=== PATIENT | male | born 1955 | race Caucasian/White ===

== ENCOUNTER 2020-08-11 05:54 | Observation (INO) ==
--- NOTE | 2020-07-29 10:15 | PAT Medication Instructions ---
Medication Instructions Date of Service July 29, 2020 Home Medications metoprolol succinate 50 mg PO QPM diclofenac sodium 75 mg PO BID PRN tramadol 50 mg PO TID PRN atorvastatin 20 mg PO QPM lisinopril-hydrochlorothiazide 1 tab PO QAM lisinopril 10 mg PO QPM ASK your surgeon for instructions diclofenac sodium 75 mg PO BID PRN DO NOT take the morning of surgery lisinopril-hydrochlorothiazide 1 tab PO QAM Take morning of surgery With a small sip of water, OTHERWISE NOTHING TO EAT OR DRINK AFTER MIDNIGHT: tramadol 50 mg PO TID PRN (if needed, may be taken up to four hours before surgery) Take evening before surgery metoprolol succinate 50 mg PO QPM tramadol 50 mg PO TID PRN (if needed) atorvastatin 20 mg PO QPM lisinopril 10 mg PO QPM Other Notes If you have any questions please call us at [phone] or [phone] or [phone] or [phone]
--- NOTE | 2020-07-30 09:38 | Anesthesiology Consultation ---
Date of Service July 30, 2020 Assessment & Plan (1) Encounter for pre-operative examination: - Per assessment on 07/30: Travel screen negative. No known COVID-19 positive contacts or current COVID-19 related symptoms. Patient was personally COVID positive 04/27/20 ([facility]). Symptoms at time of low grade fever, body aches, elevated BP > which has since resolved. DOS > 90 days since initial COVID positive test. Surgeon arranging preop COVID testing (scheduled 08/04; [place]). Awaiting results. - S/P Right ESWL: [place]31/19[place] [facility] [place]: 07/17/20: "recently diagnosed prostate cancer.. He has had evaluation via MRI, PSA, 4K, and recently prostate biopsy.. He had a very low volume but Allison 4+3 cancer.. He has no family history of prostate cancer.. He does have chronic voiding dysfunction.. He is not currently on any medications but experiences nocturia between 2 and 6 per night regularly.. He often has small volume, weak voids" Chart Review Chart Review: Acceptable Risk for Surgery and Patient seen in Pre Admission Testing Teaching & Discussion Pre-Anesthesia Teaching/Discussion Notes: Instructed NPO after midnight before surgery,except medications with 15 cc of water. Medication instructions provided according to the PAT guidelines. History Surgery Operation Date: 08/11/20 07:30 Proposed Procedures p Robotic Laparoscopic Assisted Radical Retropubic Prostatectomy, Possible Open, Possible Pelvic Lymph Node Dissection, Possible Suprapubic Tube Placement - Jose Cedillo MD Height/Weight Height: 5 ft 11 in Weight: 90.2 kg Allergies Allergy/AdvReac Type Severity Reaction Status Date / Time No Known Allergies Allergy Verified 07/28/20 10:41 Medications Home Medications Medication Instructions Recorded Confirmed Last Taken metoprolol succinate 50 mg PO QPM 04/19/18 07/28/20 11/27/19 diclofenac sodium 75 mg PO BID PRN 11/14/18 07/28/20 12/23/18 10:00 tramadol 50 mg PO TID PRN 05/29/19 07/28/20 11/27/19 atorvastatin 20 mg PO QPM 10/10/19 07/28/20 11/27/19 lisinopril-hydrochlorothiazide 1 tab PO QAM 10/10/19 07/28/20 02/17/20 lisinopril 10 mg PO QPM 07/28/20 07/28/20 Unknown Past Medical History Medical History Cancer BCC (chest, neck, back) s/p excision Chronic back pain Chronic neck pain Chronic prostatitis Depression stable off meds History of COVID-19 Dx 04/27/20 (report documented in [facility]) > symptoms at time of low grade fever, body aches, elevated BP > symptoms resolved/currently asymptomatic Hyperlipidemia Hypertension Kidney stones Osteoarthritis Exercise / Class Metabolic Activity II 4-5 Yardwork/Stairs/Walk up hill Past Family History Family History Father Diabetes Mother Hypertension Sister Cancer Past Surgical History Surgical History History of arthroscopy Right knee History of carpal tunnel release R/L History of lithotripsy Right ESWL: [place]31[place]19[place] [facility] [place] of tonsillectomy History of total knee arthroplasty Left Past Anesthesia History No Hx of Anesthesia Complications and No Family Hx of Anesthesia Complications History of PONV No Hx of PONV and Hx of Motion Sickness (rare) Social History Smoking Status: Never smoker Do You Dip or Chew Tobacco: No Hx Alcohol Use: No Hx Substance Use: No substance use type: does not use Review of Systems Rare snoring. Patient denies chest pain, shortness of breath, dyspnea on exertion, fever, chills, cough, wheezing, palpitations. Physical Exam Vital Signs VITALS BP 155/92 P 64 TEMP 98.3 SP02 99%RA RESP 16 PHYSICAL Full neck and c-spine range of motion. Full TMJ range of motion. TMD 4 finger breaths Mallampati Score 1 Dentition: several teeth missing/broken including right front side tooth, poor dentition Lungs: clear throughout to auscultation Cardiac: regular rate and rhythm, no murmurs noted Spine: normal Carotid arteries: negative bruit Extremities: no edema Testing Laboratory Results 07/30/20 09:54 07/30/20 09:54 Urine Color Dark Yellow 07/30/20 09:54 Urine Appearance Clear (Clear) 07/30/20 09:54 Urine pH 5.0 (4.5-7.5) 07/30/20 09:54 Ur Specific [place] 1.028 (1.000-1.030) 07/30/20 09:54 Urine Protein Negative (Negative) 07/30/20 09:54 Urine Glucose (UA) Negative (Negative) 07/30/20 09:54 Urine Ketones Trace (Negative) H 07/30/20 09:54 Urine Nitrite Negative (Negative) 07/30/20 09:54 Ur Leukocyte Esterase Negative (Negative) 07/30/20 09:54 Blood Type O Positive 07/30/20 09:54 Antibody Screen NEGATIVE 07/30/20 09:54 Electrocardiogram Date: 10/10/19 Findings: + NSR @ (80) Chest X-Ray Date: 07/03/20 Findings: + NAD
[2020-07-30 10:22] LABS: Basophils # (auto) 0.03 K/uL (0-0.2); Basophils % (auto) 0.4 %; Eosinophils % (auto) 2.8 %; Hematocrit (blood only) 44.7 % (42-52); Hemoglobin 14.9 g/dL (14.0-18.0); Immature Granulocytes # (auto) 0.02 K/uL (0.00-0.02); Immature Granulocytes % (auto) 0.3 %; Lymphocytes # (auto) 1.91 K/uL (1.2-3.4); Lymphocytes % (auto) 26.6 %; Mean Corpuscular Hemoglobin 31.4 pg (25-34); Mean Corpuscular Hgb Conc 33.3 g/dL (32-36); Mean Corpuscular Volume 94.1 fL (80-100); Mean Platelet Volume 9.3 fL (7.4-10.4); Monocytes # (auto) 0.85 K/uL (0.11-0.59); Monocytes % (auto) 11.8 %; Neutrophils # (auto) 4.18 K/uL (1.4-6.5); Neutrophils % (auto) 58.1 %; Platelet Count 271 K/uL (130-400); RDW Coefficient of Variation 14.9 % (11.5-14.5); Red Blood Count 4.75 M/uL (4.7-6.1); White Blood Count 7.19 K/uL (4.8-10.8)
[2020-07-30 10:30] LABS: Appearance Urine Clear (Clear); BUN Creatinine Ratio 22.7 (10-20); Bilirubin Urine Negative (Negative); Blood Urine Negative (Negative); Calcium 9.1 mg/dl (8.5-10.1); Color Urine Dark Yellow; Creatinine Clr Calc Pharmacy 76.6 ml/min; Est GFR (African American) 89.4; Est GFR (Non-African American) 77.1; Glucose Urine UA Negative (Negative); Ketones Urine Trace (Negative); Leukocyte Esterase Urine Negative (Negative); Nitrite Urine Negative (Negative); Potassium 4.3 mmol/L (3.5-5.1); Protein Urine Negative (Negative); Specific Gravity Urine 1.028 (1.000-1.030); Urobilinogen Urine Negative (Negative)
[2020-08-11] MEDS ORDERED: HEPARIN SOD 5,000 UNIT/0.5 ML VIAL SQ SCH (06:00)
[2020-08-11] MEDS ORDERED: LR 15ML/HR IV SCH (06:00)
[2020-08-11] MEDS ORDERED: HYDROmorphone INJ 2 MG/ML SYR/VIAL IV PRN (07:13)
[2020-08-11] MEDS ORDERED: PROMETHAZINE HCL 12.5 MG in SODIUM CHLORIDE 0.9% 50 ML IV PRN (07:13)
[2020-08-11] MEDS ORDERED: ONDANSETRON INJ 2 MG/ML 2 ML VIAL IV PRN ×2 (07:13→12:10)
[2020-08-11] MEDS ORDERED: ePHEDrine sulfate 50 MG/ML AMP IV PRN (07:13)
[2020-08-11] MEDS ORDERED: ATROPINE SULFATE 0.1 MG/ML 10ML SYR IV PRN (07:13)
[2020-08-11] MEDS ORDERED: METOCLOPRAMIDE HCL INJ 5 MG/ML 2 ML VIAL IV PRN (07:13)
[2020-08-11] MEDS ORDERED: fentaNYL citrate 100 MCG/2 ML VIAL ONE (07:21)
[2020-08-11] MEDS ORDERED: MIDAZOLAM HCL 1 MG/ML 2ML VIAL ONE (07:21)
--- NOTE | 2020-08-11 07:33 | History & Physical Bridge Note ---
Date of Service August 11, 2020 History & Physical Bridge Note I have examined the patient, reviewed the History & Physical and in the interval since the performance of the History & Physical I have noted the following changes of clinical significance: no changes noted
[2020-08-11] MEDS ORDERED: BELLADONNA/OPIUM SUPP 60 MG SUPP PR ONE (08:04)
[2020-08-11] MEDS ORDERED: ONDANSETRON INJ 2 MG/ML 2 ML VIAL ONE (08:22)
[2020-08-11] MEDS ORDERED: LARYING-O-JET KIT (LTA) ONE (08:22)
[2020-08-11] MEDS ORDERED: PHENYLEPHRINE 100MCG/ML 5ML SYR ONE (08:22)
[2020-08-11] MEDS ORDERED: LIDOCAINE HCL 2% 2 ML VIAL/AMP(20MG/ML) INFIL ONE (08:22)
[2020-08-11] MEDS ORDERED: DEXAMETHASONE SOD INJ 4 MG/ML VIAL ONE (08:22)
[2020-08-11] MEDS ORDERED: GLYCOPYRROLATE 0.2 MG/ML VIAL ONE (08:22)
[2020-08-11] MEDS ORDERED: PROPOFOL IV EMULSION 10 MG/ML 20 ML VIAL IV ONE (08:22)
[2020-08-11] MEDS ORDERED: ROCURONIUM BROMIDE 10 MG/ML 5 ML VIAL IV ONE ×4 (08:22→09:25)
[2020-08-11] MEDS ORDERED: ePHEDrine sulfate 50 MG/ML SYR ONE (08:22)
[2020-08-11] MEDS ORDERED: NEOSTIGMINE METHYLSULFATE 5 MG/5 ML SYR ONE (08:22)
[2020-08-11] MEDS ORDERED: HYDROmorphone INJ 2 MG/ML SYR/VIAL ONE (08:23)
[2020-08-11] MEDS ORDERED: ceFAZolin 2000MG 2,000 MG/15 ML SYR IV ONE (09:06)
[2020-08-11] MEDS: BUPIVACAINE 0.5 % 5 MG/1 ML MPF 30ML VIAL ONE ×2 (10:30→12:24)
[2020-08-11] MEDS: fentaNYL citrate 100 MCG/2 ML VIAL IV PRN ×3 (10:55→11:20)
--- NOTE | 2020-08-11 11:04 | Operative Report ---
[facility] Post Operative Report Pre & Post Diagnosis Operation Date: 08/11/20 07:30 Pre-Op Diagnosis: Prostate Cancer Post-Op Diagnosis: Prostate Cancer I identified the patient and participated in the time-out.: Yes Procedure Operation Date: 08/11/20 07:30 Actual Procedures p Robotic Laparoscopic-Assisted Radical Retropubic Prostatectomy with Bilateral Pelvic Lymph Node Dissection(Not Applicable) - Jose Cedillo MD Surgeon Bladimir Cedillo MD Community Outreach Specialist Olinda Toscano Estimated Blood Loss 50 Findings Consistent with Post-Op Diagnosis Specimens 1. Periprostatic fat 2. Prostate and seminal vesicles 3. Left pelvic lymph nodes 4. Right pelvic lymph nodes Description of Procedure The patient was identified in the preoperative holding area, appropriate informed consents were reviewed and completed, and he was transported to the operating suite. Subcutaneous heparin was administered in the pre-operative h olding area. Upon arrival in the operating suite, he received appropriate antibiotics and general anesthesia. He was positioned in dorsal lithotomy, a B&O suppository was inserted after digital rectal exam, and he was prepped and draped in standard fashion. A Gallardo catheter was inserted in the sterile field. A Veress needle was passed per umbilicus with uniform insufflation of the abdomen to 15mmHg. He was placed in steep Trendelenburg position. A periumbilical incision was then made to accommodate a 12mm Visiport with 10mm 0degree laparoscope. Inspection of the abdomen was carried out, and there was no evidence of traumatic entry or injury secondary to the Veress needle. After confirming a clear anterior abdominal wall, ports were subsequently placed in standard robotic prostatectomy fashion without incident. To begin the robotic portion of the case, the left lateral aspect of the sigmoid was mobilized off of the left pelvic side wall to allow the pouch of Octavio to be appropriately visualized. I then made an incision in the pouch of Octavio, overlying the seminal vesicles. Both SVs as well as the ampullae of the vasa were entirely dissected, with the vasa transected 3cm from the prostate. The medial umbilical ligaments were then controlled with bipolar electrocautery just inferior to the umbilicus. Following cauterization, they were divided utilizing monopolar cautery. A peritoneal incision was carried from this location to the medial aspect of the internal inguinal rings bilaterally with care to avoid opening through the ring. This incision was concluded when the vas deferens was reached. Dissection of the bladder and prostate off of the posterior aspect of the pubic arch was completed allowing full visualization of the prostate. The fat overlying the prostate was removed en bloc and passed off the table as a specimen labeled "periprostatic fat". The endopelvic fascia was cleared during this portion of the procedure, and subsequently opened - first on the right and then the left. The incision through the endopelvic fascia began near the prostate-bladder junction and was carried to the apex with extreme care to preserve all lateral levator musculature as well as the periurethral musculature and sphincter complex. I additionally preserved the puboprostatic ligaments. I then controlled the DVC with a 3-0 V-lock suture in overlapping/figure of 8 fashion. The lymph node dissection was then conducted. External iliac vessels were identified on the pelvic side wall. The packet of fat and lymphatic tissue that resides just under the iliac vein was elevated and off of the vein with a split and roll technique. The packet was dissected laterally to the circumflex vein and distally to the obturator nerve which was preserved. The proximal aspect of the packet was carried towards the bifurcation of the iliac vessels. A combination of monopolar and bipolar cautery were used to assist with control. After completing the dissection on both sides, the packets were collected and passed off of the table as specimens labeled "pelvic lymph nodes". My attention then returned to the prostate, with identification of the bladder neck aided by gentle traction on the Gallardo catheter and lateral to medial pressure at the presumed level of the bladder neck with the robotic instruments. An anterior cystotomy was made, the Gallardo balloon deflated and the catheter guided through the incision to allow anterior retraction. I attempted to preserve maximal bladder neck musculature as I circumferentially dissected around the bladder neck. After incision through the posterior aspect of the mucosa, the dissection was carried through detrusor muscle until the bilateral ampullae of the vasa were identified. The previously dissected vasa and SVs were brought through the incision and used to elevated the prostate anteriorly. A posterior plane behind the prostate was then developed - splitting Denonvilliers's fascia. This dissection was carried as far as possible towards the apex as well as far as possible laterally. An incision in the lateral prostatic fascia was then made bilaterally to facilitate control of the vascular pedicles and preservation of the nerve bundles. Vasculature running along the posterior/lateral aspect of the prostate was preserved as well as the tissue containing the nerves. The pedicles were then controlled with a series of Weck clips. As I dissected along the right lateral aspect of the prostate the prostate itself did start to split, I was able to correct include all prostatic tissue with the specimen, however there was a small tear in the capsule of the prostate. Further inspection revealed that all prostate tissue was appropriately removed. The apical attachments of the prostate were remaining at that stage. The DVC was divided after control with bipolar cautery over the prostate. Continuous inspection from anterior and lateral views allowed me to closely follow the a pical contour of the prostate and maximally preserve urethral length and tissue. The prostate was entirely freed at that point, and collected in an EndoCatch bag before being moved out of the field of vision. Hemostasis was confirmed and anastomosis of the bladder and urethra was completed utilizing a double armed V- Lock stitch. A new Gallardo catheter was inserted and the anastomosis tested with irrigation. There was no evidence of leak. A navi style stitch was placed bilaterally to functionally marsupialize the area of the lymph node dissection. The robot was undocked, the specimen extracted through expansion of the carine- umbilical camera port. The fascia was closed with a series of 0-PDS figure of 8 stitches. The right certified pharmacist assistant port was closed in two layers - with a figure of 8 0-Vicryl to reapproximate the fascia followed by 4-0 Monocryl to close the skin. Monocryl was used to close all other skin incisions. All wounds were dressed with Dermabond. Olinda Toscano assisted from incision to closure. The case was concluded and the patient taken to the PACU in stable condition. I attest to the content of the Intraoperative Record and any orders documented therein. Any exceptions are noted below.
[2020-08-11 11:16] LABS: Basophils # (auto) 0.02 K/uL (0-0.2); Basophils % (auto) 0.2 %; Eosinophils # (auto) 0.02 K/uL (0-0.5); Eosinophils % (auto) 0.2 %; Hematocrit (blood only) 42.8 % (42-52); Hemoglobin 14.6 g/dL (14.0-18.0); Immature Granulocytes # (auto) 0.02 K/uL (0.00-0.02); Immature Granulocytes % (auto) 0.2 %; Lymphocytes # (auto) 0.82 K/uL (1.2-3.4); Lymphocytes % (auto) 7.8 %; Mean Corpuscular Hemoglobin 31.7 pg (25-34); Mean Corpuscular Volume 92.8 fL (80-100); Mean Platelet Volume 9.1 fL (7.4-10.4); Monocytes # (auto) 0.13 K/uL (0.11-0.59); Monocytes % (auto) 1.2 %; Neutrophils # (auto) 9.48 K/uL (1.4-6.5); Neutrophils % (auto) 90.4 %; Platelet Count 209 K/uL (130-400); RDW Coefficient of Variation 14.5 % (11.5-14.5); RDW Standard Deviation 49.3 fL (36.4-46.3); Red Blood Count 4.61 M/uL (4.7-6.1); White Blood Count 10.49 K/uL (4.8-10.8)
[2020-08-11 11:18] LABS: Mean Corpuscular Hgb Conc 34.1 g/dL (32-36)
[2020-08-11 11:32] LABS: BUN Creatinine Ratio 18.5 (10-20); Calcium 8.9 mg/dl (8.5-10.1); Creatinine Clr Calc Pharmacy 60.5 ml/min; Est GFR (African American) 67.1; Est GFR (Non-African American) 57.9; Potassium 4.1 mmol/L (3.5-5.1)
[2020-08-11] MEDS ORDERED: MoRPHine SULFATE 2 MG/ML CARP IV PRN ×2 (12:10)
[2020-08-11] MEDS ORDERED: oxyCODONE HCL IR 5 MG TAB (IMMEDIATE RELEASE) PO PRN (12:10)
[2020-08-11] MEDS ORDERED: ACETAMINOPHEN 325 MG TAB PO PRN (12:10)
[2020-08-11] MEDS: LACTATED RINGER'S 1,000 ML IV SCH ×2 (12:37→21:38)
--- NOTE | 2020-08-11 13:51 | Anesthesiology Progress Note ---
Date of Service August 11, 2020 Anesthesia Post Procedure Vital Signs Vital Signs: Temp Pulse Pulse Resp BP BP Pulse Ox 08/11/20 12:58 95 H 16 153/84 H 96 08/11/20 12:29 36.9 C 93 H 16 144/94 H 92 08/11/20 12:01 36.3 C L 86 16 139/88 94 08/11/20 11:50 97 H 16 136/98 95 08/11/20 11:45 86 12 135/89 94 08/11/20 11:35 36.6 C 85 13 140/90 98 08/11/20 11:25 86 14 135/82 95 08/11/20 11:15 89 13 134/93 96 08/11/20 11:05 83 20 159/94 H 97 08/11/20 10:55 88 14 155/93 H 98 08/11/20 10:47 36.4 C L 97 H 12 166/100 H 97 08/11/20 06:10 36.7 C 107 H 18 148/107 H 97 Pain Intensity Abdomen: Pain Intensity: 4 Transfer of Care Handoff Completed per policy Notes Mental Status: alert / awake / arousable and participated in evaluation Patient Amnestic to Procedure: Yes Nausea / Vomiting: adequately controlled Pain: adequately controlled Airway Patency, RR, SpO2: stable & adequate BP & HR: stable & adequate Hydration State: stable & adequate Anesthetic Complications: no major complications apparent
[2020-08-11] MEDS: oxyCODONE HCL IR 5 MG TAB (IMMEDIATE RELEASE) PO PRN ×2 (14:21→21:31)
[2020-08-11] MEDS: ceFAZolin 2000MG 2,000 MG/15 ML SYR IV SCH (16:01)
[2020-08-11] MEDS ORDERED: METOPROLOL SUCC 50MG EXT REL TAB PO SCH (21:00)
[2020-08-11] MEDS ORDERED: ATORVASTATIN 20 MG TAB PO SCH (21:00)
[2020-08-11] MEDS ORDERED: lisinopril 10 MG TAB PO SCH (21:00)
[2020-08-11] MEDS: HEPARIN SOD 5,000 UNIT/0.5 ML VIAL SQ SCH (21:31)
[2020-08-11] MEDS: OXYBUTYNIN CHLORIDE 5 MG TAB PO SCH (21:34)
[2020-08-12] MEDS: ceFAZolin 2000MG 2,000 MG/15 ML SYR IV SCH (00:05)
[2020-08-12] MEDS: oxyCODONE HCL IR 5 MG TAB (IMMEDIATE RELEASE) PO PRN ×2 (01:41→09:24)
[2020-08-12 06:27] LABS: Basophils # (auto) 0.01 K/uL (0-0.2); Basophils % (auto) 0.1 %; Eosinophils # (auto) 0.02 K/uL (0-0.5); Eosinophils % (auto) 0.2 %; Hematocrit (blood only) 39.5 % (42-52); Hemoglobin 13.3 g/dL (14.0-18.0); Immature Granulocytes # (auto) 0.04 K/uL (0.00-0.02); Immature Granulocytes % (auto) 0.3 %; Lymphocytes # (auto) 2.21 K/uL (1.2-3.4); Mean Corpuscular Hemoglobin 31.3 pg (25-34); Mean Corpuscular Hgb Conc 33.7 g/dL (32-36); Mean Corpuscular Volume 92.9 fL (80-100); Mean Platelet Volume 9.3 fL (7.4-10.4); Monocytes # (auto) 1.53 K/uL (0.11-0.59); Monocytes % (auto) 11.8 %; Neutrophils # (auto) 9.18 K/uL (1.4-6.5); Neutrophils % (auto) 70.6 %; Platelet Count 209 K/uL (130-400); RDW Coefficient of Variation 14.7 % (11.5-14.5); RDW Standard Deviation 50.2 fL (36.4-46.3); Red Blood Count 4.25 M/uL (4.7-6.1); White Blood Count 12.99 K/uL (4.8-10.8)
[2020-08-12 06:58] LABS: BUN Creatinine Ratio 18.8 (10-20); Calcium 8.2 mg/dl (8.5-10.1); Creatinine Clr Calc Pharmacy 67.3 ml/min; Est GFR (African American) 76.4; Est GFR (Non-African American) 65.9; Potassium 3.7 mmol/L (3.5-5.1)
[2020-08-12] MEDS: LACTATED RINGER'S 1,000 ML IV SCH (07:07)
--- NOTE | 2020-08-12 08:20 | Urology Progress Note ---
Date of Service August 12, 2020 Assessment & Plan (1) Prostate cancer: pod #1 s/p RALP w/ LND - ambulate - HL IVF - advance diet - likely d/c home this afternoon Admission and Anticipated Discharge Date Admission Date: August 11, 2020 Subjective doing very well slept well ambulated pain controlled urine clear Physical Exam Physical Exam: abd soft incisions appropriate urine clear Results & Data ([facility]) Vital Signs (Past 12 Hours) Vital Signs Temp Pulse Resp BP BP Pulse Ox 08/12/20 07:11 36.8 C 60 17 116/71 99 08/12/20 03:50 36.7 C 70 18 103/45 L 94 08/11/20 22:53 37.3 C 84 18 112/46 L 93 PG Care Time/CCT Total # of Minutes Spent Total Time Spent with Patient: Total time spent is greater than 50% in coordination of care (as documented) at patient's floor/unit and/or counseling patient: Coding Level of Care Code 43099 Subseq Hosp Care Lvl 2 Diagnoses Prostate cancer C61
[2020-08-12] MEDS ORDERED: LISINOPRIL/HCTZ 20/12.5MG 1 TAB TAB PO SCH (09:00)
[2020-08-12] MEDS: OXYBUTYNIN CHLORIDE 5 MG TAB PO SCH (09:15)
[2020-08-12] MEDS: HEPARIN SOD 5,000 UNIT/0.5 ML VIAL SQ SCH (09:16)
--- NOTE | 2020-08-12 13:29 | Discharge Summary ---
Date of Service August 12, 2020 Admission HPI Per Admitting Provider 64-year-old gentleman with recently diagnosed prostate cancer He has had evaluation via MRI, PSA, 4K, and recently prostate biopsy He had a very low volume but Allison 4+3 cancer He has no family history of prostate cancer He does have chronic voiding dysfunction He is not currently on any medications but experiences nocturia between 2 and 6 per night regularly He often has small volume, weak voids He has not currently sexually active nor does he feel that this is a priority He has not had prior abdominal surgery He does have chronic arthritic related issues including prior left knee replacement Chronic back pain related to scoliosis He has had an extensive history of basal cell carcinomas of the skin Admission Exam Per Admitting Provider See H&P Principal Diagnosis Prostate Cancer Discharge Exam Constitutional well developed, well nourished and comfortable; no acute distress Respiratory normal respiratory effort and able to speak in complete sentences; no respirat ory distress and no audible wheezes Cardiovascular Extremities: no calf tenderness and no edema Gastrointestinal (Abdomen) Inspection/Auscultation: abdomen not distended abd soft incisions appropriate Psychiatric Orientation: alert, oriented x 3 and cooperative Motor Behavior: steady gait and station Affect: euthymic affect Genitourinary Pantoja catheter intact draining clear yellow urine. Discharge Data Allergies Allergy/AdvReac Type Severity Reaction Status Date / Time No Known Allergies Allergy Verified 08/11/20 06:08 Procedures Performed Operation Date: 08/11/20 07:30 Actual Procedures p Robotic Laparoscopic-Assisted Radical Retropubic Prostatectomy with Bilateral Pelvic Lymph Node Dissection(Not Applicable) - Jose Cedillo MD Hospital Course (1) Prostate cancer: Patient admitted status post robotic laparoscopic-assisted radical retropubic prostatectomy with bilateral pelvic lymph node dissection on 08/11/20. No complications post procedure, tolerated well. He was seen POD#1, feeling well, clinically progressing. Vital signs and post-operative labs appropriate and as expected. Pain controlled, tolerating advanced diet, ambulating without dizziness. Discharged home in stable condition 08/12/20, home with pantoja catheter. Total Time Total Time Spent Total Time Spent (In Minutes): 10 Discharge Plan Discharge Items Patient Disposition: Home - Self-Care Reason For Visit: Prostate Cancer Discharge Diagnosis: Prostate Cancer Activity: Per Instructions section Lifting: No more than 10 pounds Bathing Comment: No tub baths or soaking. Okay to shower tomorrow. Sexual Activity: Wait until after follow-up appointment Exercise/Sports: Wait until after follow-up appointment Driving/Machine Use: Do not drive while taking narcotic pain medication. Non-emergency contact: Surgeon and Urologist Call non-emergency contact if: your pain is not controlled, your temperature is above 101, your wound has increased redness, your wound has increased drainage and your wound pain has increased Follow-up/Referrals: Jose Cedillo MD [Physician] - 08/26/20 11:45 am Braden Zamora MD [Primary Care Provider] - 08/17/20 11:20 am [facility]rology,Nurse [FAKE FOR SCHEDULES] - 08/17/20 10:00 am Diet: Regular Addtl Attending Provider Instructions: Please take all medications as prescribed and keep all follow-ups as scheduled. Please call our office at [phone] with any questions, concerns or need to reschedule appointments for any reason. We are happy to assist you We have sent an antibiotic to your pharmacy of choice. Please begin antibiotic as prescribed the day BEFORE your scheduled voiding trial at [facility]. Please continue antibiotic every 12 hours through the day AFTER your voiding trial. If you take the as needed pain medication, Percocet, do not take your prescribed Tramadol. Do not take medication together on the same day. Activity: We recommend having someone with you for the first few days after surgery to help care for you. For the first 2 weeks after surgery, we would like you to get up and walk around your house. However, we recommend limit physical activity that would increase your heart rate. This will allow your body to rest and heal. Take naps if you feel tired. Don't lift anything heavier than 10 pounds, mow the law or ride a bicycle until your follow-up appointment. Please avoid long car rides. Home Care: Unless directed otherwise, drink 6 to 8 glasses of water a day (enough to keep your urine light colored). This will also help keep a healthy flow of urine. We recommend using a stool softener for the first two weeks to avoid constipation. Pantoja Catheter or Suprapubic Catheter care: Keep the catheter well secured with either a leg back or leg strap with large bag. Empty your bag when it's about half full. You may notice some blood in the bag. This is normal after surgery and while the catheter is in place. Use mild soap (such as Dove or Dial) and water to wash the catheter and the head of your penis daily, or more frequently if needed. Return to your normal diet, we encourage good protein intake to promote healing. You may shower as normal. Please avoid tub baths or soaking until catheter removed and incisions well healed. Wearing sweat pants while you have the catheter is recommended, they will be more comfortable. Follow-up Your follow up appointments for having your catheter removed, and follow up with your physician should already be scheduled. If you have any questions regarding this, please contact our office. Your final pathology report will be discussed at your physician follow-up appointment. Call [facility] at [phone] right away if you have any of the following: Chest pain or trouble breathing (call 271 or go to the hospital) Fever of 101F or higher, uncontrolled vomiting Heavy bleeding, clots, or bright red blood from the catheter Catheter that falls out or stops draining Foul-smelling discharge from your catheter Redness, swelling, warmth, or increased pain at your incision site Drainage, pus, or bleeding from your incision Pending Studies at Discharge: Yes Studies:: pathology Stand-Alone Forms: My [facility], Opioid Pain Management, Work/School Release (Inpt), Smoking Cessation Medications and DC Order Prescriptions: New ciprofloxacin HCl 500 mg tablet 500 mg PO BID 3 Days Qty: 6 RF: 0 docusate sodium [Colace] 100 mg capsule 100 mg PO BID Qty: 60 RF: 0 oxycodone-acetaminophen [Percocet] 5-325 mg tablet 1 tab PO TID PRN (Reason: pain) Qty: 7 RF: 0 Continued metoprolol succinate 25 mg tablet extended release 24 hr 50 mg PO QPM RF: 0 diclofenac sodium 75 mg tablet,delayed release (DR/EC) 75 mg PO BID PRN (Reason: Moderate Pain (Scale Score 5-6)) RF: 0 tramadol 50 mg Tablet 50 mg PO TID PRN (Reason: Pain) RF: 0 atorvastatin 20 mg tablet 20 mg PO QPM RF: 0 lisinopril-hydrochlorothiazide 20-12.5 mg tablet 1 tab PO QAM RF: 0 lisinopril 10 mg Tablet 10 mg PO QPM RF: 0 Discharge Orders: Discharge Order (Routine); Ordered 08/12/20 Ordered By: Olinda Vicente/Other Patient Handouts: Emptying and Cleaning Your ..., Indwelling Urinary Catheter Dc, Discharge Instructions Caring for ... Admission Data Admit Date/Time: 08/11/20 10:37 Attending Provider: Jose Cedillo Admit Provider: Jose Cedillo Primary Care Provider: Braden Zamora Other Interventions: Discharge Summary Assessment (RN) Last Done: 08/12/20 12:28 Coding Level of Care Code D/C Day Management <30 mins Diagnoses Prostate cancer C61
== END 2020-08-12 13:48 | disposition home or self-care (01) ==
LOC: ASU 05:54 → INTOOBSV 10:37 → 3N 10:37

== ENCOUNTER 2022-10-30 14:12 | Inpatient (IN) ==
[2022-10-30] MEDS ORDERED: ONDANSETRON INJ 2 MG/ML 2 ML VIAL IV STA (14:31)
[2022-10-30] MEDS ORDERED: ACETAMINOPHEN 500 MG TAB PO STA (14:31)
[2022-10-30] MEDS ORDERED: MoRPHine SULFATE 4 MG/ML 1 ML CARP\\VIAL IV STA (14:31)
[2022-10-30] MEDS ORDERED: LABETALOL HCL IV 5 MG/ML 20ML IV STA (14:31)
[2022-10-30] MEDS ORDERED: KETOROLAC TROMETHAMINE 15 MG/ML VIAL IV STA (14:31)
--- NOTE | 2022-10-30 14:43 | Emergency Department Note ---
Impression & Plan Lower back pain, Sciatica, Hypertensive urgency, Urinary incontinence, Failure of outpatient treatment ED Provider Note NAME: IZZY RICE AGE: 67 SEX: M : 1955 ARRIVES VIA: Walk-In INFORMANT: [Patient] ED PROVIDER(S): [Genaro Trevino MD] CHIEF COMPLAINT: Back pain HISTORY OF PRESENT ILLNESS: The patient is a 67-year-old male with back pain. He has been to this ER several times over the last month to 2 months. The patient is currently on tramadol, he is prescribed 120 tramadol every month. He is on gabapentin and he also has some diclofenac. The patient has taken courses of steroids to help with his back pain, he has used some short prescriptions of oxycodone. 6 days ago, the patient was at her ED and a lumbar MRI was done. There was significant stenosis and some chronic findings but there was nothing thought to be acutely pathologic and in need of emergent surgery. The patient presents today complaining of increasing back pain and pain in the left buttock and down the left leg. He has lost urinary continence twice. No issues with his bowels. No fever, no cough or congestion. He has not fallen. The patient is currently still working. The patient worked the last 6 out of 7 days. The patient states that he is due to start PT this upcoming week. He has an appointment with his back surgeon in the [place] area December 06. Of note, as per triage, the patient is quite hypertensive. He states he did take his BP medications this morning. PMHx/PSHx: See Below SOCIAL HISTORY: See Below. PHYSICAL EXAM: GENERAL: Patient is in no acute distress. HEENT: No acute trauma, normocephalic atraumatic, mucous membranes moist, no nasal congestion. NECK: No stridor, no adenopathy, no meningismus, trachea is midline. LUNGS: Clear to auscultation bilaterally, no wheeze, no rhonchi, breath sounds equal. HEART: Mildly tachycardic, regular rhythm, no murmurs. ABDOMEN: Soft, nontender, bowel sounds positive, no peritonitis. No bladder distention noted. EXTREMITIES: No cyanosis or edema, full range of motion of all the joints without pain or difficulty, no signs for acute trauma. NEUROLOGIC: Oriented x 3, no acute motor or sensory deficits, no focal weakness. 2/4 patellar and Achilles reflexes bilaterally. Patient has sensation around the anus and perineum. His anal wink is intact. SKIN: No rash, no jaundice, no diaphoresis. DIFFERENTIAL DIAGNOSIS: Lumbar disc disease, disc herniation, nerve impingement, spinal stenosis, urinary retention, UTI, cauda equina syndrome, among others. EMERGENCY DEPARTMENT COURSE/PROCEDURES: Prior/Outside records reviewed: Recent ED visits, recent radiology reports. Postvoid bladder scan: 0 cc, no urinary retention. ECG per my interpretation: Indication was back pain. The ECG shows a normal sinus rhythm with a rate of 99. There is no ST elevation, no PVCs. The QTc is 446. MEDICAL DECISION MAKING: There is no leukocytosis or concerning anemia. There is a normal platelet count . No renal failure or significant electrolyte abnormality. C-reactive protein is not elevated. Sed rate is not elevated. Urinalysis shows some red blood cells, no infection. COVID test returned negative. Postvoid bladder scan did not show any significant urinary retention. On exam, the patient was not febrile. He had equal reflexes in his lower extremities bilaterally. He had a normal sensory exam in the groin and perineum. He had normal anal tone/wink. I did review the patient's recent visits as well as the recent MRI imaging. I did speak with Dr. Lopez of spinal surgery. The patient will be hospitalized and seen by spinal surgery in the morning. No reason for a new emergent MRI today. Patient received IV labetalol because of his higher blood pressure. He was given IV morphine for pain, IV Toradol for pain. He was given oral Tylenol. He received IV Zofran. Patient's blood pressure has come down slightly. He does seem more comfortable with the above medications administered. The patient will be hospitalized for pain control and pain management/spinal surgery consult. He will have his blood pressure controlled I did speak with case management, the on-call hospitalist was consulted. DISPOSITION: Patient's presentation and findings warrant a hospital stay. Past Med/Surg History Medical History Anxiety Arthritis Cancer BCC (chest, neck, back) s/p excision Chronic back pain Chronic neck pain Chronic prostatitis Depression stable off meds Depression with suicidal ideation History of COVID-19 Dx 04/27/20 (report documented in [facility]) > symptoms at time of low grade fever, body aches, elevated BP > symptoms resolved/currently asymptomatic History of nocturia Hyperlipidemia Hypertension Lumbar radiculopathy Osteoarthritis Prostate cancer Surgical History History of arthroscopy Right knee History of carpal tunnel release R/L History of lithotripsy Right ESWL: 05/31/19: LMA#5 at [facility] History of tonsillectomy History of total knee arthroplasty Left History of total right knee replacement (TKR) (~08/2021) [facility] Hx of prostatectomy due to cancer and no chemo/radiation needed Family History Father Diabetes Mother Hypertension Sister Cancer Social History Smoking Status: Never smoker Tobacco Type: Cigarettes Second Hand Exposure: No; Do You Dip or Chew Tobacco: No; Hx Alcohol Use: No Hx Substance Use: No Preferred Language: Slovak Communication Ability: Effective Visual Impairment: No Limitations Hearing Ability: Normal Boarding Kennel Or Cattery Operator Required: No Beliefs That Will Affect Care: None marital status: Current Living Situation: Family Current Living Situation Comment: SON BARBARA LIVES WITH PT current occupational status: employed How many Children do You have: 3 Feels Safe at Home: Yes Assistive Devices: None Allergies Allergies Allergy/AdvReac Type Severity Reaction Status Date / Time No Known Allergies Allergy Verified 10/24/22 22:16 Home Meds Home Medications Medication Instructions Recorded Confirmed atorvastatin 20 mg tablet 20 mg PO QAM 10/10/19 10/30/22 metoprolol succinate 50 mg 50 mg PO QAM 01/13/21 10/30/22 tablet,extended release 24 hr gabapentin 300 mg capsule See Rx Instructions .Route .COMPLEX 06/13/21 10/30/22 lisinopril 20 mg tablet 20 mg PO DAILY 06/13/21 10/30/22 escitalopram oxalate 10 mg tablet 10 mg PO QAM 12/04/21 10/30/22 amlodipine 10 mg tablet 10 mg PO QAM 01/25/22 10/30/22 lisinopril 20 1 tab PO QAM 01/25/22 10/30/22 mg-hydrochlorothiazide 25 mg tablet albuterol sulfate 90 mcg/actuation 2 puff inhalation Q6H PRN 10/24/22 10/30/22 aerosol inhaler COUGH/WHEEZING meclizine 25 mg tablet 12.5 - 25 mg PO TID PRN Dizziness 10/24/22 10/30/22 ondansetron 4 mg disintegrating 4 mg PO Q8H PRN nausea and vomiting 10/24/22 10/30/22 tablet sennosides 8.6 mg tablet (Senokot) 17.2 mg PO QAM 10/24/22 10/30/22 spironolactone 25 mg tablet 25 mg PO QAM 10/24/22 10/30/22 tramadol 50 mg tablet 50 mg PO Q6H PRN pain 10/24/22 10/30/22 Results & Data (ED) Vital Signs Vital Signs - 24 hr 10/30/22 14:14 10/30/22 15:26 10/30/22 16:13 Temperature 37.0 C Temperature Source Temporal Artery Scan Pulse Rate 123 H Pulse Rate [Finger] 91 H 107 H Respiratory Rate 98 H 20 20 Respiratory Effort / Characteristics Non-Labored Non-Labored Spontaneous Non-Labored Spontaneous Respiratory Depth Normal Normal Respiratory Pattern Regular Regular Blood Pressure 203/123 H Blood Pressure [Right Arm] 165/119 H 164/104 H Blood Pressure Mean 149 Blood Pressure Mean [Right Arm] 134 124 Blood Pressure Position [Right Arm] Semi-fowlers Semi-fowlers Pulse Oximetry 98 96 95 Oxygen Delivery Method Room Air Room Air Room Air Sepsis Recent Fever Within 48 Hours No Sepsis New/Unexplained Change in Mental Status N/A Sepsis Action Taken by Nursing No Action Required Home Medications Current Medication List: was personally reviewed by me Laboratory Data Attestation: I reviewed the patient's lab results. 10/30/22 14:00 10/30/22 14:00 Lab Results 10/30/22 10/30/22 10/30/22 Range/Units 14:00 14:00 14:00 WBC 10.57 (4.8-10.8) K/ul RBC 4.93 (4.70-6.10) M/uL Hgb 15.2 (14.0-18.0) g/dl Hct 45.5 (42.0-52.0) % MCV 92.3 (80.0-100.0) fL MCH 30.8 (25.0-34.0) pg MCHC 33.4 (32.0-36.0) g/dL RDW Std Deviation 50.9 H (36.4-46.3) fL RDW Coeff of Jay 14.8 H (11.5-14.5) % Plt Count 270 (130-400) K/uL MPV 9.0 L (9.4-12.4) fL Immature Gran % (Auto) 1.5 % Neut % (Auto) 87.2 % Lymph % (Auto) 8.5 % [place] % (Auto) 2.5 % Eos % (Auto) 0.0 % Baso % (Auto) 0.3 % Neut # (Auto) 9.22 H (1.40-6.50) K/uL Lymph # (Auto) 0.90 L (1.2-3.4) K/uL [place] # (Auto) 0.26 (0.11-0.59) K/uL Eos # (Auto) 0.00 (0-0.50) K/uL Baso # (Auto) 0.03 (0-0.2) K/uL Immature Gran # (Auto) 0.16 (0.01-0.20) K/uL ESR 11 (0-20) mm/hr Sodium 139 (136-145) mmol/L Potassium 4.5 (3.5-5.1) mmol/L Chloride 103 (98-107) mmol/L Carbon Dioxide 27 (21-32) mmol/L Anion Gap 9 (3-11) BUN 19 (6-23) mg/dl Creatinine 0.96 (0.6-1.4) mg/dl Est Cr Clr Drug Dosing 85.9 ml/min Est GFR ( Amer) 93.8 ml/min Est GFR (Non-Af Amer) 80.9 ml/min BUN/Creatinine Ratio 19.8 (10-20) Glucose 166 H (70-99(Fasting)) mg/dl Calcium 9.2 (8.6-10.3) mg/dl C-Reactive Protein < 0.50 (0-0.5) mg/dl Urine Color Urine Appearance (Clear) Urine pH (4.5-7.5) Ur Specific [place] (1.000-1.030) Urine Protein (Negative) Urine Glucose (UA) (Negative) Urine Ketones (Negative) Urine Blood (Negative) Urine Nitrite (Negative) Urine Bilirubin (Negative) Urine Urobilinogen (Negative) Ur Leukocyte Esterase (Negative) Urine WBC (Auto) (0-5) /hpf Urine RBC (Auto) (0-4) /hpf U Hyaline Cast (Auto) (0-5) /lpf U Epithel Cells (Auto) (0-5) /lpf Urine Bacteria (Auto) (Negative) SARS-CoV-2, RNA, NAAT (NEGATIVE) 10/30/22 10/30/22 Range/Units 14:35 16:13 WBC (4.8-10.8) K/ul RBC (4.70-6.10) M/uL Hgb (14.0-18.0) g/dl Hct (42.0-52.0) % MCV (80.0-100.0) fL MCH (25.0-34.0) pg MCHC (32.0-36.0) g/dL RDW Std Deviation (36.4-46.3) fL RDW Coeff of Jay (11.5-14.5) % Plt Count (130-400) K/uL MPV (9.4-12.4) fL Immature Gran % (Auto) % Neut % (Auto) % Lymph % (Auto) % [place] % (Auto) % Eos % (Auto) % Baso % (Auto) % Neut # (Auto) (1.40-6.50) K/uL Lymph # (Auto) (1.2-3.4) K/uL [place] # (Auto) (0.11-0.59) K/uL Eos # (Auto) (0-0.50) K/uL Baso # (Auto) (0-0.2) K/uL Immature Gran # (Auto) (0.01-0.20) K/uL ESR (0-20) mm/hr Sodium (136-145) mmol/L Potassium (3.5-5.1) mmol/L Chloride (98-107) mmol/L Carbon Dioxide (21-32) mmol/L Anion Gap (3-11) BUN (6-23) mg/dl Creatinine (0.6-1.4) mg/dl Est Cr Clr Drug Dosing ml/min Est GFR ( Amer) ml/min Est GFR (Non-Af Amer) ml/min BUN/Creatinine Ratio (10-20) Glucose (70-99(Fasting)) mg/dl Calcium (8.6-10.3) mg/dl C-Reactive Protein (0-0.5) mg/dl Urine Color Yellow Urine Appearance Clear (Clear) Urine pH 6.0 (4.5-7.5) Ur Specific [place] 1.022 (1.000-1.030) Urine Protein 2+ H (Negative) Urine Glucose (UA) Negative (Negative) Urine Ketones Negative (Negative) Urine Blood 2+ H (Negative) Urine Nitrite Negative (Negative) Urine Bilirubin Negative (Negative) Urine Urobilinogen Negative (Negative) Ur Leukocyte Esterase Negative (Negative) Urine WBC (Auto) 0 (0-5) /hpf Urine RBC (Auto) 10-30 H (0-4) /hpf U Hyaline Cast (Auto) 1-5 (0-5) /lpf U Epithel Cells (Auto) 5-10 H (0-5) /lpf Urine Bacteria (Auto) Negative (Negative) SARS-CoV-2, RNA, NAAT NEGATIVE (NEGATIVE) Administered Medications Discontinued Medications Acetaminophen (Acetaminophen 500 Mg Tab) 1,000 mg PO NOW STA Stop: 10/30/22 14:32 Last Admin: 10/30/22 14:52 Dose: 1,000 mg Documented By: Diazepam (Diazepam 2 Mg Tablet) 2 mg PO NOW ONE Stop: 10/30/22 15:31 Last Admin: 10/30/22 15:30 Dose: 2 mg Documented By: Lisinopril/HCTZ (Lisinopril/Hctz 20/25mg 1 Tab) 1 tab PO ONE ONE Stop: 10/30/22 15:42 Last Admin: 10/30/22 16:14 Dose: 1 tab Documented By: AB Ketorolac Tromethamine (Ketorolac Tromethamine 15 Mg/Ml Vial) 15 mg IV ONE STA Stop: 10/30/22 14:32 Last Admin: 10/30/22 14:53 Dose: 15 mg Documented By: AB Labetalol HCl (Labetalol Hcl Iv 5 Mg/Ml 20ml) 10 mg IV NOW STA Stop: 10/30/22 14:32 Last Admin: 10/30/22 14:54 Dose: 10 mg Documented By: Co-signed By: MIMI Metoprolol Succinate (Metoprolol Succ 50mg Ext Rel Tab) 50 mg PO NOW STA Stop: 10/30/22 15:42 Last Admin: 10/30/22 16:14 Dose: 50 mg Documented By: AB Morphine Sulfate (Morphine Sulfate 4 Mg/Ml 1 Ml Carp\Vial) 6 mg IV NOW STA Stop: 10/30/22 14:32 Last Admin: 10/30/22 14:52 Dose: 6 mg Documented By: AB Ondansetron HCl (Ondansetron Inj 2 Mg/Ml 2 Ml Vial) 4 mg IV NOW STA Stop: 10/30/22 14:32 Last Admin: 10/30/22 14:53 Dose: 4 mg Documented By: Imaging Data Radiologist's Impression: Chest X-Ray 10/30/22 15:42 XR chest 1V portable CLINICAL HISTORY: pre op TECHNIQUE: Single frontal radiograph of the chest was obtained. Comparison: Comparison is made to chest radiograph 08/05/2022 FINDINGS: No lines and tubes are seen. Cardiomegaly is noted. Prominence and cephalization of the vasculature is seen. No evidence of pleural effusion or pneumothorax. IMPRESSION: Cardiomegaly and mild pulmonary edema. ACT 112: Negative or not required by law. Electronically signed by: Ken Álvarez M.D. 10/30/2022 4:24 PM Discharge Plan Visit Data Chief Complaint: Back Injury/Pain Stated Complaint: BACK PAIN, URINARY INCONTINENCE ED Provider: Genaro Trevino Discharge Problem: Lower back pain, Sciatica, Hypertensive urgency, Urinary incontinence, Failure of outpatient treatment Patient Disposition: Admitted As Inpatient Condition: Good Forms Stand Alone Forms: My [facility] Prescriptions Prescriptions: No Action atorvastatin 20 mg tablet 20 mg PO QAM escitalopram oxalate 10 mg tablet 10 mg PO QAM amlodipine 10 mg tablet 10 mg PO QAM lisinopril-hydrochlorothiazide 20-25 mg tablet 1 tab PO QAM sennosides [Senokot] 8.6 mg Tablet 17.2 mg PO QAM spironolactone 25 mg tablet 25 mg PO QAM meclizine 25 mg tablet 12.5 - 25 mg PO TID PRN (Reason: Dizziness) albuterol sulfate 90 mcg/actuation HFA aerosol inhaler 2 puff INHALATION Q6H PRN (Reason: COUGH/WHEEZING) tramadol 50 mg tablet 50 mg PO Q6H PRN (Reason: pain) ondansetron 4 mg tablet,disintegrating 4 mg PO Q8H PRN (Reason: nausea and vomiting) metoprolol succinate 50 mg tablet extended release 24 hr 50 mg PO QAM lisinopril 20 mg tablet 20 mg PO DAILY gabapentin 300 mg capsule See Rx Instructions .ROUTE .COMPLEX Rx Instructions: 600mg in the AM, 300mg midday, 600mg HS Referrals Referrals: Braden Zamora MD [Primary Care Provider] -
[2022-10-30 14:49] LABS: Basophils # (auto) 0.03 K/uL (0-0.2); Basophils % (auto) 0.3 %; Hematocrit (blood only) 45.5 % (42.0-52.0); Hemoglobin 15.2 g/dl (14.0-18.0); Immature Granulocytes # (auto) 0.16 K/uL (0.01-0.20); Immature Granulocytes % (auto) 1.5 %; Lymphocytes % (auto) 8.5 %; Mean Corpuscular Hemoglobin 30.8 pg (25.0-34.0); Mean Corpuscular Hgb Conc 33.4 g/dL (32.0-36.0); Mean Corpuscular Volume 92.3 fL (80.0-100.0); Monocytes # (auto) 0.26 K/uL (0.11-0.59); Monocytes % (auto) 2.5 %; Neutrophils # (auto) 9.22 K/uL (1.40-6.50); Neutrophils % (auto) 87.2 %; Platelet Count 270 K/uL (130-400); RDW Coefficient of Variation 14.8 % (11.5-14.5); RDW Standard Deviation 50.9 fL (36.4-46.3); Red Blood Count 4.93 M/uL (4.70-6.10); White Blood Count 10.57 K/ul (4.8-10.8)
[2022-10-30 14:53] LABS: Appearance Urine Clear (Clear); Bacteria Urine Automated Negative (Negative); Bilirubin Urine Negative (Negative); Blood Urine 2+ (Negative); Color Urine Yellow; Glucose Urine UA Negative (Negative); Ketones Urine Negative (Negative); Leukocyte Esterase Urine Negative (Negative); Nitrite Urine Negative (Negative); Protein Urine 2+ (Negative); Specific Gravity Urine 1.022 (1.000-1.030); Urobilinogen Urine Negative (Negative); WBC Urine Automated 0 /hpf (0-5)
[2022-10-30 15:14] LABS: Anion Gap 9 (3-11); BUN Creatinine Ratio 19.8 (10-20); Blood Urea Nitrogen 19 mg/dl (6-23); C Reactive Protein < 0.50 mg/dl (0-0.5); Calcium 9.2 mg/dl (8.6-10.3); Carbon Dioxide 27 mmol/L (21-32); Chloride 103 mmol/L (98-107); Creatinine Clr Calc Pharmacy 85.9 ml/min; Est GFR (African American) 93.8 ml/min; Est GFR (Non-African American) 80.9 ml/min; Glucose 166 mg/dl (70-99(Fasting)); Potassium 4.5 mmol/L (3.5-5.1); Sodium 139 mmol/L (136-145)
[2022-10-30] MEDS ORDERED: diazePAM 2 MG TABLET PO ONE (15:30)
[2022-10-30] MEDS ORDERED: METOPROLOL SUCC 50MG EXT REL TAB PO STA (15:41)
[2022-10-30] MEDS ORDERED: LISINOPRIL/HCTZ 20/25MG 1 TAB PO ONE (15:41)
--- NOTE | 2022-10-30 16:02 | History & Physical Report ---
Date of Service October 30, 2022 Assessment & Plan (1) Lumbar radiculopathy: Plan: Admit to [facility] with telemetry Patient presenting from home with reports of intractable low back pain with radiation into the left leg with associated left leg weakness. Patient also r eported urinary incontinence. Postvoid bladder scan obtained in ED demonstrating no urinary retention. Lumbar spine MRI from 10/24/2022 - Moderate to severe canal stenosis secondary to facet hypertrophic changes and diffuse annular disc bulge at L3-4 level. Right- sided moderate to severe neural foraminal encroachment noted at several levels. Multilevel facet hypertrophic changes noted. Pain control with scheduled Tylenol and low-dose Valium. Oxycodone and IV morphine for breakthrough pain. N.p.o. after midnight for possible surgical procedure tomorrow. Preop EKG and CXR reviewed. CXR showing cardiomegaly and mild pulmonary edema. Patient is saturating well on room air, denies shortness of breath. Will resume home diuretics. Obtain echo. EKG shows NSR. Spine Ortho consult -- Dr. Lopez notified by ED provider. Per ED provider, no indication to repeat lumbar spine MRI at this time. (2) Hypertensive urgency: Plan: Presenting BP 203/123 Likely due to pain/anxiety/missed a.m. doses of antihypertensives S/p labetalol 10 mg IV in the ED with improvement in BP Mild pulmonary edema noted on CXR -- ?? From hypertensive urgency. Will give Lasix 20 mg IV x 1 dose tonight. Obtaining echo as above. Give home doses of lisinopril/HCTZ, metoprolol, and amlodipine now. In addition to lisinopril/HCTZ, patient also on lisinopril 20 mg daily, will resume in the a.m. along with spironolactone. (3) Anxiety: Plan: Continue escitalopram (4) Hyperlipidemia: Plan: Continue statin DVT PROPHYLAXIS SCDs due to possible upcoming surgical procedure Patient seen in collaboration with Dr. Mckinney. I spent a total of 75 minutes coordinating, documenting, and providing care for this patient excluding time spent in the performance of separately billed services. This included personally reviewing all current laboratories and imaging studies, medication reconciliation, outpatient chart review, and discussion with specialists. History of Present Illness Chief Complaint: Back pain Primary Care Provider: Braden Zamora MD 67-year-old male with PMH dyslipidemia, HTN, prostate cancer s/p prostatectomy, anxiety, depression, and other problems listed below who presents to the ED for evaluation of intractable back pain. History obtained from the patient and review of outpatient PCP records. Patient reports having low back pain for the past 1 year. Patient has had several ED visits recently for low back pain. Patient last seen on 10/24/2022 and had lumbar spine MRI showing moderate to severe canal stenosis secondary to facet hypertrophic changes and diffuse annular disc bulge at L3-4 level and right-sided moderate to severe neural foraminal encroachment noted at several levels. Pain has been unrelieved with courses of steroids and narcotic use. Patient reports pain is located across both sides of his low back. Pain then radiates down to the left buttock into the right hip and down the lateral aspect of the left thigh into the left knee. Patient reports associated left leg weakness. He reports occasional burning sensation in both feet. He reports a few episodes of urinary incontinence over the past few months, last being this morning. Denies bowel dysfunction. No other recent illnesses, fevers, chills. Denies chest pain or shortness of breath. No lightheadedness, dizziness, diaphoresis, syncopal events. Denies abdominal pain, nausea, vomiting, diarrhea. In the ED, patient was found to be significant hypertensive with BP 203/123. Bladder scan was obtained for postvoid residual demonstrating no urinary retention. Patient received Tylenol, IV ketorolac, IV labetalol, IV morphine, IV Zofran. Allergies Allergy/AdvReac Type Severity Reaction Status Date / Time No Known Allergies Allergy Verified 10/24/22 22:16 Home Medications Medication Instructions Recorded Confirmed Type atorvastatin 20 mg tablet 20 mg PO QAM 10/10/19 10/30/22 History metoprolol succinate 50 mg 50 mg PO QAM 01/13/21 10/30/22 History tablet,extended release 24 hr gabapentin 300 mg capsule See Rx Instructions .Route .COMPLEX 06/13/21 10/30/22 History lisinopril 20 mg tablet 20 mg PO DAILY 06/13/21 10/30/22 History escitalopram oxalate 10 mg tablet 10 mg PO QAM 12/04/21 10/30/22 History amlodipine 10 mg tablet 10 mg PO QAM 01/25/22 10/30/22 History lisinopril 20 1 tab PO QAM 01/25/22 10/30/22 History mg-hydrochlorothiazide 25 mg tablet albuterol sulfate 90 mcg/actuation 2 puff inhalation Q6H PRN 10/24/22 10/30/22 History aerosol inhaler COUGH/WHEEZING meclizine 25 mg tablet 12.5 - 25 mg PO TID PRN Dizziness 10/24/22 10/30/22 History ondansetron 4 mg disintegrating 4 mg PO Q8H PRN nausea and vomiting 10/24/22 10/30/22 History tablet sennosides 8.6 mg tablet (Senokot) 17.2 mg PO QAM 10/24/22 10/30/22 History spironolactone 25 mg tablet 25 mg PO QAM 10/24/22 10/30/22 History tramadol 50 mg tablet 50 mg PO Q6H PRN pain 10/24/22 10/30/22 History Past Med/Surg History Medical History Anxiety Arthritis Cancer BCC (chest, neck, back) s/p excision Chronic back pain Chronic neck pain Chronic prostatitis Depression stable off meds Depression with suicidal ideation History of COVID-19 Dx 04/27/20 (report documented in [facility]) > symptoms at time of low grade fever, body aches, elevated BP > symptoms resolved/currently asymptomatic History of nocturia Hyperlipidemia Hypertension Lumbar radiculopathy Osteoarthritis Prostate cancer Surgical History History of arthroscopy Right knee History of carpal tunnel release R/L History of lithotripsy Right ESWL: 05/31/19: LMA#5 at [facility] [place] History of tonsillectomy History of total knee arthroplasty Left History of total right knee replacement (TKR) (~08/2021) [facility] Hx of prostatectomy due to cancer and no chemo/radiation needed Family History Father Diabetes Mother Hypertension Sister Cancer Social History Smoking Status: Never smoker Tobacco Type: Cigarettes Second Hand Exposure: No; Do You Dip or Chew Tobacco: No; Hx Alcohol Use: No Hx Substance Use: No Preferred Language: [place] Korean Communication Ability: Effective Visual Impairment: No Limitations Hearing Ability: Normal Placement Interviewer Required: No Beliefs That Will Affect Care: None marital status: Current Living Situation: Family Current Living Situation Comment: SON BARBARA LIVES WITH PT current occupational status: employed How many Children do You have: 3 Feels Safe at Home: Yes Assistive Devices: None Review of Systems Review of Systems: ROS per HPI, all other systems reviewed and negative Physical Exam Constitutional: WD/WN, vitals as above no acute distress Eyes: PERRL, conjunctivae normal, anicteric sclerae ENMT: external ear and nose normal, oropharynx normal Respiratory: normal respiratory effort, lungs clear to auscultation Cardiovascular: Rate/Rhythm: regular rate and regular rhythm Vessels: normal peripheral pulses Extremities: no edema Gastrointestinal (Abdomen): normal bowel sounds, soft, nontender, no hepatosplenomegaly Musculoskeletal: Spine: + straight leg raise positive (Left) Pedal pushes and pulls strong bilaterally, LLE strength 4/5, RLE strength 5/5 Skin: no rashes, warm and dry Neurologic: PERRL, EOMI, accommodation nl, no face palsy, no dysarthria Psychiatric: A+Ox3, euthymic affect Results & Data Results & Data Vital Signs (Past 12 Hours) Vital Signs Temp Pulse Pulse Resp BP BP Pulse Ox 10/30/22 15:26 91 H 20 165/119 H 96 10/30/22 14:14 37.0 C 123 H 98 H 203/123 H 98 O2 Del Method 10/30/22 15:26 Room Air 10/30/22 14:14 Room Air Laboratory Results Short CBC 10/30/22 Range/Units 14:00 WBC 10.57 (4.8-10.8) K/ul Hgb 15.2 (14.0-18.0) g/dl Hct 45.5 (42.0-52.0) % Plt Count 270 (130-400) K/uL BMP 10/30/22 14:00 Sodium 139 Potassium 4.5 Chloride 103 Carbon Dioxide 27 BUN 19 Creatinine 0.96 Glucose 166 H Calcium 9.2 Urine 10/30/22 Range/Units 14:35 Urine Color Yellow Urine Appearance Clear (Clear) Urine pH 6.0 (4.5-7.5) Ur Specific [place] 1.022 (1.000-1.030) Urine Protein 2+ H (Negative) Urine Glucose (UA) Negative (Negative) Code Status & VTE Plan Code Status Patient is a full code as per my discussion with him. VTE Prophylaxis Plan VTE Prophylaxis will be ordered: Yes Supervising Physician Co-Signing Physician Notes Patient was seen and examined independently at bedside. Chart reviewed. Case discussed with Sirena SAUCEDO and agree with the documentation above with regards to HPI, PE and A/P except as noted below. In summary, this is a 67 year old male with chronic back pain for 1 year who presented to the ED with acute on chronic back pain with left lumbar radiculopathy and hypertensive urgency. Had multiple ED visits for back pain and was seeing his OP provider for consideration of back surgery. No cauda equina symptoms. During my exam, patient was lying on right lateral position, some discomfort but not in acute distress, AAO, chest clear, heart sounds normal, abd benign, no edema, anxious at baseline. CT and recent MRI reviewed. ED physician already spoke with Dr Lopez who will evaluate the patient in am. Agree with pain management. HTN urgency due to pain and missing his morning meds- already improved by the time I saw him. Continue home BP meds. Further management per ortho but will keep npo overnight in case plan for surgery. Rest as per the note above.
--- NOTE | 2022-10-30 16:25 | XRay Report ---
XR chest 1V portable CLINICAL HISTORY: pre op TECHNIQUE: Single frontal radiograph of the chest was obtained. Comparison: Comparison is made to chest radiograph 08/05/2022 FINDINGS: No lines and tubes are seen. Cardiomegaly is noted. Prominence and cephalization of the vasculature i s seen. No evidence of pleural effusion or pneumothorax. IMPRESSION: Cardiomegaly and mild pulmonary edema. ACT 112: Negative or not required by law. Electronically signed by: Ken Álvarez M.D. 10/30/2022 4:24 PM
[2022-10-30] MEDS: amLODIPine BESYLATE 5 MG TAB PO SCH (18:11)
[2022-10-30] MEDS: MoRPHine SULFATE 4 MG/ML 1 ML CARP\\VIAL IV PRN ×2 (18:29→23:01)
[2022-10-30] MEDS ORDERED: FUROSEMIDE INJ 20 MG/2 ML VIAL IV ONE (19:15)
[2022-10-30] MEDS: oxyCODONE HCL IR 5 MG TAB (IMMEDIATE RELEASE) PO PRN (20:15)
[2022-10-30] MEDS: DOCUSATE SODIUM 100 MG CAP PO SCH (21:08)
[2022-10-30] MEDS: ACETAMINOPHEN 500 MG TAB PO SCH (21:09)
[2022-10-30] MEDS: GABAPENTIN 300 MG CAP PO SCH (21:09)
[2022-10-30] MEDS: diazePAM 2 MG TABLET PO SCH (23:01)
[2022-10-31] MEDS: ACETAMINOPHEN 500 MG TAB PO SCH ×3 (06:21→22:12)
--- NOTE | 2022-10-31 06:36 | Electrocardiogram Report ---
Test Reason : Blood Pressure : / mmHG Vent. Rate : 099 BPM Atrial Rate : 099 BPM P-R Int : 166 ms QRS Dur : 082 ms QT Int : 348 ms P-R-T Axes : 062 017 053 degrees QTc Int : 446 ms Normal sinus rhythm Normal ECG When compared with ECG of 27-SEP-2022 12:33, Premature ventricular complexes are no longer Present Confirmed by Fer Gonzalez ([id number]) on 10/31/2022 6:36:24 AM Referred By: REFERRED SELF Confirmed By:Fer Gonzalez
[2022-10-31] MEDS: diazePAM 2 MG TABLET PO SCH ×3 (07:13→21:56)
[2022-10-31] MEDS: MoRPHine SULFATE 4 MG/ML 1 ML CARP\\VIAL IV PRN ×3 (07:45→23:46)
[2022-10-31 09:26] LABS: Hematocrit (blood only) 44.1 % (42.0-52.0); Hemoglobin 14.6 g/dl (14.0-18.0); Mean Corpuscular Hemoglobin 30.7 pg (25.0-34.0); Mean Corpuscular Hgb Conc 33.1 g/dL (32.0-36.0); Mean Corpuscular Volume 92.8 fL (80.0-100.0); Mean Platelet Volume 8.9 fL (9.4-12.4); Platelet Count 245 K/uL (130-400); RDW Coefficient of Variation 15.1 % (11.5-14.5); RDW Standard Deviation 51.6 fL (36.4-46.3); Red Blood Count 4.75 M/uL (4.70-6.10); White Blood Count 9.64 K/ul (4.8-10.8)
[2022-10-31 09:46] LABS: BUN Creatinine Ratio 24.2 (10-20); Calcium 9.3 mg/dl (8.6-10.3); Creatinine Clr Calc Pharmacy 90.4 ml/min; Est GFR (Non-African American) 86.3 ml/min; Potassium 3.7 mmol/L (3.5-5.1)
[2022-10-31] MEDS: lisinopril 20 MG TAB PO SCH (10:35)
[2022-10-31] MEDS: SPIRONOLACTONE 25 MG TAB PO SCH (10:35)
[2022-10-31] MEDS: DOCUSATE SODIUM 100 MG CAP PO SCH ×2 (10:35→22:13)
[2022-10-31] MEDS: METOPROLOL SUCC 50MG EXT REL TAB PO SCH (10:36)
[2022-10-31] MEDS: ATORVASTATIN 20 MG TAB PO SCH (10:36)
[2022-10-31] MEDS: ESCITALOPRAM OXALATE 10 MG TAB PO SCH (10:36)
[2022-10-31] MEDS: amLODIPine BESYLATE 5 MG TAB PO SCH (10:36)
[2022-10-31] MEDS: LISINOPRIL/HCTZ 20/25MG 1 TAB PO SCH (10:36)
[2022-10-31] MEDS: GABAPENTIN 300 MG CAP PO SCH ×3 (10:36→21:55)
[2022-10-31] MEDS: POLYETHYLENE (MIRALAX) 17 GM PACK PO SCH (10:37)
[2022-10-31] MEDS: oxyCODONE HCL IR 5 MG TAB (IMMEDIATE RELEASE) PO PRN ×2 (12:54→21:55)
--- NOTE | 2022-10-31 12:58 | Hospitalist Progress Note ---
Date of Service October 31, 2022 Assessment & Plan (1) Lumbar radiculopathy: Plan: Low back pain has been going on for about 2 to 3 years. Patient presenting from home with reports of intractable low back pain with radiation into the left leg with associated left leg weakness. Patient also reported urinary incontinence. Postvoid bladder scan obtained in ED demonstrating no urinary retention. Lumbar spine MRI from 10/24/2022 - Moderate to severe canal stenosis secondary to facet hypertrophic changes and diffuse annular disc bulge at L3-4 level. Right-sided moderate to severe neural foraminal encroachment noted at several levels. Multilevel facet hypertrophic ch anges noted. Pain control with scheduled Tylenol and low-dose Valium. Oxycodone and IV morphine for breakthrough pain. Preop EKG and CXR reviewed. CXR showing cardiomegaly and mild pulmonary edema. Patient is saturating well on room air, denies shortness of breath. Will resume home diuretics. Obtain echo. EKG shows NSR. Spine Ortho consult -- Dr. Lopez notified by ED provider. Per ED provider, no indication to repeat lumbar spine MRI at this time. Appreciate orthospine input and recommendation for lumbar decompression fusion tomorrow Patient remained stable and the blood pressure on the upper side but seems to be improving We will get PT OT evaluation (2) Hypertensive urgency: Plan: Presenting BP 203/123 Likely due to pain/anxiety/missed a.m. doses of antihypertensives S/p labetalol 10 mg IV in the ED with improvement in BP Mild pulmonary edema noted on CXR -- ?? From hypertensive urgency. Will give Lasix 20 mg IV x 1 dose tonight. Obtaining echo as above. Give home doses of lisinopril/HCTZ, metoprolol, and amlodipine now. In addition to lisinopril/HCTZ, patient also on lisinopril 20 mg daily, will resume in the a.m. along with spironolactone. Has been getting his usual blood pressure medications BP remains on the higher side at 156/90 and expected to improve (3) Anxiety: Plan: Continue escitalopram (4) Hyperlipidemia: Plan: Continue statin DVT PROPHYLAXIS SCDs due to possible upcoming surgical procedure Patient seen in collaboration with Dr. Mckinney. Admission and Anticipated Discharge Date Admission Date: October 30, 2022 Subjective 10/31/2022 The patient was seen and examined in medical telemetry unit He was admitted with intractable back pain with radiculopathy and high blood pressure secondary Denies any problem with urinary and/or bowel habit He will go for lumbar decompression fusion tomorrow by Dr. Lopez Review of Systems Review of Systems: All systems reviewed and are unremarkable except as noted below Musculoskeletal: Low back pain with radiation to the left buttock and left anterior thigh Physical Exam Physical Exam: Lying in bed with acute distress due to back pain Constitutional: well developed, well nourished, + ill appearing and average body habitus Eyes: PERRL, conjunctivae normal, anicteric sclerae ENMT: external ear and nose normal, oropharynx normal Neck: trachea midline, no thyromegaly Respiratory: no respiratory distress Auscultation: lungs clear to auscultation bilaterally Cardiovascular: Rate/Rhythm: regular rate and regular rhythm; not tachycardic Heart Sounds: normal S1 and normal S2; no murmur Extremities: no edema Gastrointestinal (Abdomen): Inspection/Auscultation: normal bowel sounds; abdomen not distended Percussion/Palpation: abdomen soft; abdomen nontender Musculoskeletal: Low back pain with tenderness to the lower lumbar area. Neurologic: Alert, awake and oriented x3. Impaired sensation left anterior thigh otherwise unremarkable Psychiatric: A+Ox3, euthymic affect Lymphatic: no cervical or axillary lymphadenopathy Results & Data Results & Data Vital Signs (Past 12 Hours) Vital Signs Temp Pulse Resp BP BP Pulse Ox O2 Del Method 10/31/22 07:28 36.3 C L 76 18 156/90 H 97 Room Air 10/31/22 03:45 36.5 C 80 20 140/77 97 Room Air Laboratory Results Short CBC 10/30/22 10/31/22 Range/Units 14:00 09:03 WBC 10.57 9.64 (4.8-10.8) K/ul Hgb 15.2 14.6 (14.0-18.0) g/dl Hct 45.5 44.1 (42.0-52.0) % Plt Count 270 245 (130-400) K/uL BMP 10/30/22 10/31/22 14:00 09:03 Sodium 139 140 Potassium 4.5 3.7 Chloride 103 101 Carbon Dioxide 27 32 BUN 19 22 Creatinine 0.96 0.91 Glucose 166 H 92 Calcium 9.2 9.3 Urine 10/30/22 Range/Units 14:35 Urine Color Yellow Urine Appearance Clear (Clear) Urine pH 6.0 (4.5-7.5) Ur Specific [place] 1.022 (1.000-1.030) Urine Protein 2+ H (Negative) Urine Glucose (UA) Negative (Negative) Medications Administered Current Inpatient Medications Acetaminophen (Acetaminophen 500 Mg Tab) 1,000 mg PO Q8 [facility] Stop: 11/29/22 21:59 Last Admin: 10/31/22 06:21 Dose: 1,000 mg Amlodipine Besylate (A[facility]odip[facility] Besylate 5 Mg Tab) [facility] [place] [facility]: 11/29/22 17:48 Last Admin: 10/31/22 10:36 Dose: 10 mg Atorvastatin Calcium (Atorvastatin 20 Mg Tab) 20 mg PO QAM [facility] Stop: 11/30/22 08:59 Last Admin: 10/31/22 10:36 Dose: 20 mg Diazepam (Diazepam 2 Mg Tablet) 2 mg PO Q8H [facility] Stop: 11/29/22 22:59 Last Admin: 10/31/22 07:13 Dose: 2 mg Docusate Sodium (Docusate Sodium 100 Mg Cap) 100 mg PO BID [facility] Stop: 11/29/22 20:59 Last Admin: 10/31/22 10:35 Dose: 100 mg Escitalopram Oxalate (Escitalopram Oxalate 10 Mg Tab) [facility] [place] Stop: 11/30/22 08:59 Last Admin: 10/31/22 10:36 Dose: 10 mg Gabapentin (Gabapentin 300 Mg Cap) 600 mg PO AMHS [facility] Stop: 11/29/22 20:59 Last Admin: 10/31/22 10:36 Dose: 600 mg Gabapentin (Gabapentin 300 Mg Cap) 300 mg PO DAILY@1400 [facility] Stop: 11/30/22 13:59 Lisinopril/HCTZ (Lisinopril/Hctz 20/25mg 1 Tab) [facility] [place] Stop: 11/30/22 08:59 Last Admin: 10/31/22 10:36 Dose: 1 tab Lisinopril (Lisinopril 20 Mg Tab) 20 mg PO DAILY [facility] Stop: 11/30/22 08:59 Last Admin: 10/31/22 10:35 Dose: 20 mg Metoprolol Succinate (Metoprolol Succ 50mg Ext Rel Tab) [facility] [place] Stop: 11/30/22 08:59 Last Admin: 10/31/22 10:36 Dose: 50 mg Morphine Sulfate (Morphine Sulfate 4 Mg/Ml 1 Ml Carp\Vial) 4 mg IV Q6H PRN PRN Reason: Pain (6,7,8,9,10) Stop: 11/13/22 17:48 Last Admin: 10/31/22 07:45 Dose: 4 mg Oxycodone HCl (Oxycodone Hcl Ir 5 Mg Tab (Immediate Release)) 5 mg PO Q4H PRN PRN Reason: MODERATE Pain (4,5,6) & Pre PT Stop: 11/13/22 17:48 Last Admin: 10/30/22 20:15 Dose: 5 mg Polyethylene Glycol (Polyethylene (Miralax) 17 Gm Pack) 17 gm PO DAILY [facility] Stop: 11/30/22 08:59 Last Admin: 10/31/22 10:37 Dose: Not Given Spironolactone (Spironolactone 25 Mg Tab) 25 mg PO QAM [facility] Stop: 11/30/22 08:59 Last Admin: 10/31/22 10:35 Dose: 25 mg
--- NOTE | 2022-10-31 13:39 | Orthopedic Consultation ---
Date of Consultation October 31, 2022 Assessment & Plan (1) Neurogenic claudication due to lumbar spinal stenosis: MRI lumbar spine does demonstrate significant multilevel spondylosis with scoliosis. Most impressively is severe L3-L4 neuroforaminal disease on the left. This is concordant with his pain pattern. This point the patient is struggling with neurologic decline and significant pain. He would like to consider surgical intervention. It would be reasonable to do this on an urgent basis particularly in light of his progressive neuro deficit and requirement for narcotic medications. It would require a lumbar decompression and fusion L3-L4. He requires aggressive facetectomy further and putting at risk for instability and exacerbation of his curvature. Subsequently requires fusion. Risk benefits pros cons alternatives were in detail. At this time we will make him n.p.o. after midnight plan for surgery tomorrow. History of Present Illness Reason for Consultation: Left leg pain with weakness Attending Physician: Karol Banks MD History of Present Illness This is a 59-year-old male has been in and out of the emergency room for the past 6 weeks secondary to severe left leg pain and weakness. Yesterday he was again returned with significant discomfort and hypertension. Subsequently admitted. This morning he describes pain that involves the left buttock rating down the left anterior thigh to his knee. Markedly exacerbated with any prolonged standing or walking. Its been progressive in nature. He notes strength deficits to his left quadricep as well. The right lower extremity is asymptomatic. Allergies Allergy/AdvReac Type Severity Reaction Status Date / Time No Known Allergies Allergy Verified 10/24/22 22:16 Home Medications Medication Instructions Recorded Confirmed Type atorvastatin 20 mg tablet 20 mg PO QAM 10/10/19 10/30/22 History metoprolol succinate 50 mg 50 mg PO QAM 01/13/21 10/30/22 History tablet,extended release 24 hr gabapentin 300 mg capsule See Rx Instructions .Route .COMPLEX 06/13/21 10/30/22 History lisinopril 20 mg tablet 20 mg PO DAILY 06/13/21 10/30/22 History escitalopram oxalate 10 mg tablet 10 mg PO QAM 12/04/21 10/30/22 History amlodipine 10 mg tablet 10 mg PO QAM 01/25/22 10/30/22 History lisinopril 20 1 tab PO QAM 01/25/22 10/30/22 History mg-hydrochlorothiazide 25 mg tablet albuterol sulfate 90 mcg/actuation 2 puff inhalation Q6H PRN 10/24/22 10/30/22 History aerosol inhaler COUGH/WHEEZING meclizine 25 mg tablet 12.5 - 25 mg PO TID PRN Dizziness 10/24/22 10/30/22 History ondansetron 4 mg disintegrating 4 mg PO Q8H PRN nausea and vomiting 10/24/22 10/30/22 History tablet sennosides 8.6 mg tablet (Senokot) 17.2 mg PO QAM 10/24/22 10/30/22 History spironolactone 25 mg tablet 25 mg PO QAM 10/24/22 10/30/22 History tramadol 50 mg tablet 50 mg PO Q6H PRN pain 10/24/22 10/30/22 History Patient History Medical History Anxiety Arthritis Cancer BCC (chest, neck, back) s/p excision Chronic back pain Chronic neck pain Chronic prostatitis Depression stable off meds Depression with suicidal ideation History of COVID-19 Dx 04/27/20 (report documented in [facility]) > symptoms at time of low grade fever, body aches, elevated BP > symptoms resolved/currently asymptomatic History of nocturia Hyperlipidemia Hypertension Lumbar radiculopathy Osteoarthritis Prostate cancer Surgical History History of arthroscopy Right knee History of carpal tunnel release R/L History of lithotripsy Right ESWL: 05/31/19: [place]MA[place]5 [place] [facility] [place] History of tonsillectomy History of total knee arthroplasty Left History of total right knee replacement (TKR) (~08/2021) [facility] Hx of prostatectomy due to cancer and no chemo/radiation needed Family History Father Diabetes Mother Hypertension Sister Cancer Social History Smoking Status: Never smoker Tobacco Type: Cigarettes Second Hand Exposure: No; Do You Dip or Chew Tobacco: No; Hx Alcohol Use: No Hx Substance Use: No Preferred Language: Slovenian Communication Ability: Effective Visual Impairment: No Limitations Hearing Ability: Normal Night Manager Required: No Beliefs That Will Affect Care: None marital status: Current Living Situation: Family Current Living Situation Comment: Lives @ home with son current occupational status: employed How many Children do You have: 3 Feels Safe at Home: Yes Safety Concerns: Feels Safe At This Time Assistive Devices: Glasses Physical Exam Physical Exam: On exam he is most comfortable sitting up in bed. Does exhibit a 4/5 left quadriceps to 5 5 on the right. Plantarflexion dorsiflexion are symmetric 5/5 intact. There is no gross sensory deficits. Deep tendon reflexes diminished. Results & Data Vital Signs (Past 12 Hours) Vital Signs Temp Pulse Resp BP BP Pulse Ox O2 Del Method 10/31/22 07:28 36.3 C L 76 18 156/90 H 97 Room Air 10/31/22 03:45 36.5 C 80 20 140/77 97 Room Air
[2022-11-01] MEDS: ACETAMINOPHEN 500 MG TAB PO SCH (05:39)
[2022-11-01] MEDS: MoRPHine SULFATE 4 MG/ML 1 ML CARP\\VIAL IV PRN (05:46)
[2022-11-01] MEDS: diazePAM 2 MG TABLET PO SCH ×2 (07:00→16:21)
[2022-11-01 07:07] LABS: Basophils # (auto) 0.08 K/uL (0-0.2); Eosinophils # (auto) 0.22 K/uL (0-0.50); Eosinophils % (auto) 2.7 %; Hematocrit (blood only) 43.9 % (42.0-52.0); Hemoglobin 14.5 g/dl (14.0-18.0); Immature Granulocytes # (auto) 0.08 K/uL (0.01-0.20); Lymphocytes # (auto) 2.64 K/uL (1.2-3.4); Lymphocytes % (auto) 32.3 %; Mean Corpuscular Hemoglobin 30.7 pg (25.0-34.0); Mean Corpuscular Volume 92.8 fL (80.0-100.0); Mean Platelet Volume 8.9 fL (9.4-12.4); Monocytes # (auto) 0.86 K/uL (0.11-0.59); Monocytes % (auto) 10.5 %; Neutrophils # (auto) 4.29 K/uL (1.40-6.50); Neutrophils % (auto) 52.5 %; Platelet Count 247 K/uL (130-400); RDW Coefficient of Variation 15.1 % (11.5-14.5); RDW Standard Deviation 51.8 fL (36.4-46.3); Red Blood Count 4.73 M/uL (4.70-6.10); White Blood Count 8.17 K/ul (4.8-10.8)
[2022-11-01 07:27] LABS: BUN Creatinine Ratio 27.7 (10-20); Calcium 9.1 mg/dl (8.6-10.3); Creatinine Clr Calc Pharmacy 86.7 ml/min; Est GFR (African American) 96.2 ml/min; Potassium 4.1 mmol/L (3.5-5.1)
[2022-11-01] MEDS ORDERED: ONDANSETRON INJ 2 MG/ML 2 ML VIAL IV PRN ×2 (09:27→13:30)
[2022-11-01] MEDS ORDERED: ePHEDrine sulfate 50 MG/ML AMP IV PRN (09:27)
[2022-11-01] MEDS ORDERED: PROMETHAZINE HCL 6.25 MG in SODIUM CHLORIDE 0.9% 50 ML IV PRN (09:27)
[2022-11-01] MEDS ORDERED: ATROPINE SULFATE 0.1 MG/ML 10ML SYR IV PRN (09:27)
--- NOTE | 2022-11-01 09:27 | Anesthesiology Consultation ---
Date of Service November 01, 2022 Assessment & Plan Chart Review Chart Review: Acceptable Risk for Surgery and Patient NOT seen in Pre Admission Testing Consults Requested none ASA ASA2 Proposed Anesthesia Anesthesia Type: General Risk / Benefits Reviewed With: PT / POA / Parent / Guardian, Accepts Plan and Informed Consent Obtained History Surgery Operation Date: 11/01/22 09:35 Proposed Procedures p L3-L4 Decompression and Fusion, Spinal Cord Monitoring - Micah Lopez DO Height/Weight Height: 5 ft 11 in Weight: 90.8 kg Allergies Allergy/AdvReac Type Severity Reaction Status Date / Time No Known Allergies Allergy Verified 10/24/22 22:16 Medications Home Medications Medication Instructions Recorded Confirmed Last Taken atorvastatin 20 mg tablet 20 mg PO QAM 10/10/19 10/30/22 10/24/22 metoprolol succinate 50 mg 50 mg PO QAM 01/13/21 10/30/22 10/24/22 tablet,extended release 24 hr gabapentin 300 mg capsule See Rx Instructions .Route .COMPLEX 06/13/21 10/30/22 10/24/22 15:00 lisinopril 20 mg tablet 20 mg PO DAILY 06/13/21 10/30/22 10/21/22 escitalopram oxalate 10 mg tablet 10 mg PO QAM 12/04/21 10/30/22 10/24/22 amlodipine 10 mg tablet 10 mg PO QAM 01/25/22 10/30/22 10/24/22 lisinopril 20 1 tab PO QAM 01/25/22 10/30/22 10/24/22 mg-hydrochlorothiazide 25 mg tablet albuterol sulfate 90 mcg/actuation 2 puff inhalation Q6H PRN 10/24/22 10/30/22 Unknown aerosol inhaler COUGH/WHEEZING meclizine 25 mg tablet 12.5 - 25 mg PO TID PRN Dizziness 10/24/22 10/30/22 Unknown ondansetron 4 mg disintegrating 4 mg PO Q8H PRN nausea and vomiting 10/24/22 10/30/22 Unknown tablet sennosides 8.6 mg tablet (Senokot) 17.2 mg PO QAM 10/24/22 10/30/22 10/24/22 spironolactone 25 mg tablet 25 mg PO QAM 10/24/22 10/30/22 10/24/22 tramadol 50 mg tablet 50 mg PO Q6H PRN pain 10/24/22 10/30/22 Unknown Active Medications Generic Name Dose Route Start Last Admin Trade Name Katelyn PRN Reason Stop Dose Admin Acetaminophen 1,000 mg 10/30/22 22:00 11/01/22 05:39 Acetaminophen 500 Mg Tab PO 11/29/22 21:59 1,000 mg Q8 TISHA Administration Amlodipine Besylate 10 mg 10/30/22 17:49 10/31/22 10:36 Amlodipine Besylate 5 Mg Tab PO 11/29/22 17:48 10 mg QAM TISHA Administration Atorvastatin Calcium 20 mg 10/31/22 09:00 10/31/22 10:36 Atorvastatin 20 Mg Tab PO 11/30/22 08:59 20 mg QAM TISHA Administration Diazepam 2 mg 10/30/22 23:00 11/01/22 07:00 Diazepam 2 Mg Tablet PO 11/29/22 22:59 2 mg Q8H TISHA Administration Docusate Sodium 100 mg 10/30/22 21:00 10/31/22 22:13 Docusate Sodium 100 Mg Cap PO 11/29/22 20:59 100 mg BID TISHA Administration Escitalopram Oxalate 10 mg 10/31/22 09:00 10/31/22 10:36 Escitalopram Oxalate 10 Mg Tab PO 11/30/22 08:59 10 mg QAM TISHA Administration Gabapentin 600 mg 10/30/22 21:00 10/31/22 21:55 Gabapentin 300 Mg Cap PO 11/29/22 20:59 600 mg AMHS TISHA Administration Gabapentin 300 mg 10/31/22 14:00 10/31/22 14:24 Gabapentin 300 Mg Cap PO 11/30/22 13:59 300 mg DAILY@1400 TISHA Administration Lisinopril/HCTZ 1 tab 10/31/22 09:00 10/31/22 10:36 Lisinopril/Hctz 20/25mg 1 Tab PO 11/30/22 08:59 1 tab QAM TISHA Administration Lisinopril 20 mg 10/31/22 09:00 10/31/22 10:35 Lisinopril 20 Mg Tab PO 11/30/22 08:59 20 mg DAILY TISHA Administration Metoprolol Succinate 50 mg 10/31/22 09:00 10/31/22 10:36 Metoprolol Succ 50mg Ext Rel Tab PO 11/30/22 08:59 50 mg QAM TISHA Administration Morphine Sulfate 4 mg 10/30/22 17:49 11/01/22 05:46 Morphine Sulfate 4 Mg/Ml 1 Ml Carp\Vial IV 11/13/22 17:48 4 mg Q6H PRN Administration Pain (6,7,8,9,10) Oxycodone HCl 5 mg 10/30/22 17:49 10/31/22 21:55 Oxycodone Hcl Ir 5 Mg Tab (Immediate Release) PO 11/13/22 17:48 5 mg Q4H PRN Administration MODERATE Pain (4,5,6) & Pre PT Polyethylene Glycol 17 gm 10/31/22 09:00 10/31/22 10:37 Polyethylene (Miralax) 17 Gm Pack PO 11/30/22 08:59 Not Given DAILY TISHA Spironolactone 25 mg 10/31/22 09:00 10/31/22 10:35 Spironolactone 25 Mg Tab PO 11/30/22 08:59 25 mg QAM TISHA Administration NPO Date Last Intake of Fluids: 10/31/22 Time Last Intake of Fluids: 22:30 Date Last Intake of Solids: 10/31/22 Time Last Intake of Solids: 22:30 Past Medical History Medical History Anxiety Arthritis Cancer BCC (chest, neck, back) s/p excision Chronic back pain Chronic neck pain Chronic prostatitis Depression stable off meds Depression with suicidal ideation History of COVID-19 Dx 04/27/20 (report documented in [facility]) > symptoms at time of low grade fever, body aches, elevated BP > symptoms resolved/currently asymptomatic History of nocturia Hyperlipidemia Hypertension Lumbar radiculopathy Osteoarthritis Prostate cancer Exercise / Class Metabolic Activity II 4-5 Yardwork/Stairs/Walk up hill Past Family History Family History Father Diabetes Mother Hypertension Sister Cancer Past Surgical History Surgical History History of arthroscopy Right knee History of carpal tunnel release R/L History of lithotripsy Right ESWL: 05/31/19: LMA#5 at [facility] [place] History of tonsillectomy History of total knee arthroplasty Left History of total right knee replacement (TKR) (~08/2021) [facility] Hx of prostatectomy due to cancer and no chemo/radiation needed Past Anesthesia History No Hx of Anesthesia Complications and No Family Hx of Anesthesia Complications History of PONV No Hx of PONV and No Hx of Motion Sickness Social History Smoking Status: Never smoker Do You Dip or Chew Tobacco: No Hx Alcohol Use: No Hx Substance Use: No substance use type: does not use Physical Exam Vital Signs Last Vital Signs Temp 36.7 C 11/01/22 08:47 Pulse 74 11/01/22 08:47 Resp 20 11/01/22 08:47 BP 124/103 H 11/01/22 08:47 Pulse Ox 97 11/01/22 08:47 O2 Del Method Room Air 11/01/22 08:47 ENMT Mouth: no dentition abnormality Thyromental Distance: > or= 3.5 Finger Breadths Mallampati Class: II Neck normal visual inspection Respiratory normal respiratory effort Auscultation: lungs clear to auscultation bilaterally Cardiovascular Rate/Rhythm: regular rate and regular rhythm Psychiatric Orientation: alert Testing Laboratory Results 11/01/22 06:41 11/01/22 06:41 Urine Color Yellow 10/30/22 14:35 Urine Appearance Clear (Clear) 10/30/22 14:35 Urine pH 6.0 (4.5-7.5) 10/30/22 14:35 Ur Specific [place] 1.022 (1.000-1.030) 10/30/22 14:35 Urine Protein 2+ (Negative) H 10/30/22 14:35 Urine Glucose (UA) Negative (Negative) 10/30/22 14:35 Urine Ketones Negative (Negative) 10/30/22 14:35 Urine Nitrite Negative (Negative) 10/30/22 14:35 Ur Leukocyte Esterase Negative (Negative) 10/30/22 14:35 Urine WBC (Auto) 0 /hpf (0-5) 10/30/22 14:35 Urine RBC (Auto) 10-30 /hpf (0-4) H 10/30/22 14:35 U Hyaline Cast (Auto) 1-5 /lpf (0-5) 10/30/22 14:35 U Epithel Cells (Auto) 5-10 /lpf (0-5) H 10/30/22 14:35 Urine Bacteria (Auto) Negative (Negative) 10/30/22 14:35 Blood Type O Positive 11/01/22 06:41 Antibody Screen NEGATIVE 11/01/22 06:41
--- NOTE | 2022-11-01 09:38 | History & Physical Bridge Note ---
Date of Service November 01, 2022 History & Physical Bridge Note I have examined the patient, reviewed the History & Physical and in the interval since the performance of the History & Physical I have noted the following changes of clinical significance: Patient continues to demonstrate severe left leg radiculopathy and evidence of progressive motor deficit. In order to prevent permanent nerve damage recommending emergent decompression fusion L3-L4.
[2022-11-01] MEDS ORDERED: ceFAZolin 330 MG/ML 1 GM VIAL ONE (09:46)
[2022-11-01] MEDS ORDERED: BUPIVACAINE/EPINEPHRINE 0.25% 1:200,000 30 ML VIAL ONE (09:46)
[2022-11-01] MEDS ORDERED: ceFAZolin 2000MG 2,000 MG/15 ML SYR IV ONE (09:51)
[2022-11-01] MEDS ORDERED: ceFAZolin 2,000 MG/15 ML IV PUSH IV ONE (09:51)
[2022-11-01] MEDS ORDERED: fentaNYL citrate PF 100 MCG/2 ML VIAL ONE (09:55)
[2022-11-01] MEDS ORDERED: ROCURONIUM BROMIDE 10 MG/ML 5 ML VIAL IV ONE ×4 (09:55→10:52)
[2022-11-01] MEDS ORDERED: PROPOFOL IV EMULSION 10 MG/ML 20 ML VIAL IV ONE (09:55)
[2022-11-01] MEDS ORDERED: FLOSEAL HEMOSTATIC MATRIX 10ML TOP ONE (10:46)
[2022-11-01] MEDS ORDERED: ePHEDrine sulfate 50 MG/ML SYR ONE (10:52)
[2022-11-01] MEDS ORDERED: PHENYLEPHRINE 100MCG/ML 5ML SYR ONE (10:52)
[2022-11-01] MEDS ORDERED: ONDANSETRON INJ 2 MG/ML 2 ML VIAL ONE (10:53)
[2022-11-01] MEDS ORDERED: LIDOCAINE 2% 2 ML VIAL/AMP(20MG/ML) INFIL ONE (10:53)
[2022-11-01] MEDS ORDERED: DEXAMETHASONE SOD INJ 4 MG/ML VIAL ONE (10:53)
[2022-11-01] MEDS ORDERED: NEOSTIGMINE METHYLSULFATE 1 MG/ML 10ML VIAL ONE (11:36)
[2022-11-01] MEDS ORDERED: GLYCOPYRROLATE 0.2 MG/ML VIAL ONE (11:36)
--- NOTE | 2022-11-01 11:43 | Operative Report ---
Post Operative Report Pre & Post Diagnosis Operation Date: 11/01/22 09:35 Pre-Op Diagnosis: Lumbar spinal stenosis with radiculopathy L3-L4 foraminal disc herniation Post-Op Diagnosis: Same I identified the patient and participated in the time-out.: Yes Procedure Operation Date: 11/01/22 09:35 Actual Procedures #1 lumbar decompression bilaterally facetectomies and foraminotomies L2-L3 L3- L4. #2 posterior spinal fusion L3-L4. #3 placement posterior instrumentation L3-L4. #4 interbody fusion L3-L4. #5 placement of Spira 15 x 26 mm cage at L3- L4. #6 placement locally harvested morselized autograft in the posterior gutters. #7 placement of I factor bone of the test in the interbody space and posterior gutters. Surgeon Micah Lopez, Clay Dry Press Helper Fay Gregory Estimated Blood Loss 200 Findings Consistent with Post-Op Diagnosis Specimens None Indications This is a 59-year-old male that presents to the emergency room with severe left leg pain, weakness and hypertensive crisis. Demonstrates progressive neuro deficit and L3 pattern consistent with foraminal stenosis extraforaminal herniation L3-L4 on the left. Because of his clinical presentation progressive neurologic duration recommended emergent decompression fusion to prevent permanent nerve damage. Description of Procedure Patient was met with identified informed consent obtained. Patient was taken to the operative suite underwent a patient placed in a prone position the [place] table top Derick frame. All bony promises well-padded eyes inspected to ensure no external pressure placed upon the. This point lumbar spine was prepped and draped in a sterile fashion. Sharp dissection with the assistance of Bovie cautery to form down to and exposing the lamina transverse processes of L3-L4 bilaterally. From caudal to cephalad fashion complete laminectomy of L3 partial laminectomy L2 was performed including bilateral facetectomies and foraminotomies addressing severe spinal stenosis as well as extra foraminal foraminal disc herniation L3-L4 on the left. After complete decompression pedicle screws were placed in L3-L4 bilaterally with assistance of fluoroscopy and properly sized rupinder placed. By way of a trans foraminal approach on the left complete discectomy performed endplates curetted to subcortical bleeding bone and a 15 x 26 mm Spira cage with I factor tapped the position. The rods were then locked in final position bilaterally. The transverse processes of L3-L4 burred to subcortical any bone. I factor one of the test and locally harvested morselized graft was placed in the posterior gutters. 15 round LAZ drain inserted. The incision was then closed with 1 Vicryl in the fascia 2-0 Vicryl subcutaneously and 4 Monocryl for final skin closure. Steri-Strips sterile dressing placed. Patient awakened taken to PACU stable condition. Please note spinal cord monitoring was utilized at the procedure no changes noted. Lastly Fay Gregory was present at the entire surgeon while the patient positioning complex portions of the surgery and final skin closure. I attest to the content of the Intraoperative Record and any orders documented therein. Any exceptions are noted below.
[2022-11-01] MEDS: ESCITALOPRAM OXALATE 10 MG TAB PO SCH (12:00)
[2022-11-01] MEDS: GABAPENTIN 300 MG CAP PO SCH ×3 (12:00→20:30)
[2022-11-01] MEDS: amLODIPine BESYLATE 5 MG TAB PO SCH (12:00)
[2022-11-01] MEDS: ATORVASTATIN 20 MG TAB PO SCH (12:00)
[2022-11-01] MEDS: DOCUSATE SODIUM 100 MG CAP PO SCH (12:00)
[2022-11-01] MEDS: lisinopril 20 MG TAB PO SCH (12:01)
[2022-11-01] MEDS: SPIRONOLACTONE 25 MG TAB PO SCH (12:01)
[2022-11-01] MEDS: LISINOPRIL/HCTZ 20/25MG 1 TAB PO SCH (12:01)
[2022-11-01] MEDS: METOPROLOL SUCC 50MG EXT REL TAB PO SCH (12:01)
[2022-11-01] MEDS: POLYETHYLENE (MIRALAX) 17 GM PACK PO SCH (12:01)
[2022-11-01] MEDS: fentaNYL citrate PF 100 MCG/2 ML VIAL IV PRN ×4 (12:05→12:25)
[2022-11-01] MEDS: HYDROmorphone INJ 2 MG/ML SYR/VIAL IV PRN ×2 (12:34→12:44)
--- NOTE | 2022-11-01 12:42 | Fluoroscopy Report ---
FL lumbar spine 2-3V CLINICAL HISTORY: L3-L4 DECOM AND FUSION TECHNIQUE: 2 views were obtained with the C-arm in the OR with the above procedure. Total fluoroscopy time was 27.8 seconds. Radiation dose was 20.59 mGy. Comparison: None available at the time of this dictation. FINDINGS/IMPRESSION: Intraoperative images were obtained of L3-L4 decompression and fusion. Please correlate with intraoperative fluoroscopy and operative report. ACT 112: Negative or not required by law. Electronically signed by: Ken Álvarez M.D. 11/01/2022 12:40 PM
--- NOTE | 2022-11-01 13:10 | Anesthesiology Progress Note ---
Date of Service November 01, 2022 Anesthesia Post Procedure Vital Signs Vital Signs: Temp Pulse Pulse Pulse Resp BP BP 11/01/22 12:55 36.2 C L 80 13 134/86 11/01/22 12:45 81 14 134/82 11/01/22 12:35 80 19 132/83 11/01/22 12:25 79 15 138/87 11/01/22 12:15 78 14 121/90 11/01/22 12:05 80 21 135/82 11/01/22 11:58 36.4 C L 85 20 162/94 H 11/01/22 08:47 36.7 C 74 20 124/103 H 11/01/22 08:09 36.6 C 65 18 133/74 11/01/22 03:12 36.5 C 64 18 110/69 10/31/22 22:54 88 10/31/22 23:18 36.8 C 76 16 127/77 10/31/22 19:32 36.7 C 80 18 130/84 10/31/22 16:05 72 10/31/22 14:46 36.8 C 80 18 132/71 Pulse Ox O2 Del Method O2 Flow Rate 11/01/22 12:55 96 Nasal Cannula 3 11/01/22 12:45 96 Nasal Cannula 3 11/01/22 12:35 98 Nasal Cannula 3 11/01/22 12:25 100 Oxymask 4 11/01/22 12:15 98 Oxymask 4 11/01/22 12:05 97 Oxymask 6 11/01/22 11:58 98 Oxymask 6 11/01/22 08:47 97 Room Air 11/01/22 08:09 94 Room Air 11/01/22 03:12 95 Room Air 10/31/22 22:54 10/31/22 23:18 95 Room Air 10/31/22 19:32 94 Room Air 10/31/22 16:05 10/31/22 14:46 94 Room Air Pain Intensity Lower Back: Pain Intensity: 7 Transfer of Care Handoff Completed per policy Notes Mental Status: alert / awake / arousable Patient Amnestic to Procedure: Yes Nausea / Vomiting: adequately controlled Pain: adequately controlled Airway Patency, RR, SpO2: stable & adequate BP & HR: stable & adequate Hydration State: stable & adequate Anesthetic Complications: no major complications apparent
[2022-11-01] MEDS ORDERED: PROMETHAZINE HCL 12.5 MG in SODIUM CHLORIDE 0.9% 50 ML IV PRN (13:30)
[2022-11-01] MEDS ORDERED: METOCLOPRAMIDE HCL INJ 5 MG/ML 2 ML VIAL IV PRN (13:30)
[2022-11-01] MEDS ORDERED: DO NOT ADMINISTER PNEUMOCOCCAL VACCINE PRN (13:30)
[2022-11-01] MEDS ORDERED: FAMOTIDINE 20 MG TAB PO PRN (13:30)
[2022-11-01] MEDS ORDERED: NALOXONE HCL 0.4 MG/1 ML VIAL/CARP IV PRN (13:30)
[2022-11-01] MEDS ORDERED: LORazepam 0.5 MG TAB PO PRN (13:30)
[2022-11-01] MEDS ORDERED: HYDROmorphone INJ 0.5 MG/0.5 ML SYR IV PRN (13:30)
[2022-11-01] MEDS ORDERED: ALUMINUM/MAGNESIUM SUSP 30 ML UDC PO PRN (13:30)
[2022-11-01] MEDS ORDERED: diphenhydrAMINE Capsule 25 MG CAP PO PRN (13:30)
[2022-11-01] MEDS ORDERED: ACETAMINOPHEN 1,000 MG/100 ML VIAL IV PRN (13:30)
[2022-11-01] MEDS ORDERED: MAGNESIUM HYDROXIDE SUSP 30 ML UDC PO PRN (13:30)
[2022-11-01] MEDS ORDERED: traMADol HCL 50 MG TABLET PO PRN (13:30)
[2022-11-01] MEDS ORDERED: LORazepam 2 MG/1 ML VIAL IV PRN (13:30)
[2022-11-01] MEDS ORDERED: bisacodyL 10 MG SUPP PR PRN (13:30)
[2022-11-01] MEDS ORDERED: ACETAMINOPHEN 500 MG TAB PO PRN (13:30)
[2022-11-01] MEDS ORDERED: DO NOT ADMINISTER FLU VACCINE PRN (13:30)
[2022-11-01] MEDS ORDERED: ONDANSETRON 4 MG OD TAB PO PRN (13:30)
[2022-11-01] MEDS ORDERED: SOD PHOSPHATE/SOD BIPHOSPHATE ENEMA 132 ML BTL PR PRN (13:30)
[2022-11-01] MEDS ORDERED: hydrOXYzine HCl 25 MG TAB PO PRN (13:30)
[2022-11-01] MEDS: LACTATED RINGER'S 1,000 ML IV SCH ×2 (14:08→20:35)
[2022-11-01] MEDS: oxyCODONE HCL IR 5 MG TAB (IMMEDIATE RELEASE) PO PRN ×2 (14:33→18:28)
[2022-11-01] MEDS: ceFAZolin 2000MG 2,000 MG/15 ML SYR IV SCH (16:48)
[2022-11-01] MEDS: HYDROmorphone INJ 1 MG/ML SYRINGE IV PRN ×2 (16:56→20:31)
--- NOTE | 2022-11-01 17:05 | Hospitalist Progress Note ---
Date of Service November 01, 2022 Assessment & Plan (1) Lumbar radiculopathy: Plan: Low back pain has been going on for about 2 to 3 years. Patient presenting from home with reports of intractable low back pain with radiation into the left leg with associated left leg weakness. Patient also reported urinary incontinence. Postvoid bladder scan obtained in ED demonstrating no urinary retention. Lumbar spine MRI from 10/24/2022 - Moderate to severe canal stenosis secondary to facet hypertrophic changes and diffuse annular disc bulge at L3-4 level. Right-sided moderate to severe neural foraminal encroachment noted at several levels. Multilevel facet hypertrophic ch anges noted. Pain control with scheduled Tylenol and low-dose Valium. Oxycodone and IV morphine for breakthrough pain. Preop EKG and CXR reviewed. CXR showing cardiomegaly and mild pulmonary edema. Patient is saturating well on room air, denies shortness of breath. Will resume home diuretics. Obtain echo. EKG shows NSR. Spine Ortho consult -- Dr. Lopez notified by ED provider. Per ED provider, no indication to repeat lumbar spine MRI at this time. Appreciate orthospine input and recommendation for lumbar decompression fusion tomorrow Patient remained stable and the blood pressure on the upper side but seems to be improving We will get PT OT evaluation Status post lumbar decompression fusion POD #0-management will be as per Ortho Feeling much better without any significant symptoms (2) Hypertensive urgency: Plan: Presenting BP 203/123 Likely due to pain/anxiety/missed a.m. doses of antihypertensives S/p labetalol 10 mg IV in the ED with improvement in BP Mild pulmonary edema noted on CXR -- ?? From hypertensive urgency. Will give Lasix 20 mg IV x 1 dose tonight. Obtaining echo as above. Give home doses of lisinopril/HCTZ, metoprolol, and amlodipine now. In addition to lisinopril/HCTZ, patient also on lisinopril 20 mg daily, will resume in the a.m. along with spironolactone. Has been getting his usual blood pressure medications BP remains on the higher side at 156/90 and expected to improve Blood pressure is controlled now (3) Anxiety: Plan: Continue escitalopram (4) Hyperlipidemia: Plan: Continue statin DVT PROPHYLAXIS SCDs due to possible upcoming surgical procedure DVT prophylaxis as per Ortho Patient seen in collaboration with Dr. Mckinney. Admission and Anticipated Discharge Date Admission Date: October 31, 2022 Subjective 10/31/2022 The patient was seen and examined in medical telemetry unit He was admitted with intractable back pain with radiculopathy and high blood pressure secondary Denies any problem with urinary and/or bowel habit He will go for lumbar decompression fusion tomorrow by Dr. Lopez 11/01/2022 The patient was seen and examined in medical floor He is a status post lumbar decompression fusion and has been doing fine Review of Systems Review of Systems: All systems reviewed and are unremarkable except as noted below Musculoskeletal: Low back pain with radiation to the left buttock and left anterior thigh Physical Exam Physical Exam: Lying in bed with acute distress due to back pain Constitutional: well developed, well nourished, + ill appearing and average body habitus Eyes: PERRL, conjunctivae normal, anicteric sclerae ENMT: external ear and nose normal, oropharynx normal Neck: trachea midline, no thyromegaly Respiratory: no respiratory distress Auscultation: lungs clear to auscultation bilaterally Cardiovascular: Rate/Rhythm: regular rate and regular rhythm; not tachycardic Heart Sounds: normal S1 and normal S2; no murmur Extremities: no edema Gastrointestinal (Abdomen): Inspection/Auscultation: normal bowel sounds; abdomen not distended Percussion/Palpation: abdomen soft; abdomen nontender Psychiatric: A+Ox3, euthymic affect Lymphatic: no cervical or axillary lymphadenopathy Results & Data Results & Data Vital Signs (Past 12 Hours) Vital Signs Temp Pulse Pulse Resp BP Pulse Ox O2 Del Method 11/01/22 16:33 36.7 C 93 H 18 112/71 93 Room Air 11/01/22 15:28 36.5 C 96 H 18 131/76 93 Room Air 11/01/22 14:31 36.7 C 98 H 18 131/76 92 Nasal Cannula 11/01/22 14:00 36.3 C L 82 18 113/74 93 Nasal Cannula 11/01/22 13:25 36.9 C 84 18 127/85 94 Nasal Cannula 11/01/22 12:55 36.2 C L 80 13 134/86 96 Nasal Cannula 11/01/22 12:45 81 14 134/82 96 Nasal Cannula 11/01/22 12:35 80 19 132/83 98 Nasal Cannula 11/01/22 12:25 79 15 138/87 100 Oxymask 11/01/22 12:15 78 14 121/90 98 Oxymask 11/01/22 13:05 36.6 C 83 16 129/78 95 Nasal Cannula 11/01/22 12:05 80 21 135/82 97 Oxymask 11/01/22 11:58 36.4 C L 85 20 162/94 H 98 Oxymask 11/01/22 08:47 36.7 C 74 20 124/103 H 97 Room Air 11/01/22 08:09 36.6 C 65 18 133/74 94 Room Air O2 Flow Rate 11/01/22 16:33 11/01/22 15:28 11/01/22 14:31 2 11/01/22 14:00 2 11/01/22 13:25 2 11/01/22 12:55 3 11/01/22 12:45 3 11/01/22 12:35 3 11/01/22 12:25 4 11/01/22 12:15 4 11/01/22 13:05 3 11/01/22 12:05 6 11/01/22 11:58 6 11/01/22 08:47 11/01/22 08:09 Laboratory Results Short CBC 11/01/22 Range/Units 06:41 WBC 8.17 (4.8-10.8) K/ul Hgb 14.5 (14.0-18.0) g/dl Hct 43.9 (42.0-52.0) % Plt Count 247 (130-400) K/uL BMP 11/01/22 06:41 Sodium 137 Potassium 4.1 Chloride 99 Carbon Dioxide 32 BUN 26 H Creatinine 0.94 Glucose 92 Calcium 9.1 Medications Administered Current Inpatient Medications Acetaminophen (Acetaminophen 500 Mg Tab) 1,000 mg PO Q8H PRN PRN Reason: MILD Pain Scale 1,2,3 & Pre PT Stop: 12/01/22 13:29 Al Hydrox/Mg Hydrox/Simethicone (Aluminum/Magnesium Susp 30 Ml Udc) 30 ml PO Q6H PRN PRN Reason: Dyspepsia Stop: 12/01/22 13:29 Amlodipine Besylate (Amlodipine Besylate 5 Mg Tab) 10 mg PO QAM [facility] Stop: 11/29/22 17:48 Last Admin: 11/01/22 12:00 Dose: Not Given Atorvastatin Calcium (Atorvastatin 20 Mg Tab) [facility] [place] 11/30/22 08:59 Last Admin: 11/01/22 12:00 Dose: Not Given Atropine Sulfate (Atropine Sulfate 0.1 Mg/Ml 10ml Syr) 0.5 mg IV Q1M PRN PRN Reason: PACU Use-HR<40 &/or Bradycardi Stop: 11/01/22 17:27 Bisacodyl (Bisacodyl 10 Mg Supp) 10 mg MD DAILY PRN PRN Reason: Constipation Stop: 12/01/22 13:29 Diphenhydramine HCl (Diphenhydramine Capsule 25 Mg Cap) 25 mg PO Q6H PRN PRN Reason: Allergic Rhinitis/Insomnia Stop: 12/01/22 13:29 Ephedrine Sulfate (Ephedrine Sulfate 50 Mg/Ml Amp) 5 mg IV Q5M PRN PRN Reason: PACU Use Only-SBP<90 mmHg Stop: 11/01/22 17:27 Escitalopram Oxalate (Escitalopram Oxalate 10 Mg Tab) 10 mg PO [facility] Stop: 11/30/22 08:59 Last Admin: 11/01/22 12:00 Dose: Not Given Famotidine (Famotidine 20 Mg Tab) 20 mg PO Q12H PRN PRN Reason: Dyspepsia Stop: 12/01/22 13:29 Fentanyl Citrate (Fentanyl Citrate Pf 100 Mcg/2 Ml Vial) 50 mcg IV Q5M PRN PRN Reason: PACU Use Only-Pain Stop: 11/01/22 17:27 Last Admin: 11/01/22 12:25 Dose: 50 mcg Gabapentin (Gabapentin 300 Mg Cap) 600 mg PO [facility] Stop: 11/29/22 20:59 Last Admin: 11/01/22 12:00 Dose: Not Given Gabapentin (Gabapentin 300 Mg Cap) 300 mg PO DAILY@1400 [facility] [place] Stop: 11/30/22 13:59 Last Admin: 11/01/22 14:34 Dose: 300 mg Lisinopril/HCTZ (Lisinopril/Hctz 20/25mg 1 Tab) 1 tab PO [facility] Stop: 11/30/22 08:59 Last Admin: 11/01/22 12:01 Dose: Not Given Hydromorphone HCl (Hydromorphone Inj 2 Mg/Ml Syr/Vial) 0.5 mg IV Q5M PRN PRN Reason: PACU Use Only-Pain Stop: 11/01/22 17:27 Last Admin: 11/01/22 12:44 Dose: 0.5 mg Hydromorphone HCl (Hydromorphone Inj 0.5 Mg/0.5 Ml Syr) 0.5 mg IV Q3H PRN PRN Reason: MODERATE Pain (Scale 4,5,6) & Stop: 11/15/22 13:29 Hydromorphone HCl (Hydromorphone Inj 1 Mg/Ml Syringe) 1 mg IV Q3H PRN PRN Reason: SEVERE Pain (Scale 7,8,9,10) Stop: 11/15/22 13:29 Last Admin: 11/01/22 16:56 Dose: 1 mg Hydroxyzine HCl (Hydroxyzine Hcl 25 Mg Tab) 25 mg PO Q8H PRN PRN Reason: Anxiety Stop: 12/01/22 13:29 Promethazine HCl 6.25 mg/ (Sodium Chloride) 50.25 mls @ 204 mls/hr IV ONCE PRN PRN Reason: PACU Use Only-Nausea/Vomiting Stop: 11/01/22 17:27 Lactated Ringer's (Lr) 1,000 mls @ 150 mls/hr IV .Q6H40M TISHA Stop: 12/01/22 13:29 Last Admin: 11/01/22 14:08 Dose: 150 mls/hr Acetaminophen (Ofirmev) 1,000 mg in 100 mls @ 400 mls/hr IV Q8H PRN PRN Reason: Pain Rating 1-3 & Pre PT Stop: 11/02/22 13:31 Cefazolin Sodium (Ancef 2000mg) 2,000 mg in 15 mls @ 3.75 mls/min IV Q8H [facility]; Protocol Stop: 11/02/22 01:48 Last Admin: 11/01/22 16:48 Dose: 3.75 mls/min Dexamethasone 6 mg/ Syringe 1.5 mls @ 1 mls/min IV DAILY@0900 [facility] [place] Stop: 11/04/22 09:02 Promethazine HCl 12.5 mg/ (Sodium Chloride) 50.5 mls @ 202 mls/hr IV Q6H PRN PRN Reason: Nausea &/or Vomiting Stop: 12/01/22 13:29 Influenza Virus Vaccine Quadrival (Do Not Administer Flu Vaccine) 1 each N/A PRN PRN PRN Reason: Notification Stop: 12/01/22 13:29 Lisinopril (Lisinopril 20 Mg Tab) 20 mg PO DAILY [facility] [place] Stop: 11/30/22 08:59 Last Admin: 11/01/22 12:01 Dose: Not Given Lorazepam (Lorazepam 0.5 Mg Tab) 0.5 mg PO Q8H PRN PRN Reason: Sedation/Anxiety Stop: 12/01/22 13:29 Lorazepam (Lorazepam 2 Mg/1 Ml Vial) 0.5 mg IV Q8H PRN PRN Reason: Sedation/Anxiety Stop: 12/01/22 13:29 Magnesium Hydroxide (Magnesium Hydroxide Susp 30 Ml Udc) 30 ml PO Q24H PRN PRN Reason: Constipation Stop: 12/01/22 13:29 Metoclopramide HCl (Metoclopramide Hcl Inj 5 Mg/Ml 2 Ml Vial) 10 mg IV Q6H PRN PRN Reason: Nausea &/or Vomiting Stop: 12/01/22 13:29 Metoprolol Succinate (Metoprolol Succ 50mg Ext Rel Tab) 50 mg PO QAM [facility] [place] Stop: 11/30/22 08:59 Last Admin: 11/01/22 12:01 Dose: Not Given Naloxone HCl (Naloxone Hcl 0.4 Mg/1 Ml Vial/Carp) 0.1 mg IV Q5M PRN PRN Reason: Oversedation/Resp depression Stop: 12/01/22 13:29 Ondansetron HCl (Ondansetron Inj 2 Mg/Ml 2 Ml Vial) 4 mg IV ONCE PRN PRN Reason: PACU Use Only-Nausea/Vomiting Stop: 11/01/22 17:27 Last Admin: 11/01/22 14:39 Dose: 4 mg Ondansetron HCl (Ondansetron Inj 2 Mg/Ml 2 Ml Vial) 4 mg IV Q6H PRN PRN Reason: Nausea &/or Vomiting Stop: 12/01/22 13:29 Ondansetron HCl (Ondansetron 4 Mg Od Tab) 4 mg PO Q6H PRN PRN Reason: Nausea Stop: 12/01/22 13:29 Oxycodone HCl (Oxycodone Hcl Ir 5 Mg Tab (Immediate Release)) 5 - 10 mg PO Q4H PRN PRN Reason: Pain & Pre PT Stop: 11/15/22 13:29 Last Admin: 11/01/22 14:33 Dose: 10 mg Pneumococcal Polyvalent Vaccine (Do Not Administer Pneumococcal Vaccine) 1 each N/A PRN PRN PRN Reason: Notification Stop: 12/01/22 13:29 Polyethylene Glycol (Polyethylene (Miralax) 17 Gm Pack) 17 gm PO Q6 [facility] Stop: 12/02/22 05:59 Senna/Docusate Sodium (Docusate Sodium/Senna 50/8.6mg Tab) 2 tab PO HS [facility] Stop: 12/01/22 20:59 Sodium Biphosphate/Sodium Phosphate (Sod Phosphate/Sod Biphosphate Enema 132 Ml Btl) 132 ml MD ONE PRN PRN Reason: Constipation Stop: 12/01/22 13:29 Spironolactone (Spironolactone 25 Mg Tab) 25 mg PO QAM [facility] Stop: 11/30/22 08:59 Last Admin: 11/01/22 12:01 Dose: Not Given Tramadol HCl (Tramadol Hcl 50 Mg Tablet) 50 - 100 mg PO Q4H PRN PRN Reason: Moderate-Severe pain & Pre PT Stop: 12/01/22 13:29
[2022-11-01] MEDS: DOCUSATE SODIUM/SENNA 50/8.6MG TAB PO SCH (20:29)
[2022-11-02] MEDS: HYDROmorphone INJ 1 MG/ML SYRINGE IV PRN ×4 (00:22→20:20)
[2022-11-02] MEDS: ceFAZolin 2000MG 2,000 MG/15 ML SYR IV SCH (02:29)
[2022-11-02] MEDS: POLYETHYLENE (MIRALAX) 17 GM PACK PO SCH ×4 (05:17→23:27)
[2022-11-02] MEDS: oxyCODONE HCL IR 5 MG TAB (IMMEDIATE RELEASE) PO PRN ×4 (05:18→22:33)
--- NOTE | 2022-11-02 08:43 | Orthopedic Progress Note ---
Date of Service November 02, 2022 Assessment & Plan (1) Neurogenic claudication due to lumbar spinal stenosis: Plan: Justino is postoperative day 1 status post TLIF L3-4. He is doing great. Will start physical therapy today. Ambulate ad epi. DVT prophylaxis is in the form of teds and SCDs. Continue with pain control. Continue with aggressive bowel regimen. Anticipate discharge home within the next 24 to 48 hours. Admission and Anticipated Discharge Date Admission Date: October 31, 2022 Subjective Justino is postoperative day 1 status post TLIF L3-4. He feels great. Still has some left hip pain but greatly improved compared to preoperative status. LAZ drain output last shift was 60 cc. He has been up and ambulatory to the restroom and the hallways with a walker. Review of Systems Review of Systems: All systems reviewed & are unremarkable except as noted in HPI & below Physical Exam Physical Exam: Is he sitting on the edge of the bed in no acute distress Alert and oriented x3 Lumbar dressing is clean dry intact with functioning LAZ drain Strength is intact bilateral lower extremities Calf soft nontender bilaterally Results & Data Vital Signs (Past 12 Hours) Vital Signs Temp Pulse Resp BP Pulse Ox O2 Del Method 11/02/22 07:43 36.7 C 89 16 147/83 H 97 Room Air 11/02/22 03:59 36.6 C 85 16 112/65 95 Room Air 11/01/22 23:32 36.6 C 93 H 16 125/85 96 Room Air
[2022-11-02] MEDS: dexAMETHasone 6 MG in SYRINGE 0 ML IV SCH (08:52)
[2022-11-02] MEDS: LISINOPRIL/HCTZ 20/25MG 1 TAB PO SCH (08:54)
[2022-11-02] MEDS: ATORVASTATIN 20 MG TAB PO SCH (08:54)
[2022-11-02] MEDS: METOPROLOL SUCC 50MG EXT REL TAB PO SCH (08:55)
[2022-11-02] MEDS: ESCITALOPRAM OXALATE 10 MG TAB PO SCH (08:55)
[2022-11-02] MEDS: SPIRONOLACTONE 25 MG TAB PO SCH (08:56)
[2022-11-02] MEDS: amLODIPine BESYLATE 5 MG TAB PO SCH (08:56)
[2022-11-02] MEDS: GABAPENTIN 300 MG CAP PO SCH ×3 (08:57→20:20)
[2022-11-02] MEDS: lisinopril 20 MG TAB PO SCH (08:57)
[2022-11-02 09:18] LABS: Basophils # (auto) 0.02 K/uL (0-0.2); Basophils % (auto) 0.1 %; Eosinophils # (auto) 0.03 K/uL (0-0.50); Eosinophils % (auto) 0.2 %; Hematocrit (blood only) 41.2 % (42.0-52.0); Immature Granulocytes # (auto) 0.14 K/uL (0.01-0.20); Immature Granulocytes % (auto) 0.9 %; Lymphocytes # (auto) 1.73 K/uL (1.2-3.4); Lymphocytes % (auto) 11.6 %; Mean Corpuscular Hemoglobin 31.5 pg (25.0-34.0); Mean Corpuscular Volume 92.6 fL (80.0-100.0); Mean Platelet Volume 9.4 fL (9.4-12.4); Monocytes # (auto) 1.94 K/uL (0.11-0.59); Neutrophils # (auto) 11.08 K/uL (1.40-6.50); Neutrophils % (auto) 74.2 %; Platelet Count 281 K/uL (130-400); RDW Coefficient of Variation 15.1 % (11.5-14.5); RDW Standard Deviation 51.1 fL (36.4-46.3); Red Blood Count 4.45 M/uL (4.70-6.10); White Blood Count 14.94 K/ul (4.8-10.8)
[2022-11-02 09:30] LABS: BUN Creatinine Ratio 28.3 (10-20); Calcium 9.5 mg/dl (8.6-10.3); Creatinine Clr Calc Pharmacy 88.6 ml/min; Est GFR (African American) 98.7 ml/min; Est GFR (Non-African American) 85.2 ml/min; Potassium 4.4 mmol/L (3.5-5.1)
--- NOTE | 2022-11-02 11:13 | Hospitalist Progress Note ---
Date of Service November 02, 2022 Assessment & Plan (1) Lumbar radiculopathy: Plan: Low back pain has been going on for about 2 to 3 years. Patient presenting from home with reports of intractable low back pain with radiation into the left leg with associated left leg weakness. Patient also reported urinary incontinence. Postvoid bladder scan obtained in ED demonstrating no urinary retention. Lumbar spine MRI from 10/24/2022 * Moderate to severe canal stenosis secondary to facet hypertrophic changes and diffuse annular disc bulge at L3-4 level. Right-sided moderate to severe neural foraminal encroachment noted at several levels. Multilevel facet hypertrophic changes noted. Preop EKG and CXR reviewed. CXR showing cardiomegaly and mild pulmonary edema. Patient is saturating well on room air, denies shortness of breath. Will resume home diuretics. Obtain echo. EKG shows NSR. Echo: Moderate concentric left hypertrophy, EF 35 to 60%, grade 1 diastolic dysfunction, no significant valvular disease Spine Ortho consult -- Dr. Lopez notified by ED provider. Per ED provider, no indication to repeat lumbar spine MRI at this time. Appreciate orthospine input and recommendation for lumbar decompression fusion Pt is now s/p Lumbar decompression fusion L3-L4 POD #1 EBL 200ml; LAZ drain 500ml pain/wound/activity per Ortho Bowel regimen ordered by ortho (2) Hypertensive urgency: Plan: Patient with initially significant elevated blood pressure Likely in setting of pain, anxiety and missed medications Blood pressure has since improved with treatment with IV labetalol as well as IV Lasix Continue home medications of lisinopril/HCTZ, metoprolol,aldactone and amlodipine echo obtained pre op - reviewed (3) Anxiety: Plan: Continue escitalopram mostly stable, patient currently anxious about making sure he is prescribed narcotics at discharge (4) Hyperlipidemia: Plan: Continue statin DVT PROPHYLAXIS SCDs, ambulate ad epi A total of 40 was spent coordinating, documenting, and providing care for this patient excluding time spent in the performance of separately billed services. This included personally viewing all current laboratories and imaging studies, medication reconciliation, outpatient chart review, and discussion with specialists. Patient was seen and examined in collaboration with, Dr. Kay Admission and Anticipated Discharge Date Admission Date: October 31, 2022 Supervising Physician Co-Signing Physician Notes I have seen and examined the patient and have discussed the case with the provider above. I agree with the assessment and plan as stated. 67 yo M doing well post op with pain well controlled. Physical exam unremarkable. Cont activity and wound care per ortho and medically stable for discharge when cleaered by ortho. DO Luna Kay Patient seen and examined in room 377. Follow-up lumbar surgery. He continues to have incisional pain. Feels pain is similar to prior to surgery. He denies radicular symptoms or difficulty with bladder. He is able to get up and ambulate about the room. He is concerned about being discharged with pain medications. He states prior to surgery he was in the ER multiple times due to pain and multiple different pr oviders providing him narcotic prescription. He is afraid pharmacy will not fill his medications. He denies chest pain, shortness breath, nausea, vomiting is tolerating his diet. He denies any fevers. Review of Systems Review of Systems: All systems reviewed & are unremarkable except as noted in HPI & below Physical Exam Physical Exam: Gen: WD/WN, male, sitting at the bedside NAD, A&O x3 HEENT: Normocephalic, atraumatic, conjunctivae moist, sclerae anicteric, mucous membranes moist. Lung: Clear to Auscultation bilaterally, no wheezes/rales/rhonchi Heart: Regular rate, regular rhythm, no murmurs, rubs, or gallops Abdomen: Soft, NT, ND +BS x 4 Extremities: No edema, normal dressing CDI, LAZ drain for with serosanguineous drainage Skin: Warm, no rash, negative turgor. Results & Data Results & Data Vital Signs (Past 12 Hours) Vital Signs Temp Pulse Resp BP Pulse Ox O2 Del Method 11/02/22 07:43 36.7 C 89 16 147/83 H 97 Room Air 11/02/22 03:59 36.6 C 85 16 112/65 95 Room Air 11/01/22 23:32 36.6 C 93 H 16 125/85 96 Room Air Laboratory Results Short CBC 11/02/22 Range/Units 08:35 WBC 14.94 H (4.8-10.8) K/ul Hgb 14.0 (14.0-18.0) g/dl Hct 41.2 L (42.0-52.0) % Plt Count 281 (130-400) K/uL BMP 11/02/22 08:35 Sodium 137 Potassium 4.4 Chloride 100 Carbon Dioxide 29 BUN 26 H Creatinine 0.92 Glucose 105 H Calcium 9.5 Medications Administered Current Inpatient Medications Acetaminophen (Acetaminophen 500 Mg Tab) 1,000 mg PO Q8H PRN PRN Reason: MILD Pain Scale 1,2,3 & Pre PT Stop: 12/01/22 13:29 Al Hydrox/Mg Hydrox/Simethicone (Aluminum/Magnesium Susp 30 Ml Udc) 30 ml PO Q6H PRN PRN Reason: Dyspepsia Stop: 12/01/22 13:29 Amlodipine Besylate (Amlodipine Besylate 5 Mg Tab) 10 mg PO [facility] Stop: 11/29/22 17:48 Last Admin: 11/02/22 08:56 Dose: 10 mg Atorvastatin Calcium (Atorvastatin 20 Mg Tab) 20 mg PO [facility] Stop: 11/30/22 08:59 Last Admin: 11/02/22 08:54 Dose: 20 mg Bisacodyl (Bisacodyl 10 Mg Supp) 10 mg PA DAILY PRN PRN Reason: Constipation Stop: 12/01/22 13:29 Diphenhydramine HCl (Diphenhydramine Capsule 25 Mg Cap) 25 mg PO Q6H PRN PRN Reason: Allergic Rhinitis/Insomnia Stop: 12/01/22 13:29 Escitalopram Oxalate (Escitalopram Oxalate 10 Mg Tab) 10 mg PO [facility] Stop: 11/30/22 08:59 Last Admin: 11/02/22 08:55 Dose: 10 mg Famotidine (Famotidine 20 Mg Tab) 20 mg PO Q12H PRN PRN Reason: Dyspepsia Stop: 12/01/22 13:29 Gabapentin (Gabapentin 300 Mg Cap) 600 mg PO [facility] Stop: 11/29/22 20:59 Last Admin: 11/02/22 08:57 Dose: 600 mg Gabapentin (Gabapentin 300 Mg Cap) 300 mg PO DAILY@1400 [facility] Stop: 11/30/22 13:59 Last Admin: 11/01/22 14:34 Dose: 300 mg Lisinopril/HCTZ (Lisinopril/Hctz 20/25mg 1 Tab) 1 tab PO [facility] Stop: 11/30/22 08:59 Last Admin: 11/02/22 08:54 Dose: 1 tab Hydromorphone HCl (Hydromorphone Inj 0.5 Mg/0.5 Ml Syr) 0.5 mg IV Q3H PRN PRN Reason: MODERATE Pain (Scale 4,5,6) & Stop: 11/15/22 13:29 Hydromorphone HCl (Hydromorphone Inj 1 Mg/Ml Syringe) 1 mg IV Q3H PRN PRN Reason: SEVERE Pain (Scale 7,8,9,10) Stop: 11/15/22 13:29 Last Admin: 11/02/22 08:50 Dose: 1 mg Hydroxyzine HCl (Hydroxyzine Hcl 25 Mg Tab) 25 mg PO Q8H PRN PRN Reason: Anxiety Stop: 12/01/22 13:29 Acetaminophen (Ofirmev) 1,000 mg in 100 mls @ 400 mls/hr IV Q8H PRN PRN Reason: Pain Rating 1-3 & Pre PT Stop: 11/02/22 13:31 Dexamethasone 6 mg/ Syringe 1.5 mls @ 1 mls/min IV DAILY@0900 [facility] Stop: 11/04/22 09:02 Last Admin: 11/02/22 08:52 Dose: 1 mls/min Promethazine HCl 12.5 mg/ (Sodium Chloride) 50.5 mls @ 202 mls/hr IV Q6H PRN PRN Reason: Nausea &/or Vomiting Stop: 12/01/22 13:29 Influenza Virus Vaccine Quadrival (Do Not Administer Flu Vaccine) 1 each N/A PRN PRN PRN Reason: Notification Stop: 12/01/22 13:29 Lisinopril (Lisinopril 20 Mg Tab) 20 mg PO DAILY [facility] Stop: 11/30/22 08:59 Last Admin: 11/02/22 08:57 Dose: 20 mg Lorazepam (Lorazepam 0.5 Mg Tab) 0.5 mg PO Q8H PRN PRN Reason: Sedation/Anxiety Stop: 12/01/22 13:29 Lorazepam (Lorazepam 2 Mg/1 Ml Vial) 0.5 mg IV Q8H PRN PRN Reason: Sedation/Anxiety Stop: 12/01/22 13:29 Magnesium Hydroxide (Magnesium Hydroxide Susp 30 Ml Udc) 30 ml PO Q24H PRN PRN Reason: Constipation Stop: 12/01/22 13:29 Metoclopramide HCl (Metoclopramide Hcl Inj 5 Mg/Ml 2 Ml Vial) 10 mg IV Q6H PRN PRN Reason: Nausea &/or Vomiting Stop: 12/01/22 13:29 Metoprolol Succinate (Metoprolol Succ 50mg Ext Rel Tab) 50 mg PO QAM [facility] Stop: 11/30/22 08:59 Last Admin: 11/02/22 08:55 Dose: 50 mg Naloxone HCl (Naloxone Hcl 0.4 Mg/1 Ml Vial/Carp) 0.1 mg IV Q5M PRN PRN Reason: Oversedation/Resp depression Stop: 12/01/22 13:29 Ondansetron HCl (Ondansetron Inj 2 Mg/Ml 2 Ml Vial) 4 mg IV Q6H PRN PRN Reason: Nausea &/or Vomiting Stop: 12/01/22 13:29 Ondansetron HCl (Ondansetron 4 Mg Od Tab) 4 mg PO Q6H PRN PRN Reason: Nausea Stop: 12/01/22 13:29 Oxycodone HCl (Oxycodone Hcl Ir 5 Mg Tab (Immediate Release)) 5 - 10 mg PO Q4H PRN PRN Reason: Pain & Pre PT Stop: 11/15/22 13:29 Last Admin: 11/02/22 11:10 Dose: 10 mg Pneumococcal Polyvalent Vaccine (Do Not Administer Pneumococcal Vaccine) 1 each N/A PRN PRN PRN Reason: Notification Stop: 12/01/22 13:29 Polyethylene Glycol (Polyethylene (Miralax) 17 Gm Pack) 17 gm PO Q6 [facility] Stop: 12/02/22 05:59 Last Admin: 11/02/22 05:17 Dose: 17 gm Senna/Docusate Sodium (Docusate Sodium/Senna 50/8.6mg Tab) 2 tab PO HS [facility] Stop: 12/01/22 20:59 Last Admin: 11/01/22 20:29 Dose: 2 tab Sodium Biphosphate/Sodium Phosphate (Sod Phosphate/Sod Biphosphate Enema 132 Ml Btl) 132 ml PA ONE PRN PRN Reason: Constipation Stop: 12/01/22 13:29 Spironolactone (Spironolactone 25 Mg Tab) 25 mg PO QAM [facility] Stop: 11/30/22 08:59 Last Admin: 11/02/22 08:56 Dose: 25 mg Tramadol HCl (Tramadol Hcl 50 Mg Tablet) 50 - 100 mg PO Q4H PRN PRN Reason: Moderate-Severe pain & Pre PT Stop: 12/01/22 13:29
[2022-11-02] MEDS: DOCUSATE SODIUM/SENNA 50/8.6MG TAB PO SCH (20:19)
[2022-11-03] MEDS: POLYETHYLENE (MIRALAX) 17 GM PACK PO SCH (05:13)
[2022-11-03] MEDS: HYDROmorphone INJ 1 MG/ML SYRINGE IV PRN (05:13)
[2022-11-03] MEDS: ATORVASTATIN 20 MG TAB PO SCH (08:25)
[2022-11-03] MEDS: ESCITALOPRAM OXALATE 10 MG TAB PO SCH (08:26)
[2022-11-03] MEDS: GABAPENTIN 300 MG CAP PO SCH (08:26)
[2022-11-03] MEDS: LISINOPRIL/HCTZ 20/25MG 1 TAB PO SCH (08:27)
[2022-11-03] MEDS: lisinopril 20 MG TAB PO SCH (08:27)
[2022-11-03] MEDS: SPIRONOLACTONE 25 MG TAB PO SCH (08:28)
[2022-11-03] MEDS: METOPROLOL SUCC 50MG EXT REL TAB PO SCH (08:28)
[2022-11-03] MEDS: dexAMETHasone 6 MG in SYRINGE 0 ML IV SCH (08:29)
--- NOTE | 2022-11-03 08:32 | Orthopedic Progress Note ---
Date of Service November 03, 2022 Assessment & Plan (1) Neurogenic claudication due to lumbar spinal stenosis: Plan: At this time we will continue therapy this morning. We will be able to discharge him home today. Admission and Anticipated Discharge Date Admission Date: October 31, 2022 Subjective Back pain is controlled left leg pain markedly improved Physical Exam Physical Exam: Patient is up and ambulating is good strength testing. Appears comfortable. Results & Data Vital Signs (Past 12 Hours) Vital Signs Temp Pulse Resp BP Pulse Ox O2 Del Method 11/03/22 08:13 36.4 C L 80 16 134/89 97 Room Air
[2022-11-03] MEDS: oxyCODONE HCL IR 5 MG TAB (IMMEDIATE RELEASE) PO PRN (08:35)
[2022-11-03] MEDS: amLODIPine BESYLATE 5 MG TAB PO SCH (10:53)
--- NOTE | 2022-11-07 09:14 | Discharge Summary ---
Date of Service November 07, 2022 Admission HPI Per Admitting Provider 67-year-old male with PMH dyslipidemia, HTN, prostate cancer s/p prostatectomy, anxiety, depression, and other problems listed below who presents to the ED for evaluation of intractable back pain. History obtained from the patient and review of outpatient PCP records. Patient reports having low back pain for the past 1 year. Patient has had several ED visits recently for low back pain. Patient last seen on 10/24/2022 and had lumbar spine MRI showing moderate to severe canal stenosis secondary to facet hypertrophic changes and diffuse annular disc bulge at L3-4 level and right-sided moderate to severe neural fora enoc encroachment noted at several levels. Pain has been unrelieved with courses of steroids and narcotic use. Patient reports pain is located across both sides of his low back. Pain then radiates down to the left buttock into the right hip and down the lateral aspect of the left thigh into the left knee. Patient reports associated left leg weakness. He reports occasional burning sensation in both feet. He reports a few episodes of urinary incontinence over the past few months, last being this morning. Denies bowel dysfunction. No other recent illnesses, fevers, chills. Denies chest pain or shortness of breath. No lightheadedness, dizziness, diaphoresis, syncopal events. Denies abdominal pain, nausea, vomiting, diarrhea. In the ED, patient was found to be significant hypertensive with BP 203/123. Bladder scan was obtained for postvoid residual demonstrating no urinary retention. Patient received Tylenol, IV ketorolac, IV labetalol, IV morphine, IV Zofran. Admission Exam (Per Admitting) Constitutional WD/WN, vitals as above Eyes normal visual teixeira by confrontation ENMT external ear and nose normal, oropharynx normal Neck normal visual inspection Respiratory normal respiratory effort Cardiovascular Extremities: normal capillary refill Gastrointestinal (Abdomen) Inspection/Auscultation: abdomen normal to inspection Musculoskeletal Extremities: extremities normal to inspection Skin no rashes, warm and dry Neurologic normal touch/pain/proprioception and moves all extremities Psychiatric A+Ox3, euthymic affect Discharge Data Consultations 10/30/22 14:46 Consult Orthopedic Surgery Routine 10/30/22 15:00 ED Decision to Admit Stat 10/30/22 17:49 Consult Orthopedic Surgery Routine Procedures Performed Operation Date: 11/01/22 09:35 Actual Procedures p L3-L4 Decompression and Fusion with Spinal Cord Monitoring(Not Applicable) - Micah Lopez, Hospital Course (1) Back pain: Patient patient presented to the emergency room on October 30, 2022 for back and left lower extremity pain. This was after multiple ER consultations in the past couple of months. The decision was made that he would be admitted to the hospitalist team. Orthospine was consulted. He was deemed a surgical candidate. He went into the operative suite on October [address] Lopez for a posterior lumbar decompression and instrumented fusion at L3-4. He had an uneventful hospital course. Lab values stable. Pain was controlled. Made great progress in physical therapy. He was discharged home on postoperative day 3. Discharge Instructions ACTIVITY RECOMMENDATIONS: SELF CARE INSTRUCTIONS AFTER THORACIC/LUMBAR FUSIONS 1. You may walk to your tolerance. It is good exercise for your legs and back. Expect some back and intermittent leg aches and pains. 2. You may perform "counter-top" level activities (make a sandwich, george with a project, etc.). 3. No bending or lifting of more than 10 pounds or back twisting of any nature (roll like a log when turning in bed). 4. You may ride in a car for 20-30 minutes at a time. No driving until after your first visit with your doctor. 5. Frequent changes of position and restricting sitting to 30 minutes at a time will help limit the amount of back spasms and stiffness you may experience. 6. You may discontinue the use of ambulatory aids (cane, crutches, etc.) once your strength and confidence allow. 7. You may lightning protection installer the shower and let water strike your incision when you arrive home at least once daily. Do not take a tub bath, sit in a hot tub or go into a swimming pool until after your first recheck in the office. SPECIAL CARE INSTRUCTIONS: VERY IMPORTANT TO READ AND REVIEW A. Your surgical incision has been closed with a cosmetic suture under the skin that will dissolve in about 6 weeks. In 14 days, you can use a pair of clean scissors and cut the suture that is left outside of the skin at the ends of your incision. 1. The small skin tapes can be removed 7 days after surgery if they have not fallen off by that point. 2. You may keep the wound open to air as much as possible to promote healing after post-op day number 5 unless told otherwise by your doctor. 3. If you think the wound looks like it is becoming infected (redness or worsening drainage) and/or you are experiencing fever, chill or worsening back pain and muscle spasms, contact the office so that we may evaluate you as soon as possible. B. Complications are uncommon, but please contact us if you have any signs or symptoms of: 1. wound infection (fever higher than 102.5 degrees F, redness, separation of wound, drainage, or increasing pain from the incision) 2. blood clots in legs (pain, swelling, redness and warmth in legs) 3. urinary tract infection (fever higher than 102.5 degrees F, burning upon urination or increased frequency of urination) 4. nerve problems (inability to walk on your toes or heels, numbness, loss of bowel or bladder control) 5. any other symptoms that concern you C. Please call the office at if you have any concerns or questions about your operation or recovery. D. No smoking! Smoking drastically decreases the chance of a solid fusion. E. Do not take any anti-inflammatory medications (Indocin, Advil, Motrin, Aspirin, Naprosyn, etc.) as these may inhibit the chance of a solid fusion. Tylenol is okay to take for pain. MANAGING PAIN AFTER SPINAL SURGERY 1. Narcotic medication is intended for short-term use and will be provided for surgical pain. Surgical pain usually lasts for a period of 4-6 weeks. Narcotic medication includes Percocet, Vicodin, Darvocet, Tylenol #3 or Lortab. 2. Longer-term pain is more appropriately treated with non-narcotic medication such as Tylenol ES. 3. Muscle spasm is not appropriately treated with narcotics. Muscle relaxers such as Soma, Flexeril or Skelaxin can be used along with Tylenol ES. 4. Remember that we all live with some "aches and pains". This is not unusual or uncommon after an injury or as we get older. a. Back pain is expected and may include muscle spasms for 4 to 6 weeks after surgery. The pain should gradually improve. If the pain worsens for no apparent reason, please contact the office. b. Intermittent leg pain may also be experienced and should not be concerned about unless it worsens for no apparent reason. If so, please contact the office. 5. We will provide appropriate medication within the normal guidelines of their prescribed use. We will also be very cautious and aware of potential abuse and extended duration of patients' medication needs. a. Pain medications are for your comfort and to assist with sleep and rest so that the tissue can heal. They are not provided in order to return to normal activity and should not be used through the day. To do so or worsening pain at night can result from ongoing tissue damage and development of tolerance to the prescribed medicine. 6. Please allow 2-3 days to process refills. Prescriptions will not be mailed but must be picked up at the office. FOLLOW UP VISIT: Keep your scheduled follow-up appointment. Any questions, please call the office at .
== END 2022-11-03 11:15 | disposition home or self-care (01) | DRG 455 ==
LOC: EDINP 14:12 → ED 14:12 → SUATTDRO 15:27 → 2N 17:49 → SUATTDRO 10-31 15:04 → 3N 11-01 13:23

== ENCOUNTER 2023-06-02 13:05 | Observation (INO) ==
--- NOTE | 2023-06-02 13:43 | Emergency Department Note ---
Impression & Plan Transient monocular blindness, Visual disturbance of one eye, Hypertension ED Provider Note NAME: IZZY RICE AGE: 67 SEX: M : 1955 ARRIVES VIA: Walk-In INFORMANT: Patient, ED PROVIDER(S): Rudy Meza MD CHIEF COMPLAINT: Vision loss MEDICAL DECISION MAKING: Patient presents due to concern for left-sided monocular vision loss. This sounds consistent with amaurosis fugax. IV was established and blood was obtained along with an EKG. Patient blood work is fairly unremarkable. EKG without A-fib. CT and CT angiography head and neck are negative. I did speak with Dr. Dailey with neurology at [facility] recommended an inpatient consultation to discuss any further management. Patient is not a TNKase/tPA candidate. I did speak with Donna Winters PA-C and the patient was admitted by Dr. Mercedes. We did request that I speak with on-call ophthalmology. I spoke with Dr. Rizzo and discussed the patient's case he believes that this does sound like amaurosis fugax and less likely CRAO and does not require any change in treatment at this time. Patient was informed of the findings ordered his by mouth tramadol and wound was admitted to the medicine service. Discussion w/ other healthcare providers: Dr. Dailey [facility] neurology Donna Winters PA-C and Dr. Mercedes inpatient medicine service Dr. Rizzo with ophthalmology Prior /Outside records reviewed: None Differential diagnosis: Infection, dehydration, metabolic abnormality, hypo/hyperglycemia, electrolyte imbalance, anemia, UTI, pneumonia, thyroid dysfunction among others were considered. Diagnostics, as interpreted by me: ECG: Sinus with PVCs, rate of 86, normal intervals, normal axis no ST elevations. Cardiac monitoring: An order was placed for continuous cardiac monitoring. The monitor shows a rate of 87 with sinus rhythm. Patient was placed on pulse oximetry Medical decision rules: ABCD2 score Imaging studies: I informally interpreted the patient's CT head which does not show obvious ICH with formal report to follow. HPI: Patient presents due to concern for monocular vision loss. Patient states that he does suffer from chronic back pain. Patient states that he did go to work today while working he noticed a change in his vision to where he lost complete vision in his left eye. Patient states this lasted about 10 minutes and then slowly dissipated and returned. Patient denies any prior history of stroke or mini stroke. Patient denies any falls or trauma no headache or neck pain. No numbness tingling or focal weakness. Vision is returned. Patient does not wear any contact or corrective lenses. Patient does admit to feeling anxious. PAST MEDICAL HISTORY: See Below PAST SURGICAL HISTORY: See Below SOCIAL HISTORY: See Below HOME MEDICATIONS: See Below ALLERGIES: See Below VITALS: See Below PHYSICAL EXAMINATION: GENERAL: NAD, non-toxic. EYE EXAM: Normal conjunctiva. PERRL, no anisocoria and EOM's grossly intact w/o pain. No visual field deficits noted. OROPHARYNX: Moist mucus membranes, grossly normal dentition. NECK: Supple, no nuchal rigidity, no adenopathy, non-tender. No signs of meningismus. FROM of the neck with good chin to chest and neck extension. No stridor. LUNGS: Clear to auscultation. Normal chest wall mechanics. HEART: NSR, no MRG. ABDOMEN: Abdomen soft, non-tender, no masses, no rebound or guarding. BACK: No CVA TTP. SKIN: No rashes and no bruising. UPPER EXTREMITIES: Upper extremities are grossly normal. LOWER EXTREMITIES: Grossly normal, no edema. NEURO EXAM: A&O x3, cranial nerves II-XII grossly intact, normal speech, moves all 4 extremities. Good [id number], no drift and no sensory deficits. Past Med/Surg History Medical History Anxiety Arthritis Depression stable off meds Cancer BCC (chest, neck, back) s/p excision Hyperlipidemia History of COVID-19 Dx 04/27/20 (report documented in [facility]) > symptoms at time of low grade fever, body aches, elevated BP > symptoms resolved/currently asymptomatic Prostate cancer Lumbar radiculopathy Osteoarthritis Chronic prostatitis History of nocturia Chronic back pain Depression with suicidal ideation Chronic neck pain Hypertension Surgical History History of total right knee replacement (TKR) (~08/2021) [facility] Hx of prostatectomy due to cancer and no chemo/radiation needed History of arthroscopy Right knee History of carpal tunnel release R/L History of tonsillectomy History of total knee arthroplasty Left History of lithotripsy Right ESWL: 05/31/19: [place]5 [place] [facility] [place] History Father Diabetes Mother Hypertension Sister Cancer Social History Smoking Status: Never smoker Tobacco Type: Cigarettes Second Hand Exposure: No; Do You Dip or Chew Tobacco: No; Hx Alcohol Use: No Hx Substance Use: No Preferred Language: Danish Communication Ability: Effective Visual Impairment: No Limitations Hearing Ability: Normal Casino Enforcement Agent Required: No Beliefs That Will Affect Care: None marital status: Current Living Situation: Family Current Living Situation Comment: lives with son Matthew current occupational status: employed How many Children do You have: 3 Other Information That Helps Us Care for You: No Feels Safe at Home: Yes Safety Concerns: Feels Safe At This Time Assistive Devices: None Allergies Allergies Allergy/AdvReac Type Severity Reaction Status Date / Time No Known Allergies Allergy Verified 06/02/23 14:47 Home Meds Home Medications Medication Instructions Recorded Confirmed gabapentin 300 mg capsule See Rx Instructions .Route .COMPLEX 06/13/21 06/02/23 lisinopril 20 mg tablet 20 mg PO DAILY 06/13/21 06/02/23 escitalopram oxalate 10 mg tablet 10 mg PO QAM 12/04/21 06/02/23 tramadol 50 mg tablet 50 mg PO Q6H PRN Moderate Pain 10/24/22 06/02/23 (Scale Score 5-6) spironolactone 50 mg tablet 50 mg PO QAM 03/09/23 06/02/23 tizanidine 4 mg tablet 4 mg PO Q6H PRN Muscle Spasm 03/29/23 06/02/23 albuterol sulfate 90 mcg/actuation 2 puff inhalation Q6H PRN 05/30/23 06/02/23 aerosol inhaler COUGH/WHEEZING metoprolol succinate 50 mg 50 mg PO HS 05/30/23 06/02/23 tablet,extended release 24 hr Previous Rx's Medication Instructions Recorded amlodipine 5 mg tablet (Norvasc) 5 mg PO QAM #30 tabs 06/04/23 aspirin 81 mg tablet,delayed 81 mg PO QAM #30 tabs 06/04/23 release atorvastatin 40 mg tablet 80 mg (2 x 40 mg) PO HS #60 tabs 06/04/23 Results & Data (ED) Vital Signs Vital Signs - 24 hr 06/02/23 13:07 Pulse Rate 101 H Pulse Rhythm Regular Pulse Strength Normal Respiratory Rate 20 Respiratory Effort / Characteristics Non-Labored Spontaneous Respiratory Depth Normal Respiratory Pattern Regular Blood Pressure 206/143 H Blood Pressure Mean 164 Blood Pressure Position Sitting Pulse Oximetry 98 Oxygen Delivery Method Room Air Sepsis Recent Fever Within 48 Hours No Sepsis New/Unexplained Change in Mental Status No Sepsis Action Taken by Nursing No Action Required Home Medications Current Medication List: was personally reviewed by me Laboratory Data Attestation: I reviewed the patient's lab results. 06/04/23 04:35 06/04/23 04:35 Lab Results 06/02/23 Range/Units 13:18 WBC 12.79 H (4.8-10.8) K/ul RBC 4.92 (4.70-6.10) M/uL Hgb 15.0 (14.0-18.0) g/dl Hct 44.5 (42.0-52.0) % MCV 90.4 (80.0-100.0) fL MCH 30.5 (25.0-34.0) pg MCHC 33.7 (32.0-36.0) g/dL RDW Std Deviation 50.6 H (36.4-46.3) fL RDW Coeff of Jay 15.1 H (11.5-14.5) % Plt Count 470 H (130-400) K/uL MPV 9.4 (9.4-12.4) fL Immature Gran % (Auto) 0.6 % Neut % (Auto) 70.6 % Lymph % (Auto) 18.4 % [place] % (Auto) 8.4 % Eos % (Auto) 1.5 % Baso % (Auto) 0.5 % Neut # (Auto) 9.04 H (1.40-6.50) K/uL Lymph # (Auto) 2.35 (1.20-3.40) K/uL [place] # (Auto) 1.07 H (0.11-0.59) K/uL Eos # (Auto) 0.19 (0.00-0.50) K/uL Baso # (Auto) 0.06 (0.00-0.20) K/uL Immature Gran # (Auto) 0.08 (0.01-0.20) K/uL PT 10.1 (9.0-12.0) Seconds INR 0.9 (0.9-1.1) APTT 26 (21-31) Seconds PTT Ratio 0.9 Sodium 140 (136-145) mmol/L Potassium 3.7 (3.5-5.1) mmol/L Chloride 104 (98-107) mmol/L Carbon Dioxide 28 (21-32) mmol/L Anion Gap 8 (3-11) BUN 16 (6-23) mg/dl Creatinine 0.82 (0.6-1.4) mg/dl Est Cr Clr Drug Dosing 100.2 ml/min Est GFR ( Amer) 105.3 ml/min Est GFR (Non-Af Amer) 90.9 ml/min BUN/Creatinine Ratio 19.5 (10-20) Glucose 112 H (70-99(Fasting)) mg/dl Calcium 9.0 (8.6-10.3) mg/dl Magnesium 2.2 (1.7-2.4) mg/dl Total Bilirubin 0.5 (0.2-1.0) mg/dl AST 18 (13-39) U/L ALT 19 (7-52) U/L Alkaline Phosphatase 132 H (34-104) U/L Troponin I High Sens 5.3 (0-20) pg/ml Total Protein 7.0 (6.0-8.3) gm/dl Albumin 4.2 (3.4-5.0) gm/dl Globulin 2.8 (2.5-4.0) gm/dl Albumin/Globulin Ratio 1.5 (0.9-2) Administered Medications Discontinued Medications Amlodipine Besylate (Amlodipine Besylate 5 Mg Tab) 2.5 mg PO [facility] Stop: 07/03/23 16:59 Last Admin: 06/04/23 08:56 Dose: 2.5 mg Documented By: Admin: 06/03/23 17:58 Dose: 2.5 mg Documented By: MELANIE Aspirin (Aspirin Chew 324 Mg) 324 mg PO NOW ONE Stop: 06/02/23 22:01 Last Admin: 06/02/23 22:20 Dose: 324 mg Documented By: Dat Aspirin (Aspirin 81 Mg Ectab) 81 mg PO [facility] Stop: 07/03/23 08:59 Last Admin: 06/04/23 08:24 Dose: 81 mg Documented By: Admin: 06/03/23 08:28 Dose: 81 mg Documented By: MELANIE Atorvastatin Calcium (Atorvastatin 40 Mg Tab) 40 mg PO [facility] Stop: 07/02/23 21:46 Last Admin: 06/03/23 21:21 Dose: 40 mg Documented By: Admin: 06/02/23 22:22 Dose: 40 mg Documented By: LILLIAM Escitalopram Oxalate (Escitalopram Oxalate 10 Mg Tab) [facility] [place] Stop: 07/03/23 08:59 Last Admin: 06/04/23 08:24 Dose: 10 mg Documented By: Admin: 06/03/23 08:28 Dose: 10 mg Documented By: MELANIE Gabapentin (Gabapentin 300 Mg Cap) 300 mg PO 1400 [facility] Stop: 07/03/23 13:59 Last Admin: 06/04/23 13:35 Dose: 300 mg Documented By: Admin: 06/03/23 13:28 Dose: 300 mg Documented By: MELANIE Gabapentin (Gabapentin 300 Mg Cap) 600 mg PO HS [facility] Stop: 07/02/23 21:59 Last Admin: 06/03/23 21:20 Dose: 600 mg Documented By: Admin: 06/02/23 22:22 Dose: 600 mg Documented By: LILLIAM Ioversol (Optiray 320 125ml) 120 ml IV ONCE ONE Stop: 06/02/23 14:31 Last Admin: 06/02/23 14:24 Dose: 120 ml Documented By: YANIRA Lisinopril (Lisinopril 20 Mg Tab) 20 mg PO DAILY [facility] Stop: 07/03/23 08:59 Last Admin: 06/04/23 08:24 Dose: 20 mg Documented By: Admin: 06/03/23 08:28 Dose: 20 mg Documented By: MELANIE Lorazepam (Lorazepam 1 Mg/1 Ml Syr Ed Inj Use) 1 mg IV ONE STA Stop: 06/02/23 13:49 Last Admin: 06/02/23 14:17 Dose: 1 mg Documented By: JUSTO Metoprolol Succinate (Metoprolol Succ 50mg Ext Rel Tab) 50 mg PO [facility] Stop: 07/02/23 21:46 Last Admin: 06/03/23 21:20 Dose: 50 mg Documented By: Admin: 06/02/23 22:22 Dose: 50 mg Documented By: LILLIAM Ondansetron HCl (Ondansetron Inj 2 Mg/Ml 2 Ml Vial) 4 mg IV NOW STA Stop: 06/02/23 16:44 Last Admin: 06/02/23 16:58 Dose: 4 mg Documented By: JUSTO Ondansetron HCl (Ondansetron Inj 2 Mg/Ml 2 Ml Vial) 4 mg IV Q6H PRN PRN Reason: Nausea Stop: 07/02/23 21:46 Last Admin: 06/03/23 10:25 Dose: 4 mg Documented By: MELANIE Spironolactone (Spironolactone 25 Mg Tab) [facility] [place] Stop: 07/03/23 08:59 Last Admin: 06/04/23 08:24 Dose: 50 mg Documented By: Admin: 06/03/23 08:28 Dose: 50 mg Documented By: MELANIE Tizanidine HCl (Tizanidine Hcl 4 Mg Tablet) 4 mg PO Q6H PRN PRN Reason: Muscle Spasm Stop: 07/02/23 21:46 Last Admin: 06/02/23 22:21 Dose: 4 mg Documented By: LILLIAM Tramadol HCl (Tramadol Hcl 50 Mg Tablet) 50 mg PO NOW STA Stop: 06/02/23 16:44 Last Admin: 06/02/23 16:58 Dose: 50 mg Documented By: JUSTO Tramadol HCl (Tramadol Hcl 50 Mg Tablet) 50 mg PO Q6H PRN PRN Reason: Mod-Sev Pain (Scale 4-10) Stop: 07/02/23 21:46 Last Admin: 06/04/23 11:19 Dose: 50 mg Documented By: Admin: 06/04/23 05:02 Dose: 50 mg Documented By: Admin: 06/03/23 22:55 Dose: 50 mg Documented By: Admin: 06/03/23 17:11 Dose: 50 mg Documented By: Admin: 06/03/23 10:24 Dose: 50 mg Documented By: Admin: 06/03/23 04:34 Dose: 50 mg Documented By: Admin: 06/02/23 22:20 Dose: 50 mg Documented By: LILLIAM Imaging Data Radiologist's Impression: Head CT 12/15/23 13:[address] OF THE BRAIN; CT ANGIOGRAM OF THE BRAIN; CT ANGIOGRAM OF THE NECK CLINICAL HISTORY: Neurological deficit. Stroke like symptoms. COMPARISON STUDY: CT of the brain dated 03/29/2023. TECHNIQUE: Unenhanced axial CT scan of the brain is performed. Subsequently, following the IV administration of 119 of Optiray 320, CT angiogram of the head and neck was performed from the aortic arch to the vertex. Images are reviewed in the axial, sagittal, and coronal planes. 3-D MIPS images are created and assessed. IV contrast was administered without complication. All measurements were calculated based on NASCET criteria. A dose lowering technique was utilized adhering to the principles of ALARA. CT DOSE: 1154.97 mGy.cm FINDINGS: Brain parenchyma: The brain parenchyma is normal in appearance. There is no hemorrhage, mass effect, or evidence of acute territorial ischemia by CT criteria. There is no evidence of enhancing mass lesion on the angiogram phase images. The ventricles, sulci, and cisterns are normal in configuration. Tong- white matter differentiation is preserved. No extra-axial fluid collection is seen. Thoracic aorta: Visualized portions of the thoracic aorta are normal in caliber. The aortic arch demonstrates standard 3-vessel anatomy. Right carotid arterial system: The right common carotid artery is widely patent, as are the right internal and external carotid arteries. Calcified plaque is noted in the carotid bulb. Left carotid arterial system: The left common carotid artery is widely patent, as is the left internal and external carotid arteries. Calcified plaque is noted in the carotid bulb. Vertebral arteries: The vertebral arteries are widely patent bilaterally noting left-sided dominance. Subclavian arteries: Widely patent bilaterally. Intracranial vasculature: There is atherosclerotic calcification of the cavernous carotid arteries. The internal carotid arteries are patent at the skull base, as are the anterior and middle cerebral arteries bilaterally. The vertebrobasilar system and posterior cerebral arteries are widely patent. The left vertebral artery is dominant. There is no aneurysm, high-grade stenosis, or focal vessel cut off seen throughout the intracranial circulation. Jugular veins: Patent bilaterally. Dural sinuses: Patent. Lung apices: Partially visualized upper lobe lung parenchyma appears clear. Soft tissues: The visualized pharyngeal soft tissues are normal in appearance noting angiographic phase technique. The oropharyngeal airway appears widely patent. The salivary and thyroid glands are normal in appearance. No cervical lymphadenopathy is seen. 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 Skeletal structures: The calvarium appears intact. The cervical spine is within normal limits. Orbits: The bony orbits are intact. Orbital contents are normal as visualized. Sinuses and mastoids: The paranasal sinuses are clear. The mastoid air cells are well pneumatized. IMPRESSION: 1. There is no hemorrhage, mass effect, or evidence of acute territorial ischemia by CT criteria. 2. Unremarkable CT angiogram of the brain. 3. Unremarkable CT angiogram of the neck. ACT 112: Negative or not required by law. Electronically signed by: Genaro Schroeder M.D. 06/02/2023 2:41 PM Head CTA 06/02/23 13:[address] OF THE BRAIN; CT ANGIOGRAM OF THE BRAIN; CT ANGIOGRAM OF THE NECK CLINICAL HISTORY: Neurological deficit. Stroke like symptoms. COMPARISON STUDY: CT of the brain dated 03/29/2023. TECHNIQUE: Unenhanced axial CT scan of the brain is performed. Subsequently, following the IV administration of 119 of Optiray 320, CT angiogram of the head and neck was performed from the aortic arch to the vertex. Images are reviewed in the axial, sagittal, and coronal planes. 3-D MIPS images are created and assessed. IV contrast was administered without complication. All measurements were calculated based on NASCET criteria. A dose lowering technique was utilized adhering to the principles of ALARA. CT DOSE: 1154.97 mGy.cm FINDINGS: Brain parenchyma: The brain parenchyma is normal in appearance. There is no hemorrhage, mass effect, or evidence of acute territorial ischemia by CT criteria. There is no evidence of enhancing mass lesion on the angiogram phase images. The ventricles, sulci, and cisterns are normal in configuration. Tong- white matter differentiation is preserved. No extra-axial fluid collection is seen. Thoracic aorta: Visualized portions of the thoracic aorta are normal in caliber. The aortic arch demonstrates standard 3-vessel anatomy. Right carotid arterial system: The right common carotid artery is widely patent, as are the right internal and external carotid arteries. Calcified plaque is noted in the carotid bulb. Left carotid arterial system: The left common carotid artery is widely patent, as is the left internal and external carotid arteries. Calcified plaque is noted in the carotid bulb. Vertebral arteries: The vertebral arteries are widely patent bilaterally noting left-sided dominance. Subclavian arteries: Widely patent bilaterally. Intracranial vasculature: There is atherosclerotic calcification of the cavernous carotid arteries. The internal carotid arteries are patent at the skull base, as are the anterior and middle cerebral arteries bilaterally. The vertebrobasilar system and posterior cerebral arteries are widely patent. The left vertebral artery is dominant. There is no aneurysm, high-grade stenosis, or focal vessel cut off seen throughout the intracranial circulation. Jugular veins: Patent bilaterally. Dural sinuses: Patent. Lung apices: Partially visualized upper lobe lung parenchyma appears clear. Soft tissues: The visualized pharyngeal soft tissues are normal in appearance noting angiographic phase technique. The oropharyngeal airway appears widely patent. The salivary and thyroid glands are normal in appearance. No cervical lymphadenopathy is seen. 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 Skeletal structures: The calvarium appears intact. The cervical spine is within normal limits. Orbits: The bony orbits are intact. Orbital contents are normal as visualized. Sinuses and mastoids: The paranasal sinuses are clear. The mastoid air cells are well pneumatized. IMPRESSION: 1. There is no hemorrhage, mass effect, or evidence of acute territorial ischemia by CT criteria. 2. Unremarkable CT angiogram of the brain. 3. Unremarkable CT angiogram of the neck. ACT 112: Negative or not required by law. Electronically signed by: Genaro Schroeder M.D. 06/02/2023 2:41 PM Neck CTA 06/02/23 13:[address] OF THE BRAIN; CT ANGIOGRAM OF THE BRAIN; CT ANGIOGRAM OF THE NECK CLINICAL HISTORY: Neurological deficit. Stroke like symptoms. COMPARISON STUDY: CT of the brain dated 03/29/2023. TECHNIQUE: Unenhanced axial CT scan of the brain is performed. Subsequently, following the IV administration of 119 of Optiray 320, CT angiogram of the head and neck was performed from the aortic arch to the vertex. Images are reviewed in the axial, sagittal, and coronal planes. 3-D MIPS images are created and assessed. IV contrast was administered without complication. All measurements were calculated based on NASCET criteria. A dose lowering technique was utilized adhering to the principles of ALARA. CT DOSE: 1154.97 mGy.cm FINDINGS: Brain parenchyma: The brain parenchyma is normal in appearance. There is no hemorrhage, mass effect, or evidence of acute territorial ischemia by CT criteria. There is no evidence of enhancing mass lesion on the angiogram phase images. The ventricles, sulci, and cisterns are normal in configuration. Tong- white matter differentiation is preserved. No extra-axial fluid collection is seen. Thoracic aorta: Visualized portions of the thoracic aorta are normal in caliber. The aortic arch demonstrates standard 3-vessel anatomy. Right carotid arterial system: The right common carotid artery is widely patent, as are the right internal and external carotid arteries. Calcified plaque is noted in the carotid bulb. Left carotid arterial system: The left common carotid artery is widely patent, as is the left internal and external carotid arteries. Calcified plaque is noted in the carotid bulb. Vertebral arteries: The vertebral arteries are widely patent bilaterally noting left-sided dominance. Subclavian arteries: Widely patent bilaterally. Intracranial vasculature: There is atherosclerotic calcification of the cavernous carotid arteries. The internal carotid arteries are patent at the skull base, as are the anterior and middle cerebral arteries bilaterally. The vertebrobasilar system and posterior cerebral arteries are widely patent. The left vertebral artery is dominant. There is no aneurysm, high-grade stenosis, or focal vessel cut off seen throughout the intracranial circulation. Jugular veins: Patent bilaterally. Dural sinuses: Patent. Lung apices: Partially visualized upper lobe lung parenchyma appears clear. Soft tissues: The visualized pharyngeal soft tissues are normal in appearance noting angiographic phase technique. The oropharyngeal airway appears widely patent. The salivary and thyroid glands are normal in appearance. No cervical lymphadenopathy is seen. 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 Skeletal structures: The calvarium appears intact. The cervical spine is within normal limits. Orbits: The bony orbits are intact. Orbital contents are normal as visualized. Sinuses and mastoids: The paranasal sinuses are clear. The mastoid air cells are well pneumatized. IMPRESSION: 1. There is no hemorrhage, mass effect, or evidence of acute territorial ischemia by CT criteria. 2. Unremarkable CT angiogram of the brain. 3. Unremarkable CT angiogram of the neck. ACT 112: Negative or not required by law. Electronically signed by: Genaro Schroeder M.D. 06/02/2023 2:41 PM Brain MRI 06/02/23 15:24 Brain MRI WITHOUT CONTRAST HISTORY: L sided transient monocular vision loss TECHNIQUE: Multiplanar multisequence MRI of the brain was performed without the use of contrast. COMPARISON STUDY: Head CT 06/02/2023. FINDINGS: There is no mass, hematoma, midline shift, or acute infarct. The paranasal sinuses are clear. The mastoid air cells are clear. The ventricles and sulci are within normal limits. Scattered foci of T2 hyperintensity seen within the periventricular and subcortical white matter are nonspecific but suggestive of mild microvascular ischemic changes. The major vascular flow voids at the skull base are well-maintained. There is a 2.8 cm posterior midline arachnoid cyst just below the tentorium. This is of doubtful clinical significance. IMPRESSION: No acute intracranial abnormality. Scattered foci of T2 hyperintensity seen within the periventricular and subcortical white matter are nonspecific but favor microvascular ischemic change. ACT 112: Negative or not required by law. Electronically signed by: Dante Cuenca M.D. 06/02/2023 6:43 PM Discharge Plan Visit Data Chief Complaint: Visual Disturbance Stated Complaint: LOST VISION IN LEFT EYE,CHEST HURTS ED Provider: Rudy Meza Discharge Problem: Transient monocular blindness, Visual disturbance of one eye, Hypertension Patient Disposition: Admitted As Inpatient Discharge Instructions Interventions: ED Discharge Assessment Last Done: 06/02/23 20:21 Discharge Problem: Transient monocular blindness Qualifiers: Laterality: left Qualified Code(s): H53.122 - Transient visual loss, left eye Hypertension Qualifiers: Hypertension type: unspecified Qualified Code(s): I10 - Essential (primary) hypertension
[2023-06-02] MEDS ORDERED: LORazepam 1 MG/1 ML SYR ED Inj Use IV STA (13:48)
[2023-06-02 14:18] LABS: Basophils # (auto) 0.06 K/uL (0.00-0.20); Basophils % (auto) 0.5 %; Eosinophils # (auto) 0.19 K/uL (0.00-0.50); Eosinophils % (auto) 1.5 %; Hematocrit (blood only) 44.5 % (42.0-52.0); Immature Granulocytes # (auto) 0.08 K/uL (0.01-0.20); Immature Granulocytes % (auto) 0.6 %; Lymphocytes # (auto) 2.35 K/uL (1.20-3.40); Lymphocytes % (auto) 18.4 %; Mean Corpuscular Hemoglobin 30.5 pg (25.0-34.0); Mean Corpuscular Hgb Conc 33.7 g/dL (32.0-36.0); Mean Corpuscular Volume 90.4 fL (80.0-100.0); Mean Platelet Volume 9.4 fL (9.4-12.4); Monocytes # (auto) 1.07 K/uL (0.11-0.59); Monocytes % (auto) 8.4 %; Neutrophils # (auto) 9.04 K/uL (1.40-6.50); Neutrophils % (auto) 70.6 %; Platelet Count 470 K/uL (130-400); RDW Coefficient of Variation 15.1 % (11.5-14.5); RDW Standard Deviation 50.6 fL (36.4-46.3); Red Blood Count 4.92 M/uL (4.70-6.10); White Blood Count 12.79 K/ul (4.8-10.8)
[2023-06-02 14:21] LABS: Albumin Globulin Ratio 1.5 (0.9-2); Albumin Level 4.2 gm/dl (3.4-5.0); BUN Creatinine Ratio 19.5 (10-20); Bilirubin,Total 0.5 mg/dl (0.2-1.0); Creatinine Clr Calc Pharmacy 100.2 ml/min; Est GFR (African American) 105.3 ml/min; Est GFR (Non-African American) 90.9 ml/min; Globulin 2.8 gm/dl (2.5-4.0); Magnesium 2.2 mg/dl (1.7-2.4); Potassium 3.7 mmol/L (3.5-5.1)
[2023-06-02 14:27] LABS: Troponin I High Sensitivity 5.3 pg/ml (0-20)
[2023-06-02] MEDS ORDERED: OPTIRAY 320 125ml IV ONE (14:30)
--- NOTE | 2023-06-02 14:42 | CT Scan Report ---
UNENHANCED CT OF THE BRAIN; CT ANGIOGRAM OF THE BRAIN; CT ANGIOGRAM OF THE NECK CLINICAL HISTORY: Neurological deficit. Stroke like symptoms. COMPARISON STUDY: CT of the brain dated 03/29/2023. TECHNIQUE: Unenhanced axial CT scan of the brain is performed. Subsequently, following the IV adminis tration of 119 of [address] [address], CT angiogram of the head and neck was performed from the aortic arch t o the vertex. Images are reviewed in the axial, sagittal, and coronal planes. 3-D MIPS images are cre ated and assessed. IV contrast was administered without complication. All measurements were calculate d based on NASCET criteria. A dose lowering technique was utilized adhering to the principles of ALA RA. CT DOSE: 1154.97 mGy.cm FINDINGS: Brain parenchyma: The brain parenchyma is normal in appearance. There is no hemorrhage, mass effect, or evidence of acute territorial ischemia by CT criteria. There is no evidence of enhancing mass lesi on on the angiogram phase images. The ventricles, sulci, and cisterns are normal in configuration. Gr ay-white matter differentiation is preserved. No extra-axial fluid collection is seen. Thoracic aorta: Visualized portions of the thoracic aorta are normal in caliber. The aortic arch demo nstrates standard 3-vessel anatomy. Right carotid arterial system: The right common carotid artery is widely patent, as are the right int ernal and external carotid arteries. Calcified plaque is noted in the carotid bulb. Left carotid arterial system: The left common carotid artery is widely patent, as is the left interna l and external carotid arteries. Calcified plaque is noted in the carotid bulb. Vertebral arteries: The vertebral arteries are widely patent bilaterally noting left-sided dominance. Subclavian arteries: Widely patent bilaterally. Intracranial vasculature: There is atherosclerotic calcification of the cavernous carotid arteries. T he internal carotid arteries are patent at the skull base, as are the anterior and middle cerebral ar teries bilaterally. The vertebrobasilar system and posterior cerebral arteries are widely patent. The left vertebral artery is dominant. There is no aneurysm, high-grade stenosis, or focal vessel cut of f seen throughout the intracranial circulation. Jugular veins: Patent bilaterally. Dural sinuses: Patent. Lung apices: Partially visualized upper lobe lung parenchyma appears clear. Soft tissues: The visualized pharyngeal soft tissues are normal in appearance noting angiographic pha se technique. The oropharyngeal airway appears widely patent. The salivary and thyroid glands are nor mal in appearance. No cervical lymphadenopathy is seen. 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 Skeletal structures: The calvarium appears intact. The cervical spine is within normal limits. Orbits: The bony orbits are intact. Orbital contents are normal as visualized. Sinuses and mastoids: The paranasal sinuses are clear. The mastoid air cells are well pneumatized. IMPRESSION: 1. There is no hemorrhage, mass effect, or evidence of acute territorial ischemia by CT criteria. 2. Unremarkable CT angiogram of the brain. 3. Unremarkable CT angiogram of the neck. ACT 112: Negative or not required by law. Electronically signed by: Genaro Schroeder M.D. 06/02/2023 2:41 PM
[2023-06-02 14:50] LABS: INR 0.9 (0.9-1.1); Partial Thromboplastin Ratio 0.9; Partial Thromboplastin Time 26 Seconds (21-31); Prothrombin Time 10.1 Seconds (9.0-12.0)
[2023-06-02] MEDS ORDERED: ONDANSETRON INJ 2 MG/ML 2 ML VIAL IV STA (16:43)
[2023-06-02] MEDS ORDERED: traMADol HCL 50 MG TABLET PO STA (16:43)
--- NOTE | 2023-06-02 17:21 | History & Physical Report ---
Date of Service June 02, 2023 Assessment & Plan (1) Visual disturbance of one eye: Plan: R/O TIA, CVA, ophthalmic etiology Patient is 67 y/o male with PMH HTN, dyslipidemia, anxiety, chronic back pain presented to ER with complaint of visual loss of left eye today lasted 7-8 minutes around 09:30 today without other associated symptoms. In ER BP 206/143 down to 175/75 without antihypertensive medications intervention, HR 101 down to 78, other vital stable WBC: 12.7, no significant electrolyte abnormality. Initial HS troponin negative CT head:There is no hemorrhage, mass effect, or evidence of acute territorial ischemia by CT criteria. CTA head and neck: Unremarkable CT angiogram of the brain. Unremarkable CT angiogram of the neck. MRI brain: No acute intracranial abnormality. Scattered foci of T2 hyperintensity seen within the periventricular and subcortical white matter are nonspecific but favor microvascular ischemic change. Tele to monitor for arrhythmias Tox screen pending Lipids, A1c, TSH in am Echo Continue atorvastatin Neurology consult. ER physician had spoke with [facility] neurology on-call who had recommended possible telestroke eval, ophthalmology consult. ER physician spoke to on-call ophthalmology, Dr. Rizzo who thought central retinal artery occlusion was less likely Patient without any visual symptoms or other symptoms at this time. NIH: 0. I spoke with [facility] telestroke neurologist on-call Dr Weinstein who suggested no thrombolytics or neuro intervention, less likely suspected vascular event suggested ophthalmology consult. Recommended aspirin 325 mg now followed by 81 mg daily Ophthalmology consult CBC, BMP in a.m. (2) Chest pain: Plan: Reported intermittent episodes of chest pain for years with reported episode earlier today. No current chest pain. HS troponin negative x 2. EKG without acute ST elevation Less likely suspect ACS Echo EKG a.m. May need further outpatient workup (3) Hypertension: Plan: BP is variable in ER. Initial BP 206/143, 175/75 and trended down to 138/95 without intervention Continue lisinopril, metoprolol succinate, spironolactone Patient reports history of uncontrolled hypertension in past and previously was on amlodipine also (4) Hyperlipidemia: Plan: Continue atorvastatin (5) Anxiety: Plan: Continue citalopram (6) Chronic back pain: Plan: Continue tramadol, gabapentin DVT Prophylaxis SCDs Full Code as per discussion with pt Follows with Dr Zamora for routine care Pt was seen and care coordinated with Dr Mercedes. See addendum History of Present Illness Chief Complaint: left eye vision loss Primary Care Provider: Braden Zamora MD Patient is 67 y/o male with PMH HTN, dyslipidemia, depression, anxiety, chronic back pain presented to ER with complaint of visual disturbance today. History obtained from patient as well as inpatient and outpatient chart review. Patient states this morning he woke up and "was feeling off". Patient is unable to f urther clarify. States he called off work and then decided he was going to go into work and states around 930 this morning had sudden loss of vision to left eye described as "things going black". Patient states symptoms lasted 7 to 8 minutes. Denies any associated eye pain, headache or dizziness. Denies any speech changes, facial drooping, extremity weakness, dizziness. Denies any recent head injury or eye injury or discharge. While in ER reports another episode of darkening to left eye that lasted approximately 5 minutes the patient states was not as severe as initial episode, also without any associated symptoms. Patient also reports that he has been experiencing intermittent mid chest discomfort that has been ongoing for the past couple years. Patient states chest pain can occur at rest or with exertion. States usually last several minutes and self resolves. Denies any associated shortness of breath, dizziness, palpitations, nausea, vomiting with this. States had episode of chest discomfort today that was not associated with his vision loss. Patient reports chronic low back pain and takes tramadol daily. Denies fever/chills, diaphoresis, N/V/D/C, neck pain, SOB, orthopnea, palpitations, cough, sore throat, otalgia, rhinorrhea, abdominal pain, extremity weakness, extremity edema, rashes, urinary symptoms. Allergies Allergy/AdvReac Type Severity Reaction Status Date / Time No Known Allergies Allergy Verified 06/02/23 14:47 Home Medications Medication Instructions Recorded Confirmed Type gabapentin 300 mg capsule See Rx Instructions .Route .COMPLEX 06/13/21 06/02/23 History lisinopril 20 mg tablet 20 mg PO DAILY 06/13/21 06/02/23 History escitalopram oxalate 10 mg tablet 10 mg PO QAM 12/04/21 06/02/23 History tramadol 50 mg tablet 50 mg PO Q6H PRN Moderate Pain 10/24/22 06/02/23 History (Scale Score 5-6) atorvastatin 40 mg tablet 40 mg PO HS 03/09/23 06/02/23 History spironolactone 50 mg tablet 50 mg PO QAM 03/09/23 06/02/23 History tizanidine 4 mg tablet 4 mg PO Q6H PRN Muscle Spasm 03/29/23 06/02/23 History albuterol sulfate 90 mcg/actuation 2 puff inhalation Q6H PRN 05/30/23 06/02/23 History aerosol inhaler COUGH/WHEEZING metoprolol succinate 50 mg 50 mg PO HS 05/30/23 06/02/23 History tablet,extended release 24 hr diclofenac sodium 75 mg 75 mg PO BID PRN Pain 06/02/23 06/02/23 History tablet,delayed release Past Med/Surg History Medical History (Updated 06/02/23 @ 20:36 by Gracia Winters PA-C) Anxiety Arthritis Depression stable off meds Cancer BCC (chest, neck, back) s/p excision Hyperlipidemia History of COVID-19 Dx 04/27/20 (report documented in [facility]) > symptoms at time of low grade fever, body aches, elevated BP > symptoms resolved/currently asymptomatic Prostate cancer Lumbar radiculopathy Osteoarthritis Chronic prostatitis History of nocturia Chronic back pain Depression with suicidal ideation Chronic neck pain Hypertension Surgical History History of total right knee replacement (TKR) (~08/2021) [facility] Hx of prostatectomy due to cancer and no chemo/radiation needed History of arthroscopy Right knee History of carpal tunnel release R/L History of tonsillectomy History of total knee arthroplasty Left History of lithotripsy Right ESWL: 05/31/19: LMA#5 at [facility] [place] Family History Father Diabetes Mother Hypertension Sister Cancer Social History Smoking Status: Never smoker Tobacco Type: Cigarettes Second Hand Exposure: No; Do You Dip or Chew Tobacco: No; Hx Alcohol Use: No Hx Substance Use: No Preferred Language: Telugu Communication Ability: Effective Visual Impairment: No Limitations Hearing Ability: Normal Icing Coater Required: No Beliefs That Will Affect Care: None marital status: Current Living Situation: Family Current Living Situation Comment: Lives @ home with son current occupational status: employed How many Children do You have: 3 Feels Safe at Home: Yes Assistive Devices: None Review of Systems Review of Systems: All systems reviewed & are unremarkable except as noted in HPI & below Physical Exam Physical Exam: General: no distress, mildly anxious appearing, WDWN Head: normocephalic, atraumatic Eyes: PERRL, EOM's intact, conjunctiva non-injected, anicteric ENT: normal inspection external ears, nose, mucous membranes moist Neck: supple, trachea midline Lungs: clear, no respiratory distress, no wheezing/rhonchi/rales CV: RRR, no murmur, no pretibial edema Abd: normal BS, soft, non-tender Ext: no cyanosis, no calf tenderness Neuro: A&O x 3, +mildly anxious affect. Visual teixeira intact. PERRL. EOMs intact. No nystagmus. Facial sensation is intact and symmetric. The face is strong and symmetric. Hearing grossly intact, Soft palate elevates symmetrically, no dysarthria. Shoulder shrug intact. Tongue is midline, normal movement, no fasciculations. Muscle tone normal. Strength 5/5 bilateral upper and lower extremities. Skin: warm, dry Results & Data Results & Data Vital Signs (Past 12 Hours) Vital Signs Pulse Pulse Resp BP BP Pulse Ox O2 Del Method 06/02/23 16:35 78 32 H 175/75 H 96 Room Air 06/02/23 16:00 85 19 173/100 H 96 Room Air 06/02/23 15:56 92 H 06/02/23 15:50 85 18 97 06/02/23 15:40 93 H 14 99 06/02/23 15:30 78 18 162/109 H 98 Room Air 06/02/23 15:20 85 19 96 06/02/23 15:10 89 18 98 06/02/23 15:00 91 H 17 164/104 H 97 Room Air 06/02/23 14:50 87 15 98 Room Air 06/02/23 14:48 95 H 16 162/110 H 97 Room Air 06/02/23 14:47 89 12 96 Room Air 06/02/23 14:30 90 11 L 06/02/23 14:10 93 H 19 06/02/23 14:00 94 H 12 170/122 H 98 Room Air 06/02/23 13:50 93 H 14 97 Room Air 06/02/23 13:40 96 H 21 98 Room Air 06/02/23 13:33 96 H 14 98 Room Air 06/02/23 13:07 101 H 20 206/143 H 98 Room Air Laboratory Results Short CBC 06/02/23 Range/Units 13:18 WBC 12.79 H (4.8-10.8) K/ul Hgb 15.0 (14.0-18.0) g/dl Hct 44.5 (42.0-52.0) % Plt Count 470 H (130-400) K/uL BMP 06/02/23 13:18 Sodium 140 Potassium 3.7 Chloride 104 Carbon Dioxide 28 BUN 16 Creatinine 0.82 Glucose 112 H Calcium 9.0 Liver Function 06/02/23 Range/Units 13:18 Total Bilirubin 0.5 (0.2-1.0) mg/dl AST 18 (13-39) U/L ALT 19 (7-52) U/L Alkaline Phosphatase 132 H (34-104) U/L Albumin 4.2 (3.4-5.0) gm/dl Diagnostic Findings Head CT 06/02/23 13:[address] OF THE BRAIN; CT ANGIOGRAM OF THE BRAIN; CT ANGIOGRAM OF THE NECK CLINICAL HISTORY: Neurological deficit. Stroke like symptoms. COMPARISON STUDY: CT of the brain dated 03/29/2023. TECHNIQUE: Unenhanced axial CT scan of the brain is performed. Subsequently, following the IV administration of 119 of Optiray 320, CT angiogram of the head and neck was performed from the aortic arch to the vertex. Images are reviewed in the axial, sagittal, and coronal planes. 3-D MIPS images are created and assessed. IV contrast was administered without complication. All measurements were calculated based on NASCET criteria. A dose lowering technique was utilized adhering to the principles of ALARA. CT DOSE: 1154.97 mGy.cm FINDINGS: Brain parenchyma: The brain parenchyma is normal in appearance. There is no hemorrhage, mass effect, or evidence of acute territorial ischemia by CT criteria. There is no evidence of enhancing mass lesion on the angiogram phase images. The ventricles, sulci, and cisterns are normal in configuration. Tong- white matter differentiation is preserved. No extra-axial fluid collection is seen. Thoracic aorta: Visualized portions of the thoracic aorta are normal in caliber. The aortic arch demonstrates standard 3-vessel anatomy. Right carotid arterial system: The right common carotid artery is widely patent, as are the right internal and external carotid arteries. Calcified plaque is noted in the carotid bulb. Left carotid arterial system: The left common carotid artery is widely patent, as is the left internal and external carotid arteries. Calcified plaque is noted in the carotid bulb. Vertebral arteries: The vertebral arteries are widely patent bilaterally noting left-sided dominance. Subclavian arteries: Widely patent bilaterally. Intracranial vasculature: There is atherosclerotic calcification of the cavernous carotid arteries. The internal carotid arteries are patent at the skull base, as are the anterior and middle cerebral arteries bilaterally. The vertebrobasilar system and posterior cerebral arteries are widely patent. The left vertebral artery is dominant. There is no aneurysm, high-grade stenosis, or focal vessel cut off seen throughout the intracranial circulation. Jugular veins: Patent bilaterally. Dural sinuses: Patent. Lung apices: Partially visualized upper lobe lung parenchyma appears clear. Soft tissues: The visualized pharyngeal soft tissues are normal in appearance noting angiographic phase technique. The oropharyngeal airway appears widely patent. The salivary and thyroid glands are normal in appearance. No cervical lymphadenopathy is seen. 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 Skeletal structures: The calvarium appears intact. The cervical spine is within normal limits. Orbits: The bony orbits are intact. Orbital contents are normal as visualized. Sinuses and mastoids: The paranasal sinuses are clear. The mastoid air cells are well pneumatized. IMPRESSION: 1. There is no hemorrhage, mass effect, or evidence of acute territorial ischemia by CT criteria. 2. Unremarkable CT angiogram of the brain. 3. Unremarkable CT angiogram of the neck. ACT 112: Negative or not required by law. Electronically signed by: Genaro Schroeder M.D. 06/02/2023 2:41 PM Head CTA 06/02/23 13:[address] OF THE BRAIN; CT ANGIOGRAM OF THE BRAIN; CT ANGIOGRAM OF THE NECK CLINICAL HISTORY: Neurological deficit. Stroke like symptoms. COMPARISON STUDY: CT of the brain dated 03/29/2023. TECHNIQUE: Unenhanced axial CT scan of the brain is performed. Subsequently, following the IV administration of 119 of Optiray 320, CT angiogram of the head and neck was performed from the aortic arch to the vertex. Images are reviewed in the axial, sagittal, and coronal planes. 3-D MIPS images are created and assessed. IV contrast was administered without complication. All measurements were calculated based on NASCET criteria. A dose lowering technique was utilized adhering to the principles of ALARA. CT DOSE: 1154.97 mGy.cm FINDINGS: Brain parenchyma: The brain parenchyma is normal in appearance. There is no hemorrhage, mass effect, or evidence of acute territorial ischemia by CT criteria. There is no evidence of enhancing mass lesion on the angiogram phase images. The ventricles, sulci, and cisterns are normal in configuration. Tong- white matter differentiation is preserved. No extra-axial fluid collection is seen. Thoracic aorta: Visualized portions of the thoracic aorta are normal in caliber. The aortic arch demonstrates standard 3-vessel anatomy. Right carotid arterial system: The right common carotid artery is widely patent, as are the right internal and external carotid arteries. Calcified plaque is noted in the carotid bulb. Left carotid arterial system: The left common carotid artery is widely patent, as is the left internal and external carotid arteries. Calcified plaque is noted in the carotid bulb. Vertebral arteries: The vertebral arteries are widely patent bilaterally noting left-sided dominance. Subclavian arteries: Widely patent bilaterally. Intracranial vasculature: There is atherosclerotic calcification of the cavernous carotid arteries. The internal carotid arteries are patent at the skull base, as are the anterior and middle cerebral arteries bilaterally. The vertebrobasilar system and posterior cerebral arteries are widely patent. The left vertebral artery is dominant. There is no aneurysm, high-grade stenosis, or focal vessel cut off seen throughout the intracranial circulation. Jugular veins: Patent bilaterally. Dural sinuses: Patent. Lung apices: Partially visualized upper lobe lung parenchyma appears clear. Soft tissues: The visualized pharyngeal soft tissues are normal in appearance noting angiographic phase technique. The oropharyngeal airway appears widely patent. The salivary and thyroid glands are normal in appearance. No cervical lymphadenopathy is seen. 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 Skeletal structures: The calvarium appears intact. The cervical spine is within normal limits. Orbits: The bony orbits are intact. Orbital contents are normal as visualized. Sinuses and mastoids: The paranasal sinuses are clear. The mastoid air cells are well pneumatized. IMPRESSION: 1. There is no hemorrhage, mass effect, or evidence of acute territorial ischemia by CT criteria. 2. Unremarkable CT angiogram of the brain. 3. Unremarkable CT angiogram of the neck. ACT 112: Negative or not required by law. Electronically signed by: Genaro Schroeder M.D. 06/02/2023 2:41 PM Neck CTA 06/02/23 13:[address] OF THE BRAIN; CT ANGIOGRAM OF THE BRAIN; CT ANGIOGRAM OF THE NECK CLINICAL HISTORY: Neurological deficit. Stroke like symptoms. COMPARISON STUDY: CT of the brain dated 03/29/2023. TECHNIQUE: Unenhanced axial CT scan of the brain is performed. Subsequently, following the IV administration of 119 of Optiray 320, CT angiogram of the head and neck was performed from the aortic arch to the vertex. Images are reviewed in the axial, sagittal, and coronal planes. 3-D MIPS images are created and assessed. IV contrast was administered without complication. All measurements were calculated based on NASCET criteria. A dose lowering technique was utilized adhering to the principles of ALARA. CT DOSE: 1154.97 mGy.cm FINDINGS: Brain parenchyma: The brain parenchyma is normal in appearance. There is no hemorrhage, mass effect, or evidence of acute territorial ischemia by CT criteria. There is no evidence of enhancing mass lesion on the angiogram phase images. The ventricles, sulci, and cisterns are normal in configuration. Tong- white matter differentiation is preserved. No extra-axial fluid collection is seen. Thoracic aorta: Visualized portions of the thoracic aorta are normal in caliber. The aortic arch demonstrates standard 3-vessel anatomy. Right carotid arterial system: The right common carotid artery is widely patent, as are the right internal and external carotid arteries. Calcified plaque is noted in the carotid bulb. Left carotid arterial system: The left common carotid artery is widely patent, as is the left internal and external carotid arteries. Calcified plaque is noted in the carotid bulb. Vertebral arteries: The vertebral arteries are widely patent bilaterally noting left-sided dominance. Subclavian arteries: Widely patent bilaterally. Intracranial vasculature: There is atherosclerotic calcification of the cavernous carotid arteries. The internal carotid arteries are patent at the skull base, as are the anterior and middle cerebral arteries bilaterally. The vertebrobasilar system and posterior cerebral arteries are widely patent. The left vertebral artery is dominant. There is no aneurysm, high-grade stenosis, or focal vessel cut off seen throughout the intracranial circulation. Jugular veins: Patent bilaterally. Dural sinuses: Patent. Lung apices: Partially visualized upper lobe lung parenchyma appears clear. Soft tissues: The visualized pharyngeal soft tissues are normal in appearance noting angiographic phase technique. The oropharyngeal airway appears widely patent. The salivary and thyroid glands are normal in appearance. No cervical lymphadenopathy is seen. 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 Skeletal structures: The calvarium appears intact. The cervical spine is within normal limits. Orbits: The bony orbits are intact. Orbital contents are normal as visualized. Sinuses and mastoids: The paranasal sinuses are clear. The mastoid air cells are well pneumatized. IMPRESSION: 1. There is no hemorrhage, mass effect, or evidence of acute territorial ischemia by CT criteria. 2. Unremarkable CT angiogram of the brain. 3. Unremarkable CT angiogram of the neck. ACT 112: Negative or not required by law. Electronically signed by: Genaro Schroeder M.D. 06/02/2023 2:41 PM Brain MRI 06/02/23 15:24 Brain MRI WITHOUT CONTRAST HISTORY: L sided transient monocular vision loss TECHNIQUE: Multiplanar multisequence MRI of the brain was performed without the use of contrast. COMPARISON STUDY: Head CT 06/02/2023. FINDINGS: There is no mass, hematoma, midline shift, or acute infarct. The paranasal sinuses are clear. The mastoid air cells are clear. The ventricles and sulci are within normal limits. Scattered foci of T2 hyperintensity seen within the periventricular and subcortical white matter are nonspecific but suggestive of mild microvascular ischemic changes. The major vascular flow voids at the skull base are well-maintained. There is a 2.8 cm posterior midline arachnoid cyst just below the tentorium. This is of doubtful clinical significance. IMPRESSION: No acute intracranial abnormality. Scattered foci of T2 hyperintensity seen within the periventricular and subcortical white matter are nonspecific but favor microvascular ischemic change. ACT 112: Negative or not required by law. Electronically signed by: Dante Cuenca M.D. 06/02/2023 6:43 PM ECG Additional Comments: Sinus rhythm, rate 86 PVCs, no ST elevation per my interpretation Supervising Physician Co-Signing Physician Notes Care coordinated with Gracia Winters PA-C. Agree with above note. Patient seen and examined. Please refer to her notes for full details. Vital signs reviewed. Physical exam: General exam: Alert and oriented. Not in acute distress. CVS: S1 and S2 heard, regular rate and rhythm, no murmurs. RS: Clear to auscultation, no wheezing or crackles. ABD: Soft, bowel sounds present, nontender, no distention. SERVER ADMINISTRATOR: alert and Oriented.EOMI, Vision all visual teixeira b/l vision ok. Power 5/5 in all extremities, co ordniation of movements normal. No pronator drift. sensations intact. EXT: No edema, no erythema. Labs: Reviewed. Assessment and plan: 67-year-old male with past medical history significant for hypertension, hyperlipidemia, anxiety, chronic back pain presents with a transient vision loss in left eye for about 10 minutes around 9:30 AM. In the irregular episode in the ER around 3 PM but with less intensity/for 5 minutes as per the patient. Also complains of an episode of chest pain today lasted for few minutes. Currently resting comfortable hemodynamic stable. Transient left eye vision loss Initial workup with CT head CTA head and neck and MRI head unremarkable Neurology recommended aspirin for now. 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 Hypertension Continue home medications for now IV labetalol as needed Monitor and adjust meds Follow echo Chest pain Last for few minutes today 2 sets of troponin and EKG okay Will follow serial enzymes and echo Close monitor Other diagnosis and plan of care as per Gracia Winters PA-C. . Will jimenez MD.
--- NOTE | 2023-06-02 18:45 | Magnetic Resonance Report ---
Brain MRI WITHOUT CONTRAST HISTORY: L sided transient monocular vision loss TECHNIQUE: Multiplanar multisequence MRI of the brain was performed without the use of contrast. COMPARISON STUDY: Head CT 06/02/2023. FINDINGS: There is no mass, hematoma, midline shift, or acute infarct. The paranasal sinuses are sebastian r. The mastoid air cells are clear. The ventricles and sulci are within normal limits. Scattered foci of T2 hyperintensity seen within the periventricular and subcortical white matter are nonspecific bu t suggestive of mild microvascular ischemic changes. The major vascular flow voids at the skull base are well-maintained. There is a 2.8 cm posterior midline arachnoid cyst just below the tentorium. Thi s is of doubtful clinical significance. IMPRESSION: No acute intracranial abnormality. Scattered foci of T2 hyperintensity seen within the periventricula r and subcortical white matter are nonspecific but favor microvascular ischemic change. ACT 112: Negative or not required by law. Electronically signed by: Dante Cuenca M.D. 06/02/2023 6:43 PM
[2023-06-02] MEDS ORDERED: ACETAMINOPHEN 325 MG TAB PO PRN (21:47)
[2023-06-02] MEDS ORDERED: ALBUTEROL HFA 8 GM INHALER INH PRN (21:47)
[2023-06-02] MEDS ORDERED: POLYETHYLENE (MIRALAX) 17 GM PACK PO PRN (21:47)
[2023-06-02] MEDS ORDERED: ONDANSETRON INJ 2 MG/ML 2 ML VIAL IV PRN (21:47)
[2023-06-02] MEDS ORDERED: tiZANidine HCL 4 MG TABLET PO PRN (21:47)
[2023-06-02] MEDS ORDERED: PHARMACIST DISCHARGE MED REC CONSULT PRN (21:47)
[2023-06-02] MEDS ORDERED: ASPIRIN CHEW 324 MG PO ONE (22:00)
[2023-06-02] MEDS ORDERED: LABETALOL HCL IV 5 MG/ML 20ML IV PRN (22:11)
[2023-06-02] MEDS: traMADol HCL 50 MG TABLET PO PRN (22:20)
[2023-06-02] MEDS: ATORVASTATIN 40 MG TAB PO SCH (22:22)
[2023-06-02] MEDS: METOPROLOL SUCC 50MG EXT REL TAB PO SCH (22:22)
[2023-06-02] MEDS: GABAPENTIN 300 MG CAP PO SCH (22:22)
[2023-06-02 23:10] LABS: Amphetamines+Metham, Urine Neg (Neg); Barbiturates, Urine Neg (Neg); Benzodiazepine, Urine Neg (Neg); Cocaine, Urine Neg (Neg); MDMA (Ecstacy), Urine Neg (Neg); Marijuana, Urine Pos (Neg); Methadone, Urine Neg (Neg); Opiate, Urine Neg (Neg); Phencyclidine, Urine Neg (Neg)
[2023-06-03] MEDS: traMADol HCL 50 MG TABLET PO PRN ×4 (04:34→22:55)
[2023-06-03 05:32] LABS: Basophils # (auto) 0.05 K/uL (0.00-0.20); Basophils % (auto) 0.5 %; Eosinophils # (auto) 0.23 K/uL (0.00-0.50); Eosinophils % (auto) 2.3 %; Hematocrit (blood only) 43.7 % (42.0-52.0); Hemoglobin 14.3 g/dl (14.0-18.0); Immature Granulocytes # (auto) 0.06 K/uL (0.01-0.20); Immature Granulocytes % (auto) 0.6 %; Lymphocytes # (auto) 2.96 K/uL (1.20-3.40); Mean Corpuscular Hemoglobin 29.9 pg (25.0-34.0); Mean Corpuscular Hgb Conc 32.7 g/dL (32.0-36.0); Mean Corpuscular Volume 91.4 fL (80.0-100.0); Mean Platelet Volume 9.1 fL (9.4-12.4); Monocytes # (auto) 1.04 K/uL (0.11-0.59); Monocytes % (auto) 10.5 %; Neutrophils # (auto) 5.52 K/uL (1.40-6.50); Neutrophils % (auto) 56.1 %; Platelet Count 399 K/uL (130-400); RDW Coefficient of Variation 15.1 % (11.5-14.5); RDW Standard Deviation 50.8 fL (36.4-46.3); Red Blood Count 4.78 M/uL (4.70-6.10); White Blood Count 9.86 K/ul (4.8-10.8)
[2023-06-03 05:50] LABS: Calcium 8.8 mg/dl (8.6-10.3); Creatinine Clr Calc Pharmacy 97.8 ml/min; Est GFR (African American) 104.3 ml/min; Potassium 3.9 mmol/L (3.5-5.1)
[2023-06-03 05:57] LABS: Troponin I High Sensitivity 4.8 pg/ml (0-20)
[2023-06-03 06:06] LABS: Thyroid Stimulating Hormone 1.784 uIu/ml (0.300-4.500)
[2023-06-03 07:14] LABS: Estimated Average Glucose 126 mg/dl
--- NOTE | 2023-06-03 07:52 | Electrocardiogram Report ---
Test Reason : Blood Pressure : / mmHG Vent. Rate : 086 BPM Atrial Rate : 086 BPM P-R Int : 144 ms QRS Dur : 084 ms QT Int : 376 ms P-R-T Axes : 069 055 059 degrees QTc Int : 449 ms Poor data quality, interpretation may be adversely affected Sinus rhythm with frequent Premature ventricular complexes Otherwise normal ECG When compared with ECG of 28-DEC-2022 14:54, No significant change was found Confirmed by Fer Gonzalez ([id number]) on 06/03/2023 7:52:36 AM Referred By: REFERRED SELF Confirmed By:Fer Gonzalez
[2023-06-03] MEDS: lisinopril 20 MG TAB PO SCH (08:28)
[2023-06-03] MEDS: SPIRONOLACTONE 25 MG TAB PO SCH (08:28)
[2023-06-03] MEDS: ESCITALOPRAM OXALATE 10 MG TAB PO SCH (08:28)
[2023-06-03] MEDS: ASPIRIN 81 MG ECTAB PO SCH (08:28)
[2023-06-03] MEDS: GABAPENTIN 300 MG CAP PO SCH ×2 (13:28→21:20)
--- NOTE | 2023-06-03 15:28 | Neurology Consultation ---
Date of Consultation June 03, 2023 Assessment & Plan (1) Transient monocular blindness: Plan 67 y/o male with history of HTN, HLD, anxiety, and chronic back pain that presented following an episode of transient monocular vision loss on the left, concerning for amaurosis fugax. MRI brain with no acute intracranial findings and CTA did not demonstrate any hemodynamically significant stenosis or occlusion. Recommend opthalmology evaluation. 1. Continue aspirin 81 mg 2. Atorvastatin 80 mg 3. CRP, ESR 4. Neurochecks [address]/PT/OT 6. Telemetry 7. Zio patch on discharge 8. Opthalmology consultation Telehealth Consultation Telehealth Information Telehealth Information: I performed this visit using a real-time telehealth connection between my location and the patients location ([facility]). After connecting through interactive tele-video, patient was identified by name and date of and/or wristband check.Patient (or authorized healthcare patient account representative) was informed that this was a telemedicine visit and it was being conducted confidentially over secure lines. My office door was closed and no one else was present in the room with me.Patient (or authorized healthcare patient account representative) provided consent to proceed with the visit, expressed an understanding of privacy and security of the telemedicine visit, and gave permission to have a hospital patient account representative in the room in order to assist with the visit and to conduct portions of the visit, as needed. I informed the patient (or authorized healthcare patient account representative) that I reviewed their record and presented the opportunity for them to ask any questions regarding the visit today. The patient agreed to participate. History of Present Illness Reason for Consultation: visual distubance Requesting Physician: Gracia Winters PA-C Attending Physician: Payam Fisher MD History of Present Illness 67 y/o male that presented with visual disturbance. He states that on the morning of presentation he woke up around 530 am and his back was very sore. He states that he had back surgery in October and still has had some residual back pain. He initially called into work but then decided to go in later. Then after arrivingat work, he started to become tired and just not feel well. He left work and after he got on the highway, he started to experience visual disturbance which he describes as curtain closing over his left eye. He states that his vision seemed to go nearly completely out. He states that when he covered his left eye, his vision appeared to be normal. This lasted for about 10 minutes. He was encouraged by family to come to the ED for evaluation after he got home. He denies any similar episodes. He also denies any pain with eye movement, weakness, numbness/tingling, change in speech, gait impairment, dizziness, or room spinning sensation. After being in the emergency department for about 40-45 minutes, he had a second episode of curtain closing that lasted only 5 minutes and did not seem to be as severe. His blood pressure was elevated in the ED, and he states that he sometimes forgets to take his medications. Allergies Allergy/AdvReac Type Severity Reaction Status Date / Time No Known Allergies Allergy Verified 06/02/23 14:47 Home Medications Medication Instructions Recorded Confirmed Type gabapentin 300 mg capsule See Rx Instructions .Route .COMPLEX 06/13/21 06/02/23 History lisinopril 20 mg tablet 20 mg PO DAILY 06/13/21 06/02/23 History escitalopram oxalate 10 mg tablet 10 mg PO QAM 12/04/21 06/02/23 History tramadol 50 mg tablet 50 mg PO Q6H PRN Moderate Pain 10/24/22 06/02/23 History (Scale Score 5-6) atorvastatin 40 mg tablet 40 mg PO HS 03/09/23 06/02/23 History spironolactone 50 mg tablet 50 mg PO QAM 03/09/23 06/02/23 History tizanidine 4 mg tablet 4 mg PO Q6H PRN Muscle Spasm 03/29/23 06/02/23 History albuterol sulfate 90 mcg/actuation 2 puff inhalation Q6H PRN 05/30/23 06/02/23 History aerosol inhaler COUGH/WHEEZING metoprolol succinate 50 mg 50 mg PO HS 05/30/23 06/02/23 History tablet,extended release 24 hr diclofenac sodium 75 mg 75 mg PO BID PRN Pain 06/02/23 06/02/23 History tablet,delayed release Patient History Medical History (Updated 06/03/23 @ 16:10 by Sonia Dailey MD) Anxiety Arthritis Depression stable off meds Cancer BCC (chest, neck, back) s/p excision Hyperlipidemia History of COVID-19 Dx 04/27/20 (report documented in [facility]) > symptoms at time of low grade fever, body aches, elevated BP > symptoms resolved/currently asymptomatic Prostate cancer Lumbar radiculopathy Osteoarthritis Chronic prostatitis History of nocturia Chronic back pain Depression with suicidal ideation Chronic neck pain Hypertension Surgical History History of total right knee replacement (TKR) (~08/2021) [facility] Hx of prostatectomy due to cancer and no chemo/radiation needed History of arthroscopy Right knee History of carpal tunnel release R/L History of tonsillectomy History of total knee arthroplasty Left History of lithotripsy Right ESWL: 05/31/19[place]5 [place] [facility] [place] History Father Diabetes Mother Hypertension Sister Cancer Social History Smoking Status: Never smoker Tobacco Type: Cigarettes Second Hand Exposure: No; Do You Dip or Chew Tobacco: No; Hx Alcohol Use: No Hx Substance Use: No Preferred Language: Pashto Communication Ability: Effective Visual Impairment: No Limitations Hearing Ability: Normal Spindle Plumber Required: No Beliefs That Will Affect Care: None marital status: Current Living Situation: Family Current Living Situation Comment: lives with son Matthew current occupational status: employed How many Children do You have: 3 Other Information That Helps Us Care for You: No Feels Safe at Home: Yes Safety Concerns: Feels Safe At This Time Assistive Devices: None Review of Systems Negative except as listed in HPI Physical Exam AAO X 3 No aphasia or dysarthria VFF EOMI, no nystagmus Facial sensations intact No facial asymmetry Tongue protrudes midline Motor: Moves all four extremities antigravity, no drift Sensation: Decreased to light touch in right lower extremity (chronic ), otherwise intact to light touch Cerebellar: FTN intact Results & Data Vital Signs (Past 12 Hours) Vital Signs Temp Pulse Pulse Resp BP Pulse Ox O2 Del Method 06/03/23 12:07 36.7 C 78 16 155/87 H 93 Room Air 06/03/23 07:54 64 06/03/23 07:46 36.7 C 69 16 159/88 H 93 Room Air 06/03/23 04:02 36.5 C 63 18 157/92 H 96 Room Air Laboratory Results A1C 6.0, LDL 127, TSH 1.784, UDS positive for marijuana, WBC 9.86, HGB 14.3, HCT 43.7, Plts 399, NA 129, Potassium 3.9, Chloride 105, Creatinine 0.84, Glucose 93, Triglycerides 186 Diagnostic Findings CTH/CTA: There is no hemorrhage, mass effect, or evidence of acute territorial ischemia by CT criteria.Unremarkable CT angiogram of the brain. Unremarkable CT angiogram of the neck. MRI Brain:No acute intracranial abnormality. Scattered foci of T2 hyperintensity seen within the periventricular and subcortical white matter are nonspecific but favor microvascular ischemic change. TTE : EF 50-%%, no thrombus, normal left atrium size, no ASD, negative bubble study
--- NOTE | 2023-06-03 16:37 | Hospitalist Progress Note ---
Date of Service June 03, 2023 Assessment & Plan (1) Visual disturbance of one eye: Plan: Patient is 67 y/o male with PMH HTN, dyslipidemia, anxiety, chronic back pain presented to ER with complaint of visual loss of left eye today lasted 7-8 minutes around 09:30 today without other associated symptoms. Transient monocular blindness DD: TIA Vs amaurosis fugax --MRI Brain:No acute intracranial abnormality. Scattered foci of T2 hyperintensity seen within the periventricular and subcortical white matter are nonspecific but favor microvascular ischemic change. --Neck/Head CTA:There is no hemorrhage, mass effect, or evidence of acute territorial ischemia by CT criteria. Unremarkable CT angiogram of the brain. Unremarkable CT angiogram of the neck. --ECHO:EF 50-55%. NO LV segmental wall motion abnormalities. Moderate concentric LVH with grade 1 diastolic dysfunction. Negative bubble study --Tox Screen Positive: +Marijuana (off note: Patient denies drug use) --Lipid Panel: Triglycerides 186, total cholesterol 218, LDL 157 -- HbA1c 6.0 Started on aspirin 81 mg daily Continue statin Appreciate neurology input Needs ZIO monitor as outpatient Ophthalmology consult pending Continue Neurochecks (2) Chest pain: Plan: Reported intermittent episodes of chest pain for years Normal TSH Troponin negative Echo showed no wall motion abnormality Monitor for any arrhythmias Further workup as outpatient (3) Hypertension: Plan: H/O uncontrolled hypertension in past and previously was on amlodipine also Continue lisinopril, metoprolol succinate, spironolactone Added amlodipine Advised healthy lifestyle changes (4) Hyperlipidemia: Plan: Continue atorvastatin (5) Anxiety: Plan: Continue citalopram (6) Chronic back pain: Plan: Continue tramadol, gabapentin DVT Px SCDs for now Code Status Full Code Admission and Anticipated Discharge Date Admission Date: June 02, 2023 Subjective Patient is seen and examined at bedside Left visual symptoms resolved Reports chronic neck pain Denies any chest pain, dyspnea, dizziness, nausea, vomiting, abdominal pain, focal weakness, numbness, tingling No other complaints Review of Systems Review of Systems: All systems reviewed & are unremarkable except as noted in Subjective Physical Exam Physical Exam: Physical Exam: Vitals signs as noted above General Appearance:Moderately built and nourished, no apparent distress Head: normocephalic, Atraumatic Eyes: normal inspection, EOMI Neck: supple, Trachea midline Respiratory/Chest: Normal breath sounds, CTA, No accessory muscle use Cardiovascular: S1, S2, No murmur Abdomen/GI:Soft, Non tender, Bowel sounds present Extremities/Musculoskeletal:normal inspection, no edema Neurologic/Psych:AAOX3, grossly no focal neurological deficits Skin: normal color, warm Results & Data Results & Data Vital Signs (Past 12 Hours) Vital Signs Temp Pulse Pulse Resp BP Pulse Ox O2 Del Method 06/03/23 16: 36.7 C 81 16 158/94 H 95 Room Air 06/03/23 15:35 75 06/03/23 12:07 36.7 C 78 16 155/87 H 93 Room Air 06/03/23 07:54 64 06/03/23 07:46 36.7 C 69 16 159/88 H 93 Room Air Laboratory Results Short CBC 06/03/23 Range/Units 05:07 WBC 9.86 (4.8-10.8) K/ul Hgb 14.3 (14.0-18.0) g/dl Hct 43.7 (42.0-52.0) % Plt Count 399 (130-400) K/uL [facility] 06/03/23 05:07 Sodium 139 Potassium 3.9 Chloride 105 Carbon Dioxide 28 BUN 16 Creatinine 0.84 Glucose 93 Calcium 8.8
[2023-06-03] MEDS: amLODIPine BESYLATE 5 MG TAB PO SCH (17:58)
[2023-06-03] MEDS: METOPROLOL SUCC 50MG EXT REL TAB PO SCH (21:20)
[2023-06-03] MEDS: ATORVASTATIN 40 MG TAB PO SCH (21:21)
[2023-06-04 04:59] LABS: Hematocrit (blood only) 43.6 % (42.0-52.0); Hemoglobin 14.2 g/dl (14.0-18.0); Mean Corpuscular Hemoglobin 30.2 pg (25.0-34.0); Mean Corpuscular Hgb Conc 32.6 g/dL (32.0-36.0); Mean Corpuscular Volume 92.8 fL (80.0-100.0); Platelet Count 395 K/uL (130-400); RDW Standard Deviation 51.7 fL (36.4-46.3); White Blood Count 8.97 K/ul (4.8-10.8)
[2023-06-04] MEDS: traMADol HCL 50 MG TABLET PO PRN ×2 (05:02→11:19)
[2023-06-04 05:17] LABS: BUN Creatinine Ratio 22.9 (10-20); Calcium 8.8 mg/dl (8.6-10.3); Creatinine Clr Calc Pharmacy 85.9 ml/min; Est GFR (African American) 93.8 ml/min; Est GFR (Non-African American) 80.9 ml/min; Magnesium 2.2 mg/dl (1.7-2.4); Potassium 4.1 mmol/L (3.5-5.1)
[2023-06-04] MEDS: SPIRONOLACTONE 25 MG TAB PO SCH (08:24)
[2023-06-04] MEDS: ASPIRIN 81 MG ECTAB PO SCH (08:24)
[2023-06-04] MEDS: ESCITALOPRAM OXALATE 10 MG TAB PO SCH (08:24)
[2023-06-04] MEDS: lisinopril 20 MG TAB PO SCH (08:24)
[2023-06-04] MEDS: amLODIPine BESYLATE 5 MG TAB PO SCH (08:56)
--- NOTE | 2023-06-04 11:22 | Pharmacy Report ---
- Date of Service June 04, 2023 - Pharmacy CVA/TIA Medication Review Medications to Prevent Stroke handout has been added to the patients discharge packet. Antiplatelet(s) * Aspirin 81 mg PO daily Cholesterol * High intensity statin: atorvastatin 80 mg daily DVT Prophylaxis * SCD knee Therapeutic Anticoagulation * No history of Afib/Aflutter noted Type 2 Diabetes * Patient has pre-diabetes, but per Dr. Fisher, a diabetes medication with proven CVD benefit will be deferred to their outpatient provider due to familiarity with risks/benefits of such therapies. "Medications to prevent stroke" handout has already been added to the patient's discharge packet, which instructs the patient to follow up with their outpatient provider to evaluate which diabetes medication with proven CVD benefit is best for them
--- NOTE | 2023-06-04 13:15 | Hospitalist Progress Note ---
Date of Service June 04, 2023 Assessment & Plan (1) Visual disturbance of one eye: Plan: Patient is 67 y/o male with PMH HTN, dyslipidemia, anxiety, chronic back pain presented to ER with complaint of visual loss of left eye today lasted 7-8 minutes around 09:30 today without other associated symptoms. Transient monocular blindness DD: TIA Vs amaurosis fugax --MRI Brain:No acute intracranial abnormality. Scattered foci of T2 hyperintensity seen within the periventricular and subcortical white matter are nonspecific but favor microvascular ischemic change. --Neck/Head CTA:There is no hemorrhage, mass effect, or evidence of acute territorial ischemia by CT criteria. Unremarkable CT angiogram of the brain. Unremarkable CT angiogram of the neck. --ECHO:EF 50-55%. NO LV segmental wall motion abnormalities. Moderate concentric LVH with grade 1 diastolic dysfunction. Negative bubble study --Tox Screen Positive: +Marijuana (off note: Patient denies drug use) --Lipid Panel: Triglycerides 186, total cholesterol 218, LDL 157 -- HbA1c 6.0 Started on aspirin 81 mg daily Continue statin--increase to 80 mg daily as recommended by neurology Appreciate neurology input Needs ZIO monitor as outpatient Advised to follow-up with ophthalmology as outpatient Continue Neurochecks Plan to be discharged home today (2) Chest pain: Plan: Reported intermittent episodes of chest pain for years Normal TSH Troponin negative Echo showed no wall motion abnormality Monitor for any arrhythmias May need stress test as outpatient Currently denies any chest pain (3) Hypertension: Plan: H/O uncontrolled hypertension in past and previously was on amlodipine also Continue lisinopril, metoprolol succinate, spironolactone Added amlodipine 5 mg daily Advised healthy lifestyle changes (4) Hyperlipidemia: Plan: Continue atorvastatin (5) Anxiety: Plan: Continue citalopram (6) Chronic back pain: Plan: Continue tramadol, gabapentin DVT Px SCDs for now Code Status Full Code Disposition Home Admission and Anticipated Discharge Date Admission Date: June 02, 2023 Subjective Patient is seen and examined at bedside States feeling well today No recurrence of visual symptoms Denies any chest pain, dyspnea, dizziness, nausea, vomiting, abdominal pain, focal weakness, numbness, tingling Plan to be discharged home today Review of Systems Review of Systems: All systems reviewed & are unremarkable except as noted in Subjective Physical Exam Physical Exam: Physical Exam: Vitals signs as noted above General Appearance:Moderately built and nourished, no apparent distress Head: normocephalic, Atraumatic Eyes: normal inspection, EOMI Neck: supple, Trachea midline Respiratory/Chest: Normal breath sounds, CTA, No accessory muscle use Cardiovascular: S1, S2, No murmur Abdomen/GI:Soft, Non tender, Bowel sounds present Extremities/Musculoskeletal:normal inspection, no edema Neurologic/Psych:AAOX3, grossly no focal neurological deficits Skin: normal color, warm Results & Data Results & Data Vital Signs (Past 12 Hours) Vital Signs Temp Pulse Pulse Resp BP Pulse Ox O2 Del Method 06/04/23 11:28 36.8 C 78 16 153/97 H 94 Room Air 06/04/23 08:01 36.8 C 65 13 169/88 H 94 Room Air 06/04/23 07:37 66 06/04/23 03:20 36.6 C 70 18 147/94 H 94 Room Air Laboratory Results Short CBC 06/04/23 Range/Units 04:35 WBC 8.97 (4.8-10.8) K/ul Hgb 14.2 (14.0-18.0) g/dl Hct 43.6 (42.0-52.0) % Plt Count 395 (130-400) K/uL BMP 06/04/23 04:35 Sodium 139 Potassium 4.1 Chloride 106 Carbon Dioxide 29 BUN 22 Creatinine 0.96 Glucose 91 Calcium 8.8
[2023-06-04] MEDS ORDERED: STROKE PATIENT DISCHARGE STA (13:24)
--- NOTE | 2023-06-04 13:25 | Discharge Summary ---
Date of Service June 04, 2023 Admission HPI Per Admitting Provider Patient is 67 y/o male with PMH HTN, dyslipidemia, depression, anxiety, chronic back pain presented to ER with complaint of visual disturbance today. History obtained from patient as well as inpatient and outpatient chart review. Patient states this morning he woke up and "was feeling off". Patient is unable to further clarify. States he called off work and then decided he was going to go into work and states around 930 this morning had sudden loss of vision to left eye described as "things going black". Patient states symptoms lasted 7 to 8 minutes. Denies any associated eye pain, headache or dizziness. Denies any speech changes, facial drooping, extremity weakness, dizziness. Denies any recent head injury or eye injury or discharge. While in ER reports another episode of darkening to left eye that lasted approximately 5 minutes the patient states was not as severe as initial episode, also without any associated symptoms. Patient also reports that he has been experiencing intermittent mid ch est discomfort that has been ongoing for the past couple years. Patient states chest pain can occur at rest or with exertion. States usually last several minutes and self resolves. Denies any associated shortness of breath, dizziness, palpitations, nausea, vomiting with this. States had episode of chest discomfort today that was not associated with his vision loss. Patient reports chronic low back pain and takes tramadol daily. Denies fever/chills, diaphoresis, N/V/D/C, neck pain, SOB, orthopnea, palpitations, cough, sore throat, otalgia, rhinorrhea, abdominal pain, extremity weakness, extremity edema, rashes, urinary symptoms. Admission Exam Per Admitting Provider General: no distress, mildly anxious appearing, WDWN Head: normocephalic, atraumatic Eyes: PERRL, EOM's intact, conjunctiva non-injected, anicteric ENT: normal inspection external ears, nose, mucous membranes moist Neck: supple, trachea midline Lungs: clear, no respiratory distress, no wheezing/rhonchi/rales CV: RRR, no murmur, no pretibial edema Abd: normal BS, soft, non-tender Ext: no cyanosis, no calf tenderness Neuro: A&O x 3, +mildly anxious affect. Visual teixeira intact. PERRL. EOMs intact. No nystagmus. Facial sensation is intact and symmetric. The face is strong and symmetric. Hearing grossly intact, Soft palate elevates symmetri lou, no dysarthria. Shoulder shrug intact. Tongue is midline, normal movement, no fasciculations. Muscle tone normal. Strength 5/5 bilateral upper and lower extremities. Skin: warm, dry Principal Diagnosis Transient monocular blindness DD: TIA Vs amaurosis fugax Discharge Data Allergies Allergy/AdvReac Type Severity Reaction Status Date / Time No Known Allergies Allergy Verified 06/02/23 14:47 Consultations 06/02/23 15:40 ED Decision to Admit Stat 06/02/23 21:47 Consult Neurology Routine Consult Ophthalmology Routine Procedures Performed Laboratory Results WBC 8.97 K/ul (4.8-10.8) 06/04/23 04:35 RBC 4.70 M/uL (4.70-6.10) 06/04/23 04:35 Hgb 14.2 g/dl (14.0-18.0) 06/04/23 04:35 Hct 43.6 % (42.0-52.0) 06/04/23 04:35 MCV 92.8 fL (80.0-100.0) 06/04/23 04:35 MCH 30.2 pg (25.0-34.0) 06/04/23 04:35 MCHC 32.6 g/dL (32.0-36.0) 06/04/23 04:35 RDW Std Deviation 51.7 fL (36.4-46.3) H 06/04/23 04:35 RDW Coeff of Jay 15.0 % (11.5-14.5) H 06/04/23 04:35 Plt Count 395 K/uL (130-400) 06/04/23 04:35 MPV 9.0 fL (9.4-12.4) L 06/04/23 04:35 Immature Gran % (Auto) 0.6 % 06/03/23 05:07 Neut % (Auto) 56.1 % 06/03/23 05:07 Lymph % (Auto) 30.0 % 06/03/23 05:07 Edgar % (Auto) 10.5 % 06/03/23 05:07 Eos % (Auto) 2.3 % 06/03/23 05:07 Baso % (Auto) 0.5 % 06/03/23 05:07 Neut # (Auto) 5.52 K/uL (1.40-6.50) 06/03/23 05:07 Lymph # (Auto) 2.96 K/uL (1.20-3.40) 06/03/23 05:07 Edgar # (Auto) 1.04 K/uL (0.11-0.59) H 06/03/23 05:07 Eos # (Auto) 0.23 K/uL (0.00-0.50) 06/03/23 05:07 Baso # (Auto) 0.05 K/uL (0.00-0.20) 06/03/23 05:07 Immature Gran # (Auto) 0.06 K/uL (0.01-0.20) 06/03/23 05:07 PT 10.1 Seconds (9.0-12.0) 06/02/23 13:18 INR 0.9 (0.9-1.1) 06/02/23 13:18 APTT 26 Seconds (21-31) 06/02/23 13:18 PTT Ratio 0.9 06/02/23 13:18 Sodium 139 mmol/L (136-145) 06/04/23 04:35 Potassium 4.1 mmol/L (3.5-5.1) 06/04/23 04:35 Chloride 106 mmol/L (98-107) 06/04/23 04:35 Carbon Dioxide 29 mmol/L (21-32) 06/04/23 04:35 Anion Gap 4 (3-11) 06/04/23 04:35 BUN 22 mg/dl (6-23) 06/04/23 04:35 Creatinine 0.96 mg/dl (0.6-1.4) 06/04/23 04:35 Est Cr Clr Drug Dosing 85.9 ml/min 06/04/23 04:35 Est GFR ( Amer) 93.8 ml/min 06/04/23 04:35 Est GFR (Non-Af Amer) 80.9 ml/min 06/04/23 04:35 BUN/Creatinine Ratio 22.9 (10-20) H 06/04/23 04:35 Glucose 91 mg/dl (70-99(Fasting)) 06/04/23 04:35 Estimat Average Glucose 126 mg/dl 06/03/23 05:07 Hemoglobin A1c 6.0 % (4.5-5.6) H 06/03/23 05:07 Calcium 8.8 mg/dl (8.6-10.3) 06/04/23 04:35 Magnesium 2.2 mg/dl (1.7-2.4) 06/04/23 04:35 Total Bilirubin 0.5 mg/dl (0.2-1.0) 06/02/23 13:18 AST 18 U/L (13-39) 06/02/23 13:18 ALT 19 U/L (7-52) 06/02/23 13:18 Alkaline Phosphatase 132 U/L (34-104) H 06/02/23 13:18 Troponin I High Sens 4.8 pg/ml (0-20) 06/03/23 05:07 Total Protein 7.0 gm/dl (6.0-8.3) 06/02/23 13:18 Albumin 4.2 gm/dl (3.4-5.0) 06/02/23 13:18 Globulin 2.8 gm/dl (2.5-4.0) 06/02/23 13:18 Albumin/Globulin Ratio 1.5 (0.9-2) 06/02/23 13:18 Triglycerides 186 mg/dl (0-150) H 06/03/23 05:07 Cholesterol 218 mg/dl (0-200) H 06/03/23 05:07 LDL Cholesterol, Calc 127 mg/dl 06/03/23 05:07 VLDL Cholesterol, Calc 37 mg/dl (0-30) H 06/03/23 05:07 HDL Cholesterol 54 mg/dl 06/03/23 05:07 Cholesterol/HDL Ratio 4.0 (0-5) 06/03/23 05:07 TSH 1.784 uIu/ml (0.300-4.500) 06/03/23 05:07 Urine Opiates Screen Neg (Neg) 06/02/23 22:36 Ur Methadone, Qual Neg (Neg) 06/02/23 22:36 Urine Barbiturates Neg (Neg) 06/02/23 22:36 Ur Phencyclidine (PCP) Neg (Neg) 06/02/23 22:36 U Amphetamin/Meth Scrn Neg (Neg) 06/02/23 22:36 MDMA (Ecstasy) Screen Neg (Neg) 06/02/23 22:36 U Benzodiazepines Scrn Neg (Neg) 06/02/23 22:36 Ur Cocaine Metabolite Neg (Neg) 06/02/23 22:36 U Marijuana (THC) Screen Pos (Neg) H 06/02/23 22:[address] 06/02/23 13:[address] OF THE BRAIN; CT ANGIOGRAM OF THE BRAIN; CT ANGIOGRAM OF THE NECK CLINICAL HISTORY: Neurological deficit. Stroke like symptoms. COMPARISON STUDY: CT of the brain dated 03/29/2023. TECHNIQUE: Unenhanced axial CT scan of the brain is performed. Subsequently, following the IV administration of 119 of Optiray 320, CT angiogram of the head and neck was performed from the aortic arch to the vertex. Images are reviewed in the axial, sagittal, and coronal planes. 3-D MIPS images are created and assessed. IV contrast was administered without complication. All measurements were calculated based on NASCET criteria. A dose lowering technique was utilized adhering to the principles of ALARA. CT DOSE: 1154.97 mGy.cm FINDINGS: Brain parenchyma: The brain parenchyma is normal in appearance. There is no hemorrhage, mass effect, or evidence of acute territorial ischemia by CT criteria. There is no evidence of enhancing mass lesion on the angiogram phase images. The ventricles, sulci, and cisterns are normal in configuration. Tong- white matter differentiation is preserved. No extra-axial fluid collection is seen. Thoracic aorta: Visualized portions of the thoracic aorta are normal in caliber. The aortic arch demonstrates standard 3-vessel anatomy. Right carotid arterial system: The right common carotid artery is widely patent, as are the right internal and external carotid arteries. Calcified plaque is noted in the carotid bulb. Left carotid arterial system: The left common carotid artery is widely patent, as is the left internal and external carotid arteries. Calcified plaque is noted in the carotid bulb. Vertebral arteries: The vertebral arteries are widely patent bilaterally noting left-sided dominance. Subclavian arteries: Widely patent bilaterally. Intracranial vasculature: There is atherosclerotic calcification of the cavernous carotid arteries. The internal carotid arteries are patent at the skull base, as are the anterior and middle cerebral arteries bilaterally. The vertebrobasilar system and posterior cerebral arteries are widely patent. The left vertebral artery is dominant. There is no aneurysm, high-grade stenosis, or focal vessel cut off seen throughout the intracranial circulation. Jugular veins: Patent bilaterally. Dural sinuses: Patent. Lung apices: Partially visualized upper lobe lung parenchyma appears clear. Soft tissues: The visualized pharyngeal soft tissues are normal in appearance noting angiographic phase technique. The oropharyngeal airway appears widely patent. The salivary and thyroid glands are normal in appearance. No cervical lymphadenopathy is seen. 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 Skeletal structures: The calvarium appears intact. The cervical spine is within normal limits. Orbits: The bony orbits are intact. Orbital contents are normal as visualized. Sinuses and mastoids: The paranasal sinuses are clear. The mastoid air cells are well pneumatized. IMPRESSION: 1. There is no hemorrhage, mass effect, or evidence of acute territorial ischemia by CT criteria. 2. Unremarkable CT angiogram of the brain. 3. Unremarkable CT angiogram of the neck. ACT 112: Negative or not required by law. Electronically signed by: Genaro Schroeder M.D. 06/02/2023 2:41 PM Head CTA 06/02/23 13:[address] OF THE BRAIN; CT ANGIOGRAM OF THE BRAIN; CT ANGIOGRAM OF THE NECK CLINICAL HISTORY: Neurological deficit. Stroke like symptoms. COMPARISON STUDY: CT of the brain dated 03/29/2023. TECHNIQUE: Unenhanced axial CT scan of the brain is performed. Subsequently, following the IV administration of 119 of Optiray 320, CT angiogram of the head and neck was performed from the aortic arch to the vertex. Images are reviewed in the axial, sagittal, and coronal planes. 3-D MIPS images are created and assessed. IV contrast was administered without complication. All measurements were calculated based on NASCET criteria. A dose lowering technique was utilized adhering to the principles of ALARA. CT DOSE: 1154.97 mGy.cm FINDINGS: Brain parenchyma: The brain parenchyma is normal in appearance. There is no hemorrhage, mass effect, or evidence of acute territorial ischemia by CT criteria. There is no evidence of enhancing mass lesion on the angiogram phase images. The ventricles, sulci, and cisterns are normal in configuration. Tong- white matter differentiation is preserved. No extra-axial fluid collection is seen. Thoracic aorta: Visualized portions of the thoracic aorta are normal in caliber. The aortic arch demonstrates standard 3-vessel anatomy. Right carotid arterial system: The right common carotid artery is widely patent, as are the right internal and external carotid arteries. Calcified plaque is noted in the carotid bulb. Left carotid arterial system: The left common carotid artery is widely patent, as is the left internal and external carotid arteries. Calcified plaque is noted in the carotid bulb. Vertebral arteries: The vertebral arteries are widely patent bilaterally noting left-sided dominance. Subclavian arteries: Widely patent bilaterally. Intracranial vasculature: There is atherosclerotic calcification of the cavernous carotid arteries. The internal carotid arteries are patent at the skull base, as are the anterior and middle cerebral arteries bilaterally. The vertebrobasilar system and posterior cerebral arteries are widely patent. The left vertebral artery is dominant. There is no aneurysm, high-grade stenosis, or focal vessel cut off seen throughout the intracranial circulation. Jugular veins: Patent bilaterally. Dural sinuses: Patent. Lung apices: Partially visualized upper lobe lung parenchyma appears clear. Soft tissues: The visualized pharyngeal soft tissues are normal in appearance noting angiographic phase technique. The oropharyngeal airway appears widely patent. The salivary and thyroid glands are normal in appearance. No cervical lymphadenopathy is seen. 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 Skeletal structures: The calvarium appears intact. The cervical spine is within normal limits. Orbits: The bony orbits are intact. Orbital contents are normal as visualized. Sinuses and mastoids: The paranasal sinuses are clear. The mastoid air cells are well pneumatized. IMPRESSION: 1. There is no hemorrhage, mass effect, or evidence of acute territorial ischemia by CT criteria. 2. Unremarkable CT angiogram of the brain. 3. Unremarkable CT angiogram of the neck. ACT 112: Negative or not required by law. Electronically signed by: Genaro Schroeder M.D. 06/02/2023 2:41 PM Neck CTA 06/02/23 13:[address] OF THE BRAIN; CT ANGIOGRAM OF THE BRAIN; CT ANGIOGRAM OF THE NECK CLINICAL HISTORY: Neurological deficit. Stroke like symptoms. COMPARISON STUDY: CT of the brain dated 03/29/2023. TECHNIQUE: Unenhanced axial CT scan of the brain is performed. Subsequently, following the IV administration of 119 of Optiray 320, CT angiogram of the head and neck was performed from the aortic arch to the vertex. Images are reviewed in the axial, sagittal, and coronal planes. 3-D MIPS images are created and assessed. IV contrast was administered without complication. All measurements were calculated based on NASCET criteria. A dose lowering technique was utilized adhering to the principles of ALARA. CT DOSE: 1154.97 mGy.cm FINDINGS: Brain parenchyma: The brain parenchyma is normal in appearance. There is no hemorrhage, mass effect, or evidence of acute territorial ischemia by CT criteria. There is no evidence of enhancing mass lesion on the angiogram phase images. The ventricles, sulci, and cisterns are normal in configuration. Tong- white matter differentiation is preserved. No extra-axial fluid collection is seen. Thoracic aorta: Visualized portions of the thoracic aorta are normal in caliber. The aortic arch demonstrates standard 3-vessel anatomy. Right carotid arterial system: The right common carotid artery is widely patent, as are the right internal and external carotid arteries. Calcified plaque is noted in the carotid bulb. Left carotid arterial system: The left common carotid artery is widely patent, as is the left internal and external carotid arteries. Calcified plaque is noted in the carotid bulb. Vertebral arteries: The vertebral arteries are widely patent bilaterally noting left-sided dominance. Subclavian arteries: Widely patent bilaterally. Intracranial vasculature: There is atherosclerotic calcification of the cavernous carotid arteries. The internal carotid arteries are patent at the skull base, as are the anterior and middle cerebral arteries bilaterally. The vertebrobasilar system and posterior cerebral arteries are widely patent. The left vertebral artery is dominant. There is no aneurysm, high-grade stenosis, or focal vessel cut off seen throughout the intracranial circulation. Jugular veins: Patent bilaterally. Dural sinuses: Patent. Lung apices: Partially visualized upper lobe lung parenchyma appears clear. Soft tissues: The visualized pharyngeal soft tissues are normal in appearance noting angiographic phase technique. The oropharyngeal airway appears widely patent. The salivary and thyroid glands are normal in appearance. No cervical lymphadenopathy is seen. 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 Skeletal structures: The calvarium appears intact. The cervical spine is within normal limits. Orbits: The bony orbits are intact. Orbital contents are normal as visualized. Sinuses and mastoids: The paranasal sinuses are clear. The mastoid air cells are well pneumatized. IMPRESSION: 1. There is no hemorrhage, mass effect, or evidence of acute territorial ischemia by CT criteria. 2. Unremarkable CT angiogram of the brain. 3. Unremarkable CT angiogram of the neck. ACT 112: Negative or not required by law. Electronically signed by: Genaro Schroeder M.D. 06/02/2023 2:41 PM Brain MRI 06/02/23 15:24 Brain MRI WITHOUT CONTRAST HISTORY: L sided transient monocular vision loss TECHNIQUE: Multiplanar multisequence MRI of the brain was performed without the use of contrast. COMPARISON STUDY: Head CT 06/02/2023. FINDINGS: There is no mass, hematoma, midline shift, or acute infarct. The paranasal sinuses are clear. The mastoid air cells are clear. The ventricles and sulci are within normal limits. Scattered foci of T2 hyperintensity seen within the periventricular and subcortical white matter are nonspecific but suggestive of mild microvascular ischemic changes. The major vascular flow voids at the skull base are well-maintained. There is a 2.8 cm posterior midline arachnoid cyst just below the tentorium. This is of doubtful clinical significance. IMPRESSION: No acute intracranial abnormality. Scattered foci of T2 hyperintensity seen within the periventricular and subcortical white matter are nonspecific but favor microvascular ischemic change. ACT 112: Negative or not required by law. Electronically signed by: Dante Cuenca M.D. 06/02/2023 6:43 PM Ordered Studies 06/02/23 13:48 CT angio head w con Stat CT angio neck with con Stat CT head/brain wo con Stat 06/02/23 15:24 MR brain wo con Stat Hospital Course (1) Visual disturbance of one eye: Patient is 67 y/o male with PMH HTN, dyslipidemia, anxiety, chronic back pain presented to ER with complaint of visual loss of left eye today lasted 7-8 minutes around 09:30 today without other associated symptoms. Transient monocular blindness DD: TIA Vs amaurosis fugax --MRI Brain:No acute intracranial abnormality. Scattered foci of T2 hyperintensity seen within the periventricular and subcortical white matter are nonspecific but favor microvascular ischemic change. --Neck/Head CTA:There is no hemorrhage, mass effect, or evidence of acute territorial ischemia by CT criteria. Unremarkable CT angiogram of the brain. Unremarkable CT angiogram of the neck. --ECHO:EF 50-55%. NO LV segmental wall motion abnormalities. Moderate concentric LVH with grade 1 diastolic dysfunction. Negative bubble study --Tox Screen Positive: +Marijuana (off note: Patient denies drug use) --Lipid Panel: Triglycerides 186, total cholesterol 218, LDL 157 -- HbA1c 6.0 Started on aspirin 81 mg daily Continue statin--increase to 80 mg daily as recommended by neurology Appreciate neurology input Needs ZIO monitor as outpatient Advised to follow-up with ophthalmology as outpatient Continue Neurochecks Plan to be discharged home today (2) Chest pain: Reported intermittent episodes of chest pain for years Normal TSH Troponin negative Echo showed no wall motion abnormality Monitor for any arrhythmias May need stress test as outpatient Currently denies any chest pain (3) Hypertension: H/O uncontrolled hypertension in past and previously was on amlodipine also Continue lisinopril, metoprolol succinate, spironolactone Added amlodipine 5 mg daily Advised healthy lifestyle changes (4) Hyperlipidemia: Continue atorvastatin (5) Anxiety: Continue citalopram (6) Chronic back pain: Continue tramadol, gabapentin DVT Px SCDs for now Code Status Full Code Disposition Home Total Time Total Time Spent Total Time Spent (In Minutes): 55 minutes Discharge Plan Discharge Items Patient Disposition: Home - Self-Care Reason For Visit: VISUAL DISTURBANCE Discharge Diagnosis: Transient monocular blindness Activity: Per Instructions section Exercise/Sports: Gradually increase as tolerated Non-emergency contact: Primary Care Provider, Neurologist and Counter Waitress/Waiter Call non-emergency contact if: you have any medication questions, your symptoms worsen, your pain is concerning for you and you have a fever Follow-up/Referrals: Braden Zamora MD [Primary Care Provider] - Diet: Heart Healthy Addtl Attending Provider Instructions: Follow-up with your primary care physician Dr. Zamora in 1 week Follow-up with your neurologist Dr.April Dailey in 2-3 weeks Follow-up with your social science research assistant as advised for further evaluation of vision changes ----Discuss with your physician for further assessment of your intermittent chest pain for possible stress test as outpatient --Your neurologist recommends ZIO monitor to rule out any arrhythmias. (Please discuss with your PCP for further instructions) Medication Changes: -- You are started on aspirin 81 mg daily and your Lipitor dose is increased to 80 mg daily as recommended by your neurologist. --Start taking amlodipine 5 mg daily in addition to your other blood pressure medications to better control your blood pressure. --Monitor your blood pressure regularly at home. Discuss with your physician for further adjustment of medications as needed. Seek immediate medical attention if your symptoms reoccur or worsen Please take all medications as instructed on discharge list below. Please call if you have any questions or problems. You can reach a [facility] hospitalist on duty at [facility] 24 hours a day by calling [phone] Risk Factors for Stroke: You can reduce your chances of stroke by working with your medical provider to adopt a healthy lifestyle. Some specific ways to lower your chance of stroke are: * If you are a smoker, now is the time to stop smoking cigarettes * If you are diabetic, improve the control of your blood sugars * Avoid excessive amounts of alcohol * Control high blood pressure * Lose weight if you are overweight * Be sure to lead an active lifestyle * Eat a healthy diet low in salt, cholesterol and fat You should know about other risk factors for stroke that you are unable to control. These include: * Age 55 years or older * Male gender * Certain racial groups: , or / * Family History of Stroke, Mini stroke or Heart Attack * Sickle Cell Disease Follow Up: It is important for you to keep your follow up appointments with your medical provider. Who to Call and When: Medical Emergencies: Call 911 immediately if you experience any of the following warning signs and symptoms of Stroke: * Sudden numbness or weakness of the face, arm or leg, especially on one side of the body * Sudden confusion, trouble speaking or understanding * Sudden trouble seeing in one or both eyes * Sudden trouble walking, dizziness, loss of balance or coordination * Sudden severe headache with no cause Do not delay calling 911 if you experience any warning signs or symptoms of a stroke. Delay in seeking medical attention may affect what treatments can be given to you. . Pending Studies at Discharge: No Stand-Alone Forms: My [facility], Smoking Cessation, Medications to Prevent Stroke Medications and DC Order Prescriptions: New amlodipine [Norvasc] 5 mg Tablet 5 mg PO QAM Qty: 30 0RF aspirin 81 mg Tablet,Delayed Release (Dr/Ec) 81 mg PO QAM Qty: 30 0RF Continued escitalopram oxalate 10 mg tablet 10 mg PO QAM tramadol 50 mg tablet 50 mg PO Q6H PRN (Reason: Moderate Pain (Scale Score 5-6)) tizanidine 4 mg tablet 4 mg PO Q6H PRN (Reason: Muscle Spasm) lisinopril 20 mg tablet 20 mg PO DAILY Rx Instructions: PER [facility]--TAKES PRN IF B/P IS ELEVATED. gabapentin 300 mg capsule See Rx Instructions .ROUTE .COMPLEX Rx Instructions: TAKES 300 MG QAM AND AFTERNOON, THEN 600 MG HS. spironolactone 50 mg tablet 50 mg PO QAM metoprolol succinate 50 mg tablet extended release 24 hr 50 mg PO HS albuterol sulfate 90 mcg/actuation HFA aerosol inhaler 2 puff INHALATION Q6H PRN (Reason: COUGH/WHEEZING) Changed atorvastatin 40 mg tablet 80 mg PO HS Qty: 60 0RF Discontinued diclofenac sodium 75 mg tablet,delayed release (DR/EC) 75 mg PO BID PRN (Reason: Pain) Discharge Orders: Discharge Order (Routine); Ordered 06/04/23 Ordered By: Payam Vicente/Other Patient Handouts: A1C Admission Data Admit Date/Time: 06/02/23 17:57 Attending Provider: Payam Fisher Admit Provider: Will Mercedes Primary Care Provider: Braden Zamora Other Providers: Will Mercedes; AsimSonia; Jose Rizzo
[2023-06-04] MEDS: GABAPENTIN 300 MG CAP PO SCH (13:35)
[2023-06-04] MEDS ORDERED: ATORVASTATIN 40 MG TAB PO SCH (21:00)
--- NOTE | 2023-06-05 05:55 | Electrocardiogram Report ---
Test Reason : Blood Pressure : / mmHG Vent. Rate : 069 BPM Atrial Rate : 069 BPM P-R Int : 166 ms QRS Dur : 100 ms QT Int : 442 ms P-R-T Axes : 047 034 059 degrees QTc Int : 473 ms Normal sinus rhythm Normal ECG When compared with ECG of 02-JUN-2023 13:13, Premature ventricular complexes are no longer Present Confirmed by Michael Hendrickson ([id number]) on 06/05/2023 5:54:59 AM Referred By: REFERRED SELF Confirmed By:Michael Hendrickson
[2023-06-05] MEDS ORDERED: amLODIPine BESYLATE 5 MG TAB PO SCH (09:00)
[2023-06-05 13:03] LABS: Marijuana Quant, GCMS Urine 348 ng/mL (<5)
== END 2023-06-04 14:19 | disposition home or self-care (01) ==
LOC: ED 13:05 → 2W 13:05 → SUATTDRO 17:57 → 2W 20:21

== ENCOUNTER 2025-05-11 17:04 | Inpatient (IN) ==
--- NOTE | 2025-05-11 17:24 | Emergency Department Note ---
Impression & Plan Dizziness, Atrial bigeminy, Post-op pain ED Provider Note NAME: IZZY RICE AGE: 69 SEX: M : 1955 ARRIVES VIA: Walk-In INFORMANT: Patient ED PROVIDER(S): Demetrio Guzman DO CHIEF COMPLAINT: Dizzy HPI: Patient is a 69-year-old male with past medical history of chronic back pain, hyperlipidemia, hypertension who presents to the ER for dizziness. He had right shoulder surgery performed May 01. Since this he has been dizzy. He denies any change in symptoms. No weakness or numbness in the arms or legs. No chest pain or shortness of breath. No nausea, vomiting, or diarrhea. No dysuria, urgency or frequency. No other exacerbating or remitting factors. ADDITIONAL HISTORY OBTAINED: Per HPI Chronic Medical/Social Conditions Affecting Care: Per HPI PAST MEDICAL HISTORY:See Below PAST SURGICAL HISTORY:See Below FAMILY HISTORY:See Below SOCIAL HISTORY:See Below HOME MEDICATIONS:See Below ALLERGIES:See Below VITALS:See Below PHYSICAL EXAMINATION: GENERAL: Sitting up in bed, alert, well appearing, well nourished, no distress, non-toxic EYE EXAM: normal conjunctiva. PERRL and EOM's intact. OROPHARYNX: no exudate, no erythema, lips, buccal mucosa, and tongue normal and mucous membranes are moist NECK: supple, no nuchal rigidity, no adenopathy, non-tender LUNGS: Clear to auscultation. Normal chest wall mechanics HEART: no murmurs, S1 normal and S2 normal ABDOMEN: abdomen soft, non-tender, normo-active bowel sounds, no masses, no rebound or guarding. BACK: Back is symmetrical on inspection and there is no deformity, no midline tenderness, no CVA tenderness. SKIN: no rashes and no bruising UPPER EXTREMITIES: Right upper extremity in sling. Grasp as well as abduction of the digits is 5 out of 5 bilaterally. LOWER EXTREMITIES: No pitting edema. NEURO EXAM: Normal sensorium, cranial nerves II-XII intact, normal speech, no weakness of arms, no weakness of legs. No drift. Finger to nose intact. Gross sensation intact. MEDICAL DECISION MAKING: Patient is a 69-year-old male who presents ER for dizziness. IV was established and blood work was obtained. EKG consistent with bigeminy. He spent a protracted period of time in the ER in [facility]. Labs show mild leukocytosis 11,000. No significant anemia. BMP along LFTs bilirubin was unremarkable. Troponins were negative x 2. Lipase unremarkable. CT angios of the head and neck were negative. She was a little unstable on his feet. He was given IV fluids. He was given Antivert. Duplex of the right lower extremity was done as review of records shows recent ultrasound which in several different instances stated it was the right and left lower extremity and I was unclear which extremity was actually done consequently I did the right lower extremity as it was unclear if it was actually done the first time. This was negative. Discussed case with hospitalist for further evaluation management treatment. Consults/Care Managements Discussions: Per [facility] Triage Nursing notes reviewed. Limited review of prior medical records performed Vital Signs: reviewed and remarkable for HTN Differential diagnosis: Differential diagnosis includes etiologies such as benign positional vertigo, dehydration, hypovolemia, anemia, tumor, infection, hypoglycemia, electrolyte abnormalities, cardiac sources, intracerebral event, toxicologic, neurological, as well as others were entertained. ER treatment provided: See below Diagnostics interpreted by me include EKG and cardiac monitoring as listed below: -Cardiac Monitoring: An order was placed for continuous cardiac monitoring. The monitor shows a rate of 90 with sinus rhythm. -ECG: Bigeminy rate of 113 Normal axis PVCs/bigeminy QTc 474 T wave inversion in lead III with septal Q waves -Laboratory studies:Interpreted by me as stated above in MDM and shown below. Imaging studies: Xrays: As interpreted by me: Portable AP upright 1 view of the chest shows no focal Lutrate CTs show: CT angios of the head and neck were negative Procedures:none Critical Care: None Past Med/Surg History Problem List (Updated 05/11/25 @ 21:09 by Demetrio Guzman DO) Post-op pain (Acute) Atrial bigeminy (Acute) Dizziness (Acute) Right calf pain Right leg swelling Acute postoperative pain of right shoulder (Acute) S/P arthroscopy of right shoulder Encounter for pre-operative examination Tendinopathy of right biceps tendon Intramuscular lipoma Suprascapular nerve compression Impingement of right shoulder Right rotator cuff tear Transient monocular blindness (Acute) Entered 2022 Visual disturbance of one eye (Acute) Neurogenic claudication due to lumbar spinal stenosis Lumbar radiculopathy (Acute) Anxiety Hyperlipidemia Prostate cancer Chronic back pain (Acute) Chronic neck pain (Chronic) Hypertension (Chronic) Medical History History of multiple pulmonary nodules hx lung nodules, they went away per pt. Asymptomatic PVCs Hyperlipidemia HTN (hypertension) History of postoperative nausea and vomiting maybe 1 time, mild. Scoliosis Chronic neck pain full rom Chronic back pain Pre-diabetes History of kidney stones Anxiety History of depression History of prostate cancer dx approx 2020, hx prostatectomy. History of skin cancer History of COVID-19 Dx 04/27/20 (report documented in [facility]) > symptoms at time of low grade fever, body aches, elevated BP > symptoms resolved/currently asymptomatic no hx hospitalization. Lumbar radiculopathy Osteoarthritis History of nocturia Surgical History History of revision of total replacement of left knee joint History of lumbar fusion approx 2021 History of total left knee replacement History of total right knee replacement (TKR) (~08/2021) [facility] Hx of prostatectomy due to cancer and no chemo/radiation needed, approx 2020 History of arthroscopy Right knee History of carpal tunnel release R/L History of tonsillectomy History of lithotripsy Right ESWL: 05/31/19: LMA#5 at [facility] [place] Family History Father Diabetes Mother Hypertension Sister Cancer Social History Smoking Status: Never smoker Tobacco Type: Cigarettes Second Hand Exposure: No; Do You Dip or Chew Tobacco: No; Hx Alcohol Use: No Hx Substance Use: No Preferred Language: Senegalese Communication Ability: Effective Visual Impairment: No Limitations Hearing Ability: Normal Odd Shoe Examiner Required: No Beliefs That Will Affect Care: None marital status: Current Living Situation: Family Current Living Situation Comment: son and cat current occupational status: employed How many Children do You have: 3 Feels Safe at Home: Yes Assistive Devices: None Allergies Allergies Allergy/AdvReac Type Severity Reaction Status Date / Time No Known Allergies Allergy Verified 05/01/25 09:12 Home Meds Home Medications Medication Instructions Recorded Confirmed tramadol 50 mg tablet 50 mg PO Q6H PRN Pain 10/24/22 05/11/25 spironolactone 50 mg tablet 50 mg PO QAM 03/09/23 05/11/25 metoprolol succinate 50 mg 50 mg PO HS 05/30/23 05/11/25 tablet,extended release 24 hr lisinopril 20 1 tab PO QAM 11/11/23 05/11/25 mg-hydrochlorothiazide 25 mg tablet amlodipine 10 mg tablet 10 mg PO QAM 05/11/25 05/11/25 gabapentin 600 mg tablet 600 mg PO TID 05/11/25 05/11/25 Previous Rx's Medication Instructions Recorded aspirin 81 mg tablet,delayed 81 mg PO QAM #30 tabs 06/04/23 release atorvastatin 40 mg tablet 80 mg (2 x 40 mg) PO HS #60 tabs 06/04/23 ibuprofen 800 mg tablet 800 mg PO TID PRN pain #30 tabs 05/03/25 ondansetron 4 mg disintegrating 4 mg PO Q6H PRN nausea and 05/09/25 tablet vomiting #10 tabs oxycodone 5 mg tablet 5 - 10 mg (1 - 2 x 5 mg) PO Q6H 05/09/25 PRN post operative pain #18 tabs Results & Data (ED) Vital Signs Vital Signs - 24 hr 05/11/25 17:10 05/11/25 17:12 05/11/25 17:44 Temperature 36.4 C L Temperature Source Temporal Artery Scan Pulse Rate 95 H 109 H Pulse Rate from SpO2 Sensor Pulse Rhythm Regular Respiratory Rate 20 Respiratory Effort / Characteristics Non-Labored Spontaneous Respiratory Depth Normal Respiratory Pattern Regular Blood Pressure 175/83 H Blood Pressure Mean 113 Blood Pressure Position Sitting Pulse Oximetry 98 Oxygen Delivery Method Room Air Room Air Sepsis Recent Fever Within 48 Hours No Sepsis New/Unexplained Change in Mental Status No Sepsis Action Taken by Nursing No Action Required 05/11/25 17:45 05/11/25 18:09 05/11/25 18:12 Temperature Temperature Source Pulse Rate 112 H 111 H 109 H Pulse Rate from SpO2 Sensor 70 Pulse Rhythm Respiratory Rate 18 20 21 Respiratory Effort / Characteristics Respiratory Depth Respiratory Pattern Blood Pressure Blood Pressure Mean Blood Pressure Position Pulse Oximetry 97 Oxygen Delivery Method Sepsis Recent Fever Within 48 Hours Sepsis New/Unexplained Change in Mental Status Sepsis Action Taken by Nursing Laboratory Data 05/11/25 17:24 05/11/25 17:24 Lab Results 05/11/25 05/11/25 05/11/25 Range/Units 17:24 17:31 19:23 WBC 11.83 H (4.8-10.8) K/ul RBC 4.61 L (4.70-6.10) M/uL Hgb 14.9 (14.0-18.0) g/dL POC Hgb 15.0 (14.0-18.0) g/dl Hct 43.7 (42.0-52.0) % POC Hct 44 (42-52) % MCV 94.8 (80.0-100.0) fL MCH 32.3 (25.0-34.0) pg MCHC 34.1 (32.0-36.0) g/dL RDW Std Deviation 50.5 H (36.4-46.3) fL RDW Coeff of Jay 14.4 (11.5-14.5) % Plt Count 420 H (130-400) K/uL MPV 8.9 L (9.4-12.4) fL Immature Gran % (Auto) 0.8 % Neut % (Auto) 71.9 % Lymph % (Auto) 16.1 % Jessamine % (Auto) 9.0 % Eos % (Auto) 1.6 % Baso % (Auto) 0.6 % Neut # (Auto) 8.51 H (1.40-6.50) K/uL Lymph # (Auto) 1.91 (1.20-3.40) K/uL Jessamine # (Auto) 1.06 H (0.11-0.59) K/uL Eos # (Auto) 0.19 (0.00-0.50) K/uL Baso # (Auto) 0.07 (0.00-0.20) K/uL Immature Gran # (Auto) 0.09 (0.01-0.20) K/uL POC Sodium 144 (135-144) mmol/L Sodium 142 (136-145) mmol/L POC Potassium 3.8 (3.3-5.0) mmol/L Potassium 3.8 (3.5-5.1) mmol/L POC Chloride 106 (101-112) mmol/L Chloride 107 (98-107) mmol/L Carbon Dioxide 26 (21-32) mmol/L POC Total CO2 24 (24-31) mmol/L Anion Gap 9 (3-11) POC Anion Gap 18.0 (16-25) mmol/L POC BUN 16 (7-18) mg/dl BUN 16 (6-23) mg/dl Creatinine 0.76 (0.6-1.4) mg/dl POC Creatinine 0.8 (0.6-1.3) mg/dl Est Cr Clr Drug Dosing 113.6 ml/min eGFR 96.69 BUN/Creatinine Ratio 21.1 H (10-20) Glucose 115 H (70-99(Fasting)) mg/dl POC Glucose (other) 115 H (70-99) mg/dl Calcium 9.4 (8.6-10.3) mg/dl POC Ioniz Calcium Jorge 1.19 (1.12-1.32) mmol/l Total Bilirubin 0.4 (0.2-1.0) mg/dl AST 23 (13-39) U/L ALT 33 (7-52) U/L Alkaline Phosphatase 142 H (34-104) U/L Troponin I High Sens 4.7 5.5 (0-20) pg/ml Total Protein 7.3 (6.0-8.3) gm/dl Albumin 4.3 (3.4-5.0) gm/dl Globulin 3.0 (2.5-4.0) gm/dl Albumin/Globulin Ratio 1.4 (0.9-2) Lipase 27 (11-82) U/L Administered Medications Discontinued Medications Sodium Chloride (Nss) 1,000 mls @ 999 mls/hr IV .Q1H1M ONE Stop: 05/11/25 20:27 Last Admin: 05/11/25 19:55 Dose: 999 mls/hr Documented By: [email or web address] Ioversol (Optiray 320 125ml) 119 ml IV ONCE ONE Stop: 05/11/25 18:04 Last Admin: 05/11/25 18:03 Dose: 119 ml Documented By: ANANDA Meclizine HCl (Meclizine Hcl 25 Mg Tab) 25 mg PO NOW STA Stop: 05/11/25 17:23 Last Admin: 05/11/25 17:37 Dose: 25 mg Documented By: deni Morphine Sulfate (Morphine Sulfate 4 Mg/Ml 1 Ml Carp\Vial) 3 mg IV NOW STA Stop: 05/11/25 19:38 Last Admin: 05/11/25 19:54 Dose: 3 mg Documented By: nahumw Ondansetron HCl (Ondansetron Inj 2 Mg/Ml 2 Ml Vial) 4 mg IV NOW STA Stop: 05/11/25 17:23 Last Admin: 05/11/25 17:37 Dose: 4 mg Documented By: deni Oxycodone HCl (Oxycodone Hcl Ir 5 Mg Tab (Immediate Release)) 5 mg PO NOW STA Stop: 05/11/25 18:45 Last Admin: 05/11/25 19:20 Dose: 5 mg Documented By: clw Imaging Data Radiologist's Impression: Chest X-Ray 05/11/25 17:21 EXAM: X-ray chest one-view portable CLINICAL HISTORY: Recent shoulder cuff surgery 9 days ago with nausea pain since PRIORS: 10/07/2024 TECHNIQUE: Portable upright AP chest FINDINGS: Diminished lung volumes noted. No airspace consolidation, effusion or congestive changes. Heart size is unchanged. No pneumothorax. Trachea is patent. Osseous structures demonstrate no acute abnormality. No radiopaque foreign body. IMPRESSION: No plain film evidence of an acute cardiopulmonary process. If clinically appropriate, chest CT could be considered. Electronically signed by So Frost 05-11-2025 6:24 PM Head CTA 05/11/25 17:21 HISTORY: HEADACHES TECHNIQUE: CT angiography of the head and the neck was performed. Coronal and sagittal reformats were created. IV CONTRAST: 100 mL of OMNIPAQUE 300 COMPARISON: FINDINGS: CTA HEAD: Stenotic/occlusive disease: Focal stenosis of the left DIGITAL ACCOUNT EXECUTIVE P1 segment Aneurysm: None Vascular malformation: None. Generalized prominent appearance of the intracranial arterial vessels NONVASCULAR: Brain parenchyma: Chronic white matter ischemic changes Extra-axial space: Unremarkable Ventricular system: Unremarkable Additional comments: None CTA NECK: Right carotid: No hemodynamically significant stenosis. Left carotid: No hemodynamically significant stenosis. Vertebrobasilar system: No hemodynamically significant stenosis. Aortic arch and subclavian arteries: No hemodynamically significant stenosis. Nonvascular structures: Unremarkable. Stenosis ranges are derived using NASCET criteria. IMPRESSION: No acute intracranial process is identified in the dry CT No large vessel occlusion Focal stenosis of the left DIGITAL ACCOUNT EXECUTIVE P1 segment Generalized prominent appearance of the intracranial arterial vessels which suggests chronic systemic hypertension Electronically signed by Paras Hawkins 05-11-2025 6:40 PM Neck CTA 05/11/25 17:21 HISTORY: HEADACHES TECHNIQUE: CT angiography of the head and the neck was performed. Coronal and sagittal reformats were created. IV CONTRAST: 100 mL of OMNIPAQUE 300 COMPARISON: FINDINGS: CTA HEAD: Stenotic/occlusive disease: Focal stenosis of the left DIGITAL ACCOUNT EXECUTIVE P1 segment Aneurysm: None Vascular malformation: None. Generalized prominent appearance of the intracranial arterial vessels NONVASCULAR: Brain parenchyma: Chronic white matter ischemic changes Extra-axial space: Unremarkable Ventricular system: Unremarkable Additional comments: None CTA NECK: Right carotid: No hemodynamically significant stenosis. Left carotid: No hemodynamically significant stenosis. Vertebrobasilar system: No hemodynamically significant stenosis. Aortic arch and subclavian arteries: No hemodynamically significant stenosis. Nonvascular structures: Unremarkable. Stenosis ranges are derived using NASCET criteria. IMPRESSION: No acute intracranial process is identified in the dry CT No large vessel occlusion Focal stenosis of the left DIGITAL ACCOUNT EXECUTIVE P1 segment Generalized prominent appearance of the intracranial arterial vessels which suggests chronic systemic hypertension Electronically signed by Paras Hawkins 05-11-2025 6:40 PM Venous Doppler Study 05/11/25 17:43 Ultrasound EXAMINATION: Extremity ultrasound lower extremity RIGHT CLINICAL HISTORY: Swelling PRIORS: None TECHNIQUE: Ultrasound interrogation of the deep venous structures was performed with grayscale, color Doppler, compression and augmentation. FINDINGS: The right common femoral, superficial femoral, saphenous, popliteal and tibial veins demonstrate normal compressibility, frequency and augmentation. IMPRESSION: No sonographic evidence of deep venous thrombosis in the right lower extremity. Electronically signed by So Frost 05-11-2025 7:14 PM Discharge Plan Visit Data Chief Complaint: Dizziness Stated Complaint: POST SURGERY ILLNESS RT SHOULDER ED Provider: Demetrio Guzman Discharge Problem: Dizziness, Atrial bigeminy, Post-op pain Condition: Fair Forms Stand Alone Forms: [facility] Prescriptions Prescriptions: No Action oxycodone 5 mg tablet 5 - 10 mg PO Q6H MDD 6 tablets PRN (Reason: post operative pain) Qty: 18 0RF ondansetron 4 mg tablet,disintegrating 4 mg PO Q6H PRN (Reason: nausea and vomiting) Qty: 10 0RF tramadol 50 mg tablet 50 mg PO Q6H PRN (Reason: Pain) Hold Instructions: Resume on 06/13/25. sending in Oxy for post op pain aspirin 81 mg Tablet,Delayed Release (Dr/Ec) 81 mg PO QAM Qty: 30 0RF atorvastatin 40 mg tablet 80 mg PO HS Qty: 60 0RF spironolactone 50 mg tablet 50 mg PO QAM metoprolol succinate 50 mg tablet extended release 24 hr 50 mg PO HS lisinopril-hydrochlorothiazide 20-25 mg Tablet 1 tab PO QAM ibuprofen 800 mg tablet 800 mg PO TID PRN (Reason: pain) Qty: 30 0RF Rx Instructions: with food gabapentin 600 mg tablet 600 mg PO TID amlodipine 10 mg tablet 10 mg PO QAM Referrals Referrals: Braden Zamora MD [Primary Care Provider] -
[2025-05-11] MEDS: ONDANSETRON INJ 2 MG/ML 2 ML VIAL IV STA (17:37)
[2025-05-11] MEDS: MECLIZINE HCL 25 MG TAB PO STA (17:37)
[2025-05-11 17:50] LABS: Hematocrit (blood only) 43.7 % (42.0-52.0); Hemoglobin 14.9 g/dL (14.0-18.0); Immature Granulocytes # (auto) 0.09 K/uL (0.01-0.20); Immature Granulocytes % (auto) 0.8 %; Mean Corpuscular Hemoglobin 32.3 pg (25.0-34.0); Mean Corpuscular Volume 94.8 fL (80.0-100.0); Platelet Count 420 K/uL (130-400); RDW Standard Deviation 50.5 fL (36.4-46.3); Red Blood Count 4.61 M/uL (4.70-6.10); White Blood Count 11.83 K/ul (4.8-10.8)
[2025-05-11] MEDS: OPTIRAY 320 125ml IV ONE (18:03)
[2025-05-11 18:10] LABS: Alanine Aminotransferase 33.0 U/L (7-52); Albumin Globulin Ratio 1.4 (0.9-2); Albumin Level 4.3 gm/dl (3.4-5.0); Alkaline Phosphatase 142.0 U/L (34-104); Anion Gap 9.0 (3-11); Bilirubin,Total 0.4 mg/dl (0.2-1.0); Blood Urea Nitrogen 16.0 mg/dl (6-23); Calcium 9.4 mg/dl (8.6-10.3); Carbon Dioxide 26.0 mmol/L (21-32); Chloride 107.0 mmol/L (98-107); Creatinine Clr Calc Pharmacy 113.6 ml/min; Globulin 3.0 gm/dl (2.5-4.0); Glucose 115.0 mg/dl (70-99(Fasting)); Lipase 27.0 U/L (11-82); Potassium 3.8 mmol/L (3.5-5.1); Sodium 142.0 mmol/L (136-145); Total Protein 7.3 gm/dl (6.0-8.3)
--- NOTE | 2025-05-11 18:24 | XRay Report ---
EXAM: X-ray chest one-view portable CLINICAL HISTORY: Recent shoulder cuff surgery 9 days ago with nausea pain since PRIORS: 10/07/2024 TECHNIQUE: Portable upright AP chest FINDINGS: Diminished lung volumes noted. No airspace consolidation, effusion or congestive changes. Heart size is unchanged. No pneumothorax. Trachea is patent. Osseous structures demonstrate no acute abnormality. No radiopaque foreign body. IMPRESSION: No plain film evidence of an acute cardiopulmonary process. If clinically appropriate, chest CT could be considered. Electronically signed by So Frost 05-11-2025 6:24 PM
--- NOTE | 2025-05-11 18:40 | CT Scan Report ---
HISTORY: HEADACHES TECHNIQUE: CT angiography of the head and the neck was performed. Coronal and sagittal reformats were created. IV CONTRAST: 100 mL of OMNIPAQUE 300 COMPARISON: FINDINGS: CTA HEAD: Stenotic/occlusive disease: Focal stenosis of the left INCOME TAX ADMINISTRATOR P1 segment Aneurysm: None Vascular malformation: None. Generalized prominent appearance of the intracranial arterial vessels NONVASCULAR: Brain parenchyma: Chronic white matter ischemic changes Extra-axial space: Unremarkable Ventricular system: Unremarkable Additional comments: None CTA NECK: Right carotid: No hemodynamically significant stenosis. Left carotid: No hemodynamically significant stenosis. Vertebrobasilar system: No hemodynamically significant stenosis. Aortic arch and subclavian arteries: No hemodynamically significant stenosis. Nonvascular structures: Unremarkable. Stenosis ranges are derived using NASCET criteria. IMPRESSION: No acute intracranial process is identified in the dry CT No large vessel occlusion Focal stenosis of the left INCOME TAX ADMINISTRATOR P1 segment Generalized prominent appearance of the intracranial arterial vessels which suggests chronic systemic hypertension Electronically signed by Paras aHwkins 05-11-2025 6:40 PM
--- NOTE | 2025-05-11 18:41 | CT Scan Report ---
HISTORY: HEADACHES TECHNIQUE: CT angiography of the head and the neck was performed. Coronal and sagittal reformats were created. IV CONTRAST: 100 mL of OMNIPAQUE 300 COMPARISON: FINDINGS: CTA HEAD: Stenotic/occlusive disease: Focal stenosis of the left OPERATING ENGINEER APPRENTICE P1 segment Aneurysm: None Vascular malformation: None. Generalized prominent appearance of the intracranial arterial vessels NONVASCULAR: Brain parenchyma: Chronic white matter ischemic changes Extra-axial space: Unremarkable Ventricular system: Unremarkable Additional comments: None CTA NECK: Right carotid: No hemodynamically significant stenosis. Left carotid: No hemodynamically significant stenosis. Vertebrobasilar system: No hemodynamically significant stenosis. Aortic arch and subclavian arteries: No hemodynamically significant stenosis. Nonvascular structures: Unremarkable. Stenosis ranges are derived using NASCET criteria. IMPRESSION: No acute intracranial process is identified in the dry CT No large vessel occlusion Focal stenosis of the left OPERATING ENGINEER APPRENTICE P1 segment Generalized prominent appearance of the intracranial arterial vessels which suggests chronic systemic hypertension Electronically signed by Paras Hawkins 05-11-2025 6:40 PM
--- NOTE | 2025-05-11 19:15 | Ultrasound Report ---
Ultrasound EXAMINATION: Extremity ultrasound lower extremity RIGHT CLINICAL HISTORY: Swelling PRIORS: None TECHNIQUE: Ultrasound interrogation of the deep venous structures was performed with grayscale, color Doppler, compression and augmentation. FINDINGS: The right common femoral, superficial femoral, saphenous, popliteal and tibial veins demonstrate normal compressibility, frequency and augmentation. IMPRESSION: No sonographic evidence of deep venous thrombosis in the right lower extremity. Electronically signed by So Frost 05-11-2025 7:14 PM
[2025-05-11] MEDS: MoRPHine SULFATE 4 MG/ML 1 ML CARP\\VIAL IV STA (19:54)
[2025-05-11] MEDS: SODIUM CHLORIDE 0.9% 1,000 ML IV ONE (19:55)
--- NOTE | 2025-05-11 22:50 | History & Physical Report ---
Date of Service May 11, 2025 Assessment & Plan (1) Dizziness: Plan: 69-year-old male with past med history significant for dyslipidemia, prediabetes, hypertension, prostate cancer, generalized osteoarthritis, cervicalgia, history of TIA, history of lumbar fusion surgery comes with persistent dizziness. Patient had right shoulder surgery on May 01, 2025 including reattachment of long head of the biceps, repair of full-thickness rotator cuff tear and removal of lipoma. Patient states since his right shoulder surgery he is feeling dizziness. States dizziness has been persistent. Associated with nausea. Sometimes he is unsteady while walking. As he is not getting better he came to the ER today. Denies any headache. Vision is okay. No runny nose or sore throat. No difficulty swallowing. Appetite is okay. Denies chest pain or shortness of breath. No cough. No fevers. No abdominal pain. Normal bladder movements. He was constipated from Oxy but that has been resolved. Hemodynamics are okay currently. Dizziness Persistent since his right shoulder surgery May 01 CTA head no acute findings except for focal stenosis of left [employer] P1 segment CTA neck no acute findings No vertigo Will follow-up with MRI brain Consult neurology in a.m. for further recommendations Abnormal EKG PVCs with bigeminy Denies any chest pains 2 sets of troponin negative Will follow repeat EKG and echo Can consider cardiology consult Lower extreme edema Right lower extremity Doppler negative for DVT Will follow D-dimers Will follow echo On Aldactone Possibly from amlodipine Prediabetes Will follow HbA1c levels History of TIA On aspirin and statin Shoulder pain From surgery Chronic back pain Pain control Hyperlipidemia On statin Hypertension On amlodipine and metoprolol succinate and Aldactone Will monitor DVT prophylaxis SCDs for now Disposition Med/telemetry Full code. History of Present Illness Chief Complaint: Persistent dizziness Primary Care Provider: Braden Zamora MD 69-year-old male with past med history significant for dyslipidemia, prediabetes, hypertension, prostate cancer, generalized osteoarthritis, cervicalgia, history of TIA, history of lumbar fusion surgery comes with persistent dizziness. Patient had right shoulder surgery on May 01, 2025 including reattachment of long head of the biceps, repair of full-thickness rotator cuff tear and removal of lipoma. Patient states since his right shoulder surgery he is feeling dizziness. States dizziness has been persistent. Associated with nausea. Sometimes he is unsteady while walking. As he is not getting better he came to the ER today. Denies any headache. Vision is okay. No runny nose or sore throat. No difficulty swallowing. Appetite is okay. Denies chest pain or shortness of breath. No cough. No fevers. No abdominal pain. Normal bladder movements. He was constipated from Oxy but that has been resolved. Hemodynamics are okay currently. Past medical history. As mentioned above. Past surgical history. Right total knee arthroplasty. Drainage of pilonidal cy st. Fragmentation of kidney stone by shockwave. Injection of lumbosacral spine. Left knee revision. Left knee replacement. Tonsillectomy and adenoidectomy. Social history. No smoking. No alcohol use. No drug use. Family history. Father had lymphocytic leukemia. Diabetes. Sister had basal cell cancer. Mother has hypertension. Allergies Allergy/AdvReac Type Severity Reaction Status Date / Time No Known Allergies Allergy Verified 05/01/25 09:12 Home Medications Medication Instructions Recorded Confirmed Type tramadol 50 mg tablet 50 mg PO Q6H PRN Pain 10/24/22 05/11/25 History spironolactone 50 mg tablet 50 mg PO QAM 03/09/23 05/11/25 History metoprolol succinate 50 mg 50 mg PO HS 05/30/23 05/11/25 History tablet,extended release 24 hr aspirin 81 mg tablet,delayed 81 mg PO QAM #30 tabs 06/04/23 05/11/25 Rx release atorvastatin 40 mg tablet 80 mg (2 x 40 mg) PO HS #60 tabs 06/04/23 05/11/25 Rx lisinopril 20 1 tab PO QAM 11/11/23 05/11/25 History mg-hydrochlorothiazide 25 mg tablet ibuprofen 800 mg tablet 800 mg PO TID PRN pain #30 tabs 05/03/25 05/11/25 Rx ondansetron 4 mg disintegrating 4 mg PO Q6H PRN nausea and 05/09/25 05/11/25 Rx tablet vomiting #10 tabs oxycodone 5 mg tablet 5 - 10 mg (1 - 2 x 5 mg) PO Q6H 05/09/25 05/11/25 Rx PRN post operative pain #18 tabs amlodipine 10 mg tablet 10 mg PO QAM 05/11/25 05/11/25 History gabapentin 600 mg tablet 600 mg PO TID 05/11/25 05/11/25 History Past Med/Surg History Problem List (Updated 05/11/25 @ 21:09 by Demetrio Guzman DO) Post-op pain (Acute) Atrial bigeminy (Acute) Dizziness (Acute) Right calf pain Right leg swelling Acute postoperative pain of right shoulder (Acute) S/P arthroscopy of right shoulder Encounter for pre-operative examination Tendinopathy of right biceps tendon Intramuscular lipoma Suprascapular nerve compression Impingement of right shoulder Right rotator cuff tear Transient monocular blindness (Acute) Entered 2022 Visual disturbance of one eye (Acute) Neurogenic claudication due to lumbar spinal stenosis Lumbar radiculopathy (Acute) Anxiety Hyperlipidemia Prostate cancer Chronic back pain (Acute) Chronic neck pain (Chronic) Hypertension (Chronic) Medical History History of multiple pulmonary nodules hx lung nodules, they went away per pt. Asymptomatic PVCs Hyperlipidemia HTN (hypertension) History of postoperative nausea and vomiting maybe 1 time, mild. Scoliosis Chronic neck pain full rom Chronic back pain Pre-diabetes History of kidney stones Anxiety History of depression History of prostate cancer dx approx 2020, hx prostatectomy. History of skin cancer History of COVID-19 Dx 04/27/20 (report documented in [facility]) > symptoms at time of low grade fever, body aches, elevated BP > symptoms resolved/currently asymptomatic no hx hospitalization. Lumbar radiculopathy Osteoarthritis History of nocturia Surgical History History of revision of total replacement of left knee joint History of lumbar fusion approx 2021 History of total left knee replacement History of total right knee replacement (TKR) (~08/2021) [facility] Hx of prostatectomy due to cancer and no chemo/radiation needed, approx 2020 History of arthroscopy Right knee History of carpal tunnel release R/L History of tonsillectomy History of lithotripsy Right ESWL: 05/31/19: LMA#5 at [facility] [place] Family History Father Diabetes Mother Hypertension Sister Cancer Social History (Reviewed 05/03/25 @ 13:48 by WOLFGANG Alejandra Smoking Status: Never smoker Tobacco Type: Cigarettes Second Hand Exposure: No; Do You Dip or Chew Tobacco: No; Hx Alcohol Use: No Hx Substance Use: No Preferred Language: Kiswahili Communication Ability: Effective Visual Impairment: No Limitations Hearing Ability: Normal Pbx Teacher Required: No Beliefs That Will Affect Care: None marital status: Current Living Situation: Other Current Living Situation Comment: With son current occupational status: employed How many Children do You have: 3 Feels Safe at Home: Yes Safety Concerns: Feels Safe At This Time Assistive Devices: None Assistive Devices Comment: splint Review of Systems Review of Systems: All systems reviewed & are unremarkable except as noted in HPI & below Physical Exam Physical Exam: General- Not in acute distress Head- atraumatic Eyes- PERRL, EOMI, no nystagmus ENT- oropharynx clear Neck- supple, no JVD. Lungs- clear to auscultation no wheezing or crackles Heart- regular rhythm; no murmur, no gallop. Abdomen- normal bowel sounds, soft, nontender, no distension Extremities- no pretibial edema, no erythema seen. Neuro- alert, oriented PERRL, no facial palsy; no dysarthria; motor 5/5 bilaterally; coordination of movements normal, sensations intact Results & Data Results & Data Vital Signs (Past 12 Hours) Vital Signs Temp Pulse Pulse Resp BP BP Pulse Ox 05/11/25 22:39 102 H 20 149/103 H 97 05/11/25 21:38 103 H 05/11/25 21:17 36.8 C 100 H 19 154/100 H 96 05/11/25 18:12 109 H 21 05/11/25 18:09 111 H 20 05/11/25 17:45 112 H 18 97 05/11/25 17:44 109 H 05/11/25 17:12 05/11/25 17:10 36.4 C L 95 H 20 175/83 H 98 O2 Del Method 05/11/25 22:39 Room Air 05/11/25 21:38 05/11/25 21:17 Room Air 05/11/25 18:12 05/11/25 18:09 05/11/25 17:45 05/11/25 17:44 05/11/25 17:12 Room Air 05/11/25 17:10 Room Air Diagnostic Findings Laboratory Results WBC 11.83 K/ul (4.8-10.8) H 05/11/25 17:24 RBC 4.61 M/uL (4.70-6.10) L 05/11/25 17:24 Hgb 14.9 g/dL (14.0-18.0) 05/11/25 17:24 POC Hgb 15.0 g/dl (14.0-18.0) 05/11/25 17:31 Hct 43.7 % (42.0-52.0) 05/11/25 17:24 POC Hct 44 % (42-52) 05/11/25 17: MCV 94.8 fL (80.0-100.0) 05/11/25 17: MCH 32.3 pg (25.0-34.0) 05/11/25 17: MCHC 34.1 g/dL (32.0-36.0) 05/11/25 17: RDW Std Deviation 50.5 fL (36.4-46.3) H 05/11/25 17:24 RDW Coeff of Jay 14.4 % (11.5-14.5) 05/11/25 17: Plt Count 420 K/uL (130-400) H 05/11/25 17:24 MPV 8.9 fL (9.4-12.4) L 05/11/25 17: Immature Gran % (Auto) 0.8 % 05/11/25 17: Neut % (Auto) 71.9 % 05/11/25 17: Lymph % (Auto) 16.1 % 05/11/25 17:24 [place] % (Auto) 9.0 % 05/11/25 17:24 Eos % (Auto) 1.6 % 05/11/25 17: Baso % (Auto) 0.6 % 05/11/25 17: Neut # (Auto) 8.51 K/uL (1.40-6.50) H 05/11/25 17:24 Lymph # (Auto) 1.91 K/uL (1.20-3.40) 05/11/25 17: [place] # (Auto) 1.06 K/uL (0.11-0.59) H 05/11/25 17:24 Eos # (Auto) 0.19 K/uL (0.00-0.50) 05/11/25 17:24 Baso # (Auto) 0.07 K/uL (0.00-0.20) 05/11/25 17:24 Immature Gran # (Auto) 0.09 K/uL (0.01-0.20) 05/11/25 17:24 POC Sodium 144 mmol/L (135-144) 05/11/25 17:31 Sodium 142 mmol/L (136-145) 05/11/25 17:24 POC Potassium 3.8 mmol/L (3.3-5.0) 05/11/25 17:31 Potassium 3.8 mmol/L (3.5-5.1) 05/11/25 17:24 POC Chloride 106 mmol/L (101-112) 05/11/25 17:31 Chloride 107 mmol/L (98-107) 05/11/25 17:24 Carbon Dioxide 26 mmol/L (21-32) 05/11/25 17:24 POC Total CO2 24 mmol/L (24-31) 05/11/25 17:31 Anion Gap 9 (3-11) 05/11/25 17:24 POC Anion Gap 18.0 mmol/L (16-25) 05/11/25 17:31 POC BUN 16 mg/dl (7-18) 05/11/25 17:31 BUN 16 mg/dl (6-23) 05/11/25 17:24 Creatinine 0.76 mg/dl (0.6-1.4) 05/11/25 17:24 POC Creatinine 0.8 mg/dl (0.6-1.3) 05/11/25 17:31 Est Cr Clr Drug Dosing 113.6 ml/min 05/11/25 17:24 eGFR 96.69 05/11/25 17:24 BUN/Creatinine Ratio 21.1 (10-20) H 05/11/25 17:24 Glucose 115 mg/dl (70-99(Fasting)) H 05/11/25 17:24 POC Glucose (other) 115 mg/dl (70-99) H 05/11/25 17:31 Calcium 9.4 mg/dl (8.6-10.3) 05/11/25 17:24 POC Ioniz Calcium Jorge 1.19 mmol/l (1.12-1.32) 05/11/25 17:31 Total Bilirubin 0.4 mg/dl (0.2-1.0) 05/11/25 17:24 AST 23 U/L (13-39) 05/11/25 17:24 ALT 33 U/L (7-52) 05/11/25 17:24 Alkaline Phosphatase 142 U/L (34-104) H 05/11/25 17:24 Troponin I High Sens 5.5 pg/ml (0-20) 05/11/25 19:23 Total Protein 7.3 gm/dl (6.0-8.3) 05/11/25 17:24 Albumin 4.3 gm/dl (3.4-5.0) 05/11/25 17:24 Globulin 3.0 gm/dl (2.5-4.0) 05/11/25 17:24 Albumin/Globulin Ratio 1.4 (0.9-2) 05/11/25 17:24 Lipase 27 U/L (11-82) 05/11/25 17:24 Impressions Chest X-Ray 05/11/25 17:21 EXAM: X-ray chest one-view portable CLINICAL HISTORY: Recent shoulder cuff surgery 9 days ago with nausea pain since PRIORS: 10/07/2024 TECHNIQUE: Portable upright AP chest FINDINGS: Diminished lung volumes noted. No airspace consolidation, effusion or congestive changes. Heart size is unchanged. No pneumothorax. Trachea is patent. Osseous structures demonstrate no acute abnormality. No radiopaque foreign body. IMPRESSION: No plain film evidence of an acute cardiopulmonary process. If clinically appropriate, chest CT could be considered. Electronically signed by So Frost 05-11-2025 6:24 PM Head CTA 05/11/25 17:21 HISTORY: HEADACHES TECHNIQUE: CT angiography of the head and the neck was performed. Coronal and sagittal reformats were created. IV CONTRAST: 100 mL of OMNIPAQUE 300 COMPARISON: FINDINGS: CTA HEAD: Stenotic/occlusive disease: Focal stenosis of the left [employer] P1 segment Aneurysm: None Vascular malformation: None. Generalized prominent appearance of the intracranial arterial vessels NONVASCULAR: Brain parenchyma: Chronic white matter ischemic changes Extra-axial space: Unremarkable Ventricular system: Unremarkable Additional comments: None CTA NECK: Right carotid: No hemodynamically significant stenosis. Left carotid: No hemodynamically significant stenosis. Vertebrobasilar system: No hemodynamically significant stenosis. Aortic arch and subclavian arteries: No hemodynamically significant stenosis. Nonvascular structures: Unremarkable. Stenosis ranges are derived using NASCET criteria. IMPRESSION: No acute intracranial process is identified in the dry CT No large vessel occlusion Focal stenosis of the left [employer] P1 segment Generalized prominent appearance of the intracranial arterial vessels which suggests chronic systemic hypertension Electronically signed by Paras Hawkins 05-11-2025 6:40 PM Neck CTA 05/11/25 17:21 HISTORY: HEADACHES TECHNIQUE: CT angiography of the head and the neck was performed. Coronal and sagittal reformats were created. IV CONTRAST: 100 mL of OMNIPAQUE 300 COMPARISON: FINDINGS: CTA HEAD: Stenotic/occlusive disease: Focal stenosis of the left [employer] P1 segment Aneurysm: None Vascular malformation: None. Generalized prominent appearance of the intracranial arterial vessels NONVASCULAR: Brain parenchyma: Chronic white matter ischemic changes Extra-axial space: Unremarkable Ventricular system: Unremarkable Additional comments: None CTA NECK: Right carotid: No hemodynamically significant stenosis. Left carotid: No hemodynamically significant stenosis. Vertebrobasilar system: No hemodynamically significant stenosis. Aortic arch and subclavian arteries: No hemodynamically significant stenosis. Nonvascular structures: Unremarkable. Stenosis ranges are derived using NASCET criteria. IMPRESSION: No acute intracranial process is identified in the dry CT No large vessel occlusion Focal stenosis of the left [employer] P1 segment Generalized prominent appearance of the intracranial arterial vessels which suggests chronic systemic hypertension Electronically signed by Paras Hawkins 05-11-2025 6:40 PM Venous Doppler Study 05/11/25 17:43 Ultrasound EXAMINATION: Extremity ultrasound lower extremity RIGHT CLINICAL HISTORY: Swelling PRIORS: None TECHNIQUE: Ultrasound interrogation of the deep venous structures was performed with grayscale, color Doppler, compression and augmentation. FINDINGS: The right common femoral, superficial femoral, saphenous, popliteal and tibial veins demonstrate normal compressibility, frequency and augmentation. IMPRESSION: No sonographic evidence of deep venous thrombosis in the right lower extremity. Electronically signed by So Frost 05-11-2025 7:14 PM ECG Additional Comments: ECG. Sinus tachycardia with frequent PVCs the pattern of bigeminy. QTc 474 Code Status & VTE Plan VTE Prophylaxis Plan VTE Prophylaxis will be ordered: Yes
[2025-05-11] MEDS ORDERED: ACETAMINOPHEN 325 MG TAB PO PRN (23:23)
[2025-05-11] MEDS ORDERED: POLYETHYLENE (MIRALAX) 17 GM PACK PO PRN (23:23)
[2025-05-11] MEDS ORDERED: ONDANSETRON INJ 2 MG/ML 2 ML VIAL IV PRN (23:23)
[2025-05-11] MEDS ORDERED: NITROGLYCERIN SL 0.4 MG/TAB TAB SL PRN (23:23)
[2025-05-12] MEDS: ATORVASTATIN 40 MG TAB PO STA (00:14)
[2025-05-12] MEDS: METOPROLOL SUCC 50MG EXT REL TAB PO STA (00:15)
[2025-05-12] MEDS: SODIUM CHLORIDE 0.9% 1,000 ML IV SCH (00:42)
[2025-05-12 01:44] LABS: Appearance Urine Clear (Clear); Bacteria Urine Automated None Seen (None Seen); Cast Urine Automated 0-2 /lpf (0-2); Epithelial Cell Urine Auto 0-2 /hpf (0-2); Glucose Urine UA Negative (Negative); RBC Urine Automated 0-2 /hpf (0-2); WBC Urine Automated 0-5 /hpf (0-5)
[2025-05-12] MEDS: GADOBUTROL 65ML VIAL IV ONE (04:05)
--- NOTE | 2025-05-12 04:35 | Magnetic Resonance Report ---
EXAM: MR brain wo/w con CLINICAL HISTORY: persisistet dizziness TECHNIQUE: Multisequential and multiplanar images of the brain were submitted for review without and with contrast. 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 Scattered foci of increased T2/FLAIR signal abnormality are identified within the bilateral periventricular and subcortical white matter, and are most commonly associated with chronic small vessel ischemic disease. No focal parenchymal lesions are seen. No intracranial hemorrhage, mass effect, midline shift, extra-axial collection, or hydrocephalus is identified. Ventricles, sulci, and basal cisterns are symmetric and normal in size and configuration. Diffusion-weighted sequences show no evidence of acute ischemic infarction. Prominent VR spaces noted involving right basal ganglia.-stable. Midline structures including the pituitary gland, corpus callosum, pineal region, and brainstem are unremarkable. The craniovertebral junction is within normal limits. No calvarial abnormalities are identified. The paranasal sinuses and mastoid air cells are clear. Orbital structures are unremarkable. Appropriate flow voids are present in the visualized intracranial vessels. IMPRESSION: 1. No acute ischemia, space occupying mass, or other acute intracranial pathology is demonstrated. 2. Chronic small vessel ischemic disease.-stable. 3. Diffuse cerebral atrophy.-stable. Electronically signed by Leo Chávez 05-12-2025 04:35 AM
[2025-05-12 07:01] LABS: Hematocrit (blood only) 38.8 % (42.0-52.0); Hemoglobin 12.7 g/dL (14.0-18.0); Immature Granulocytes # (auto) 0.06 K/uL (0.01-0.20); Immature Granulocytes % (auto) 0.5 %; Mean Corpuscular Hemoglobin 31.7 pg (25.0-34.0); Mean Corpuscular Volume 96.8 fL (80.0-100.0); Platelet Count 370 K/uL (130-400); RDW Standard Deviation 53.1 fL (36.4-46.3); Red Blood Count 4.01 M/uL (4.70-6.10); White Blood Count 11.43 K/ul (4.8-10.8)
[2025-05-12 07:23] LABS: Anion Gap 7.0 (3-11); Blood Urea Nitrogen 14.0 mg/dl (6-23); Calcium 8.7 mg/dl (8.6-10.3); Carbon Dioxide 29.0 mmol/L (21-32); Chloride 107.0 mmol/L (98-107); Creatinine Clr Calc Pharmacy 99.1 ml/min; Glucose 126.0 mg/dl (70-99(Fasting)); Magnesium 2.0 mg/dl (1.7-2.4); Potassium 4.0 mmol/L (3.5-5.1); Sodium 143.0 mmol/L (136-145)
[2025-05-12 07:42] LABS: Hemoglobin A1C 6.3 % (4.5-5.6)
[2025-05-12] MEDS: GABAPENTIN 600 MG TAB PO SCH (08:12)
[2025-05-12] MEDS: ASPIRIN 81 MG ECTAB PO SCH (08:12)
[2025-05-12] MEDS: SPIRONOLACTONE 25 MG TAB PO SCH (08:12)
[2025-05-12] MEDS: SODIUM CHLORIDE 0.9% 500 ML IV SCH (08:35)
[2025-05-12] MEDS ORDERED: LISINOPRIL/HCTZ 20/25MG 1 TAB PO SCH (09:00)
[2025-05-12] MEDS: OPTIRAY 320 125ml IV ONE (09:19)
--- NOTE | 2025-05-12 09:45 | CT Scan Report ---
CT angio chest PE protocol CT DOSE: 1114.09 mGy.cm HISTORY: PE. TECHNIQUE: Multiple CTA images of the chest were obtained after the intravenous administration of 112 ml Optiray. Coronal and sagittal MIPS were obtained from the axial data set and were submitted for review. All measurements were obtained according to NASCET criteria. A dose lowering technique was u tilized adhering to the principles of ALARA. COMPARISON STUDY: 08/05/2022 FINDINGS: There is mild atelectasis in the lung bases. No other pulmonary consolidation or pleural ef fusion. No pneumothorax. No enlarged adenopathy. Evaluation for pulmonary embolism is limited by subo ptimal contrast bolus. There is no evidence of large central, main, or lobar pulmonary embolism. Othe rwise evaluation of the segmental and smaller pulmonary arterial branches is nondiagnostic. There are mild diffuse thoracic spine degenerative changes. Stable mild height loss at a few thoracic vertebra l bodies. Stable small oval lucent findings at the T10 vertebral body. No interval osseous findings. IMPRESSION: Limited exam with no large pulmonary embolism seen. ACT 112: Negative or not required by law. The above report was generated using voice recognition software. It may contain grammatical, syntax o r spelling errors. Electronically signed by: Kolton Morris M.D. 05/12/2025 9:43 AM
--- NOTE | 2025-05-12 12:09 | Neurology Consultation ---
Date of Consultation May 12, 2025 Assessment & Plan (1) Light headedness: Recommend continued stroke work up to include the following: Echocardiogram as part of complete stroke workup Continue frequent neurological assessments Obtain stat CT brain without contrast for any acute neurological decline Monitor orthostatic vital signs frequently Continue to monitor/control blood pressure & blood glucose Continue to monitor telemetry closely Recommend ZioPatch at DC if no evidence of arrhythmia during inpatient monitoring Continue to monitor renal and hepatic function, keep euvolemic Metabolic workup should include hgbA1c, fasting lipids Recommend DAPT for at least 3 weeks Recommend high dose statin therapy indefinitely if tolerated Ok from neurology perspective for VTE prophylaxis PT/OT/SLT to eval and treat Recommend eval for TELMA and consider outpatient polysomnography Plan for continued outpatient follow up with neurology Telehealth Consultation Telehealth Information Telehealth Information: I performed this visit using a real-time telehealth connection between my location and the patients originating location ([facility]). 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 My office door was closed and no one else was present in the room with me.Patient (or authorized healthcare malt liquors sales representative) provided consent to proceed with the visit, expressed an understanding of privacy and security of the telemedicine visit, and gave permission to have a hospital malt liquors sales representative in the room in order to assist with the visit and to conduct portions of the visit, as needed. I informed the patient (or authorized healthcare malt liquors sales representative) that I reviewed their record and presented the opportunity for them to ask any questions regarding the visit today. The patient agreed to participate. History of Present Illness Reason for Consultation: Stroke like symptoms Attending Physician: Lizbet Coats MD History of Present Illness 69year old male with known hx of HTN, prediabetes dyslipidemia and TI has shoulder surgery on 05/01 after then he describes feeling lightheaded. He denies room spinning or sensation of vertigo but continues to reported feeling light headed. No reported cephalgia or cervicalgia. Denies chest pain/palpitations or shortness of breath. No reported changes in vision hearing. Denies full syncope. No signs or symptoms of seizure. Denies recent fevers chills nausea vomiting changes in bowels or bladder. Denies recent medication changes, recent illness or sick contacts, no reported recent travel. Yesterday underwent stroke imaging including CT brain without contrast, personally reviewed today, revealing no overt evidence of hemorrhage. CT angiographic studies of head and neck, also personally reviewed today, reveal no overt evidence of large vessel occlusion or significant/flow limiting stenosis. He has undergone an MRI of his brain with and without contrast personally reviewed revealing no overt evidence of acute intracranial pathology. I have performed televideo consultation. He is alert & oriented; able to answer all questions appropriately, name objects on televideo monitor, repeat phrases and perform complex/embedded commands without deficit. Neurological exam is non lateralizing/nonfocal in terms of motor strength and coordination. Noting limited evaluation of RUE. He is agreeable to DAPT 2-3 weeks and continued outpatient follow up with neurology. Allergies Allergy/AdvReac Type Severity Reaction Status Date / Time No Known Allergies Allergy Verified 05/01/25 09:12 Home Medications Medication Instructions Recorded Confirmed Type tramadol 50 mg tablet 50 mg PO Q6H PRN Pain 10/24/22 05/11/25 History spironolactone 50 mg tablet 50 mg PO QAM 03/09/23 05/11/25 History metoprolol succinate 50 mg 50 mg PO HS 05/30/23 05/11/25 History tablet,extended release 24 hr aspirin 81 mg tablet,delayed 81 mg PO QAM #30 tabs 06/04/23 05/11/25 Rx release atorvastatin 40 mg tablet 80 mg (2 x 40 mg) PO HS #60 tabs 06/04/23 05/11/25 Rx lisinopril 20 1 tab PO QAM 11/11/23 05/11/25 History mg-hydrochlorothiazide 25 mg tablet ibuprofen 800 mg tablet 800 mg PO TID PRN pain #30 tabs 05/03/25 05/11/25 Rx ondansetron 4 mg disintegrating 4 mg PO Q6H PRN nausea and 05/09/25 05/11/25 Rx tablet vomiting #10 tabs oxycodone 5 mg tablet 5 - 10 mg (1 - 2 x 5 mg) PO Q6H 05/09/25 05/11/25 Rx PRN post operative pain #18 tabs amlodipine 10 mg tablet 10 mg PO QAM 05/11/25 05/11/25 History gabapentin 600 mg tablet 600 mg PO TID 05/11/25 05/11/25 History Patient History Medical History History of multiple pulmonary nodules hx lung nodules, they went away per pt. Asymptomatic PVCs Hyperlipidemia HTN (hypertension) History of postoperative nausea and vomiting maybe 1 time, mild. Scoliosis Chronic neck pain full rom Chronic back pain Pre-diabetes History of kidney stones Anxiety History of depression History of prostate cancer dx approx 2020, hx prostatectomy. History of skin cancer History of COVID-19 Dx 04/27/20 (report documented in [facility]) > symptoms at time of low grade fever, body aches, elevated BP > symptoms resolved/currently asymptomatic no hx hospitalization. Lumbar radiculopathy Osteoarthritis History of nocturia Surgical History History of revision of total replacement of left knee joint History of lumbar fusion approx 2021 History of total left knee replacement History of total right knee replacement (TKR) (~08/2021) [facility] Hx of prostatectomy due to cancer and no chemo/radiation needed, approx 2020 History of arthroscopy Right knee History of carpal tunnel release R/L History of tonsillectomy History of lithotripsy Right ESWL: 05/31/19[place] [facility] [place] History Father Diabetes Mother Hypertension Sister Cancer Social History Smoking Status: Never smoker Tobacco Type: Cigarettes Second Hand Exposure: No; Do You Dip or Chew Tobacco: No; Hx Alcohol Use: No Hx Substance Use: No Preferred Language: Japanese Communication Ability: Effective Visual Impairment: No Limitations Hearing Ability: Normal Data Governance Consultant Required: No Beliefs That Will Affect Care: None marital status: Current Living Situation: Other Current Living Situation Comment: With son current occupational status: employed How many Children do You have: 3 Feels Safe at Home: Yes Safety Concerns: Feels Safe At This Time Assistive Devices: None Assistive Devices Comment: splint Physical Exam Neurological Examination: Mental Status: Awake and alert. Oriented to person, place, and time. Fluency naming repetition and comprehension appear grossly intact. Affect remains appropriate. CN testing: I: Deferred II: Reports no changes in visual acuity III/IV/: No evidence of gaze preference, hippus, nystagmus or roving eye movements V: Facial sensation reportedly grossly intact to light touch bilaterally VII: Facial movements appear without evidence of asymmetry VIII: Hearing appears grossly intact to loud voice bilaterally IX/X: Palate is unable to be accurately visualized XI: Shoulder shrug asymmetric XII: Tongue protrudes midline without evidence of biting Motor exam: Strength appears grossly intact in all extremities RUE limited exam Tone: Unable to accurately assess via telemedicine Sensory: Sensation is reportedly grossly intact throughout Coordination: No apparent evidence of dysmetria or dysdiadochokinesia Reflexes: Unable to accurately assess via telemedicine Gait: Deferred Results & Data Vital Signs (Past 12 Hours) Vital Signs Temp Pulse Pulse Resp BP Pulse Ox O2 Del Method 05/12/25 09:59 86 05/12/25 08:57 36.8 C 93 H 17 153/91 H 93 Room Air Laboratory Results Abnormal lab results 05/11/25 05/11/25 05/12/25 Range/Units 17:24 17:31 01:19 WBC 11.83 H (4.8-10.8) K/ul RBC 4.61 L (4.70-6.10) M/uL Hgb (14.0-18.0) g/dL Hct (42.0-52.0) % RDW Std Deviation 50.5 H (36.4-46.3) fL RDW Coeff of Jay (11.5-14.5) % Plt Count 420 H (130-400) K/uL MPV 8.9 L (9.4-12.4) fL Neut # (Auto) 8.51 H (1.40-6.50) K/uL Door # (Auto) 1.06 H (0.11-0.59) K/uL D-Dimer (0-500) ug/L FEU BUN/Creatinine Ratio 21.1 H (10-20) Glucose 115 H (70-99(Fasting)) mg/dl POC Glucose (other) 115 H (70-99) mg/dl Hemoglobin A1c (4.5-5.6) % Alkaline Phosphatase 142 H (34-104) U/L Ur Specific [place] > 1.045 H (1.000-1.030) Urine Blood Trace H (Negative) 05/12/25 Range/Units 06:49 WBC 11.43 H (4.8-10.8) K/ul RBC 4.01 L (4.70-6.10) M/uL Hgb 12.7 L (14.0-18.0) g/dL Hct 38.8 L (42.0-52.0) % RDW Std Deviation 53.1 H (36.4-46.3) fL RDW Coeff of Jay 14.9 H (11.5-14.5) % Plt Count (130-400) K/uL MPV 8.8 L (9.4-12.4) fL Neut # (Auto) 7.48 H (1.40-6.50) K/uL Door # (Auto) 1.09 H (0.11-0.59) K/uL D-Dimer 4880 H* (0-500) ug/L FEU BUN/Creatinine Ratio (10-20) Glucose 126 H (70-99(Fasting)) mg/dl POC Glucose (other) (70-99) mg/dl Hemoglobin A1c 6.3 H (4.5-5.6) % Alkaline Phosphatase (34-104) U/L Ur Specific [place] (1.000-1.030) Urine Blood (Negative) Diagnostic Findings Chest X-Ray 05/11/25 17:21 EXAM: X-ray chest one-view portable CLINICAL HISTORY: Recent shoulder cuff surgery 9 days ago with nausea pain since PRIORS: 10/07/2024 TECHNIQUE: Portable upright AP chest FINDINGS: Diminished lung volumes noted. No airspace consolidation, effusion or congestive changes. Heart size is unchanged. No pneumothorax. Trachea is patent. Osseous structures demonstrate no acute abnormality. No radiopaque foreign body. IMPRESSION: No plain film evidence of an acute cardiopulmonary process. If clinically appropriate, chest CT could be considered. Electronically signed by So Frost 05-11-2025 6:24 PM Head CTA 05/11/25 17:21 HISTORY: HEADACHES TECHNIQUE: CT angiography of the head and the neck was performed. Coronal and sagittal reformats were created. IV CONTRAST: 100 mL of OMNIPAQUE 300 COMPARISON: FINDINGS: CTA HEAD: Stenotic/occlusive disease: Focal stenosis of the left CARBURETOR REBUILDER P1 segment Aneurysm: None Vascular malformation: None. Generalized prominent appearance of the intracranial arterial vessels NONVASCULAR: Brain parenchyma: Chronic white matter ischemic changes Extra-axial space: Unremarkable Ventricular system: Unremarkable Additional comments: None CTA NECK: Right carotid: No hemodynamically significant stenosis. Left carotid: No hemodynamically significant stenosis. Vertebrobasilar system: No hemodynamically significant stenosis. Aortic arch and subclavian arteries: No hemodynamically significant stenosis. Nonvascular structures: Unremarkable. Stenosis ranges are derived using NASCET criteria. IMPRESSION: No acute intracranial process is identified in the dry CT No large vessel occlusion Focal stenosis of the left CARBURETOR REBUILDER P1 segment Generalized prominent appearance of the intracranial arterial vessels which suggests chronic systemic hypertension Electronically signed by Paras Hawkins 05-11-2025 6:40 PM Neck CTA 05/11/25 17:21 HISTORY: HEADACHES TECHNIQUE: CT angiography of the head and the neck was performed. Coronal and sagittal reformats were created. IV CONTRAST: 100 mL of OMNIPAQUE 300 COMPARISON: FINDINGS: CTA HEAD: Stenotic/occlusive disease: Focal stenosis of the left CARBURETOR REBUILDER P1 segment Aneurysm: None Vascular malformation: None. Generalized prominent appearance of the intracranial arterial vessels NONVASCULAR: Brain parenchyma: Chronic white matter ischemic changes Extra-axial space: Unremarkable Ventricular system: Unremarkable Additional comments: None CTA NECK: Right carotid: No hemodynamically significant stenosis. Left carotid: No hemodynamically significant stenosis. Vertebrobasilar system: No hemodynamically significant stenosis. Aortic arch and subclavian arteries: No hemodynamically significant stenosis. Nonvascular structures: Unremarkable. Stenosis ranges are derived using NASCET criteria. IMPRESSION: No acute intracranial process is identified in the dry CT No large vessel occlusion Focal stenosis of the left CARBURETOR REBUILDER P1 segment Generalized prominent appearance of the intracranial arterial vessels which suggests chronic systemic hypertension Electronically signed by Paras Hawkins 05-11-2025 6:40 PM Venous Doppler Study 05/11/25 17:43 Ultrasound EXAMINATION: Extremity ultrasound lower extremity RIGHT CLINICAL HISTORY: Swelling PRIORS: None TECHNIQUE: Ultrasound interrogation of the deep venous structures was performed with grayscale, color Doppler, compression and augmentation. FINDINGS: The right common femoral, superficial femoral, saphenous, popliteal and tibial veins demonstrate normal compressibility, frequency and augmentation. IMPRESSION: No sonographic evidence of deep venous thrombosis in the right lower extremity. Electronically signed by So Frost 05-11-2025 7:14 PM Brain MRI 05/11/25 23:23 EXAM: MR brain wo/w con CLINICAL HISTORY: persisistet dizziness TECHNIQUE: Multisequential and multiplanar images of the brain were submitted for review without and with contrast. COMPARISON: 16:51:08 HOSE MENDER FINDINGS: Generalized parenchymal atrophy is appreciated. Scattered foci of increased T2/FLAIR signal abnormality are identified within the bilateral periventricular and subcortical white matter, and are most commonly associated with chronic small vessel ischemic disease. No focal parenchymal lesions are seen. No intracranial hemorrhage, mass effect, midline shift, extra-axial collection, or hydrocephalus is identified. Ventricles, sulci, and basal cisterns are symmetric and normal in size and configuration. Diffusion-weighted sequences show no evidence of acute ischemic infarction. Prominent VR spaces noted involving right basal ganglia.-stable. Midline structures including the pituitary gland, corpus callosum, pineal region, and brainstem are unremarkable. The craniovertebral junction is within normal limits. No calvarial abnormalities are identified. The paranasal sinuses and mastoid air cells are clear. Orbital structures are unremarkable. Appropriate flow voids are present in the visualized intracranial vessels. IMPRESSION: 1. No acute ischemia, space occupying mass, or other acute intracranial pathology is demonstrated. 2. Chronic small vessel ischemic disease.-stable. 3. Diffuse cerebral atrophy.-stable. Electronically signed by Leo Chávez 05-12-2025 04:35 AM Chest CTA 05/12/25 08:02 CT angio chest PE protocol CT DOSE: 1114.09 mGy.cm HISTORY: PE. TECHNIQUE: Multiple CTA images of the chest were obtained after the intravenous administration of 112 ml Optiray. Coronal and sagittal MIPS were obtained from the axial data set and were submitted for review. All measurements were obtained according to NASCET criteria. A dose lowering technique was utilized adhering to the principles of ALARA. COMPARISON STUDY: 08/05/2022 FINDINGS: There is mild atelectasis in the lung bases. No other pulmonary consolidation or pleural effusion. No pneumothorax. No enlarged adenopathy. Evaluation for pulmonary embolism is limited by suboptimal contrast bolus. There is no evidence of large central, main, or lobar pulmonary embolism. Otherwise evaluation of the segmental and smaller pulmonary arterial branches is nondiagnostic. There are mild diffuse thoracic spine degenerative changes. Stable mild height loss at a few thoracic vertebral bodies. Stable small oval lucent findings at the T10 vertebral body. No interval osseous findings. IMPRESSION: Limited exam with no large pulmonary embolism seen. ACT 112: Negative or not required by law. The above report was generated using voice recognition software. It may contain grammatical, syntax or spelling errors. Electronically signed by: Kolton Morris M.D. 05/12/2025 9:43 AM Medications Administered Home Medications Medication Instructions Recorded Confirmed Last Taken tramadol 50 mg tablet 50 mg PO Q6H PRN Pain 10/24/22 05/11/25 04/30/25 15:00 spironolactone 50 mg tablet 50 mg PO QAM 03/09/23 05/11/25 05/11/25 metoprolol succinate 50 mg 50 mg PO HS 05/30/23 05/11/25 05/10/25 tablet,extended release 24 hr aspirin 81 mg tablet,delayed 81 mg PO QAM #30 tabs 06/04/23 05/11/25 05/11/25 release atorvastatin 40 mg tablet 80 mg (2 x 40 mg) PO HS #60 tabs 06/04/23 05/11/25 05/10/25 lisinopril 20 1 tab PO QAM 11/11/23 05/11/25 05/11/25 mg-hydrochlorothiazide 25 mg tablet ibuprofen 800 mg tablet 800 mg PO TID PRN pain #30 tabs 05/03/25 05/11/25 Unknown ondansetron 4 mg disintegrating 4 mg PO Q6H PRN nausea and 05/09/25 05/11/25 Unknown tablet vomiting #10 tabs oxycodone 5 mg tablet 5 - 10 mg (1 - 2 x 5 mg) PO Q6H 05/09/25 05/11/25 Unknown PRN post operative pain #18 tabs amlodipine 10 mg tablet 10 mg PO QAM 05/11/25 05/11/25 05/11/25 gabapentin 600 mg tablet 600 mg PO TID 05/11/25 05/11/25 05/11/25 x2 Active Medications Generic Name Dose Route Start Last Admin Trade Name Freq PRN Reason Stop Dose Admin Amlodipine Besylate 10 mg 05/12/25 09:00 05/12/25 08:12 Amlodipine Besylate 5 Mg Tab PO 06/11/25 08:59 10 mg QAM TISHA Administration Aspirin 81 mg 05/12/25 09:00 05/12/25 08:12 Aspirin 81 Mg Ectab PO 06/11/25 08:59 81 mg QAM TISHA Administration Gabapentin 600 mg 05/12/25 09:00 05/12/25 08:12 Gabapentin 600 Mg Tab PO 06/11/25 08:59 600 mg TID TISHA Administration Sodium Chloride 500 mls @ 80 mls/hr 05/12/25 08:15 05/12/25 08:35 Nss IV 05/12/25 14:29 80 mls/hr .Q6H15M TISHA Administration Lisinopril 20 mg 05/12/25 09:00 05/12/25 09:30 Lisinopril 20 Mg Tab PO 06/11/25 08:59 20 mg QAM TISHA Administration Oxycodone HCl 5 - 10 mg 05/11/25 23:23 05/12/25 08:12 Oxycodone Hcl Ir 5 Mg Tab (Immediate Release) PO 05/25/25 23:22 5 mg Q6H PRN Administration post operative pain Spironolactone 50 mg 05/12/25 09:00 05/12/25 08:12 Spironolactone 25 Mg Tab PO 06/11/25 08:59 50 mg QAM TISHA Administration
--- NOTE | 2025-05-12 12:46 | Electrocardiogram Report ---
Test Reason : Blood Pressure : */* mmHG Vent. Rate : 113 BPM Atrial Rate : 113 BPM P-R Int : 170 ms QRS Dur : 86 ms QT Int : 346 ms P-R-T Axes : 63 20 19 degrees QTcB Int : 474 ms Sinus tachycardia with frequent Premature ventricular complexes in a pattern of bigeminy Otherwise normal ECG When compared with ECG of 27-Mar-2025 10:17, Premature ventricular complexes are now Present T wave inversion now evident in Inferior leads Confirmed by Bladimir Ramírez ([id number]) on 05/12/2025 12:46:07 PM Referred By: Confirmed By: Bladimir Ramírez
[2025-05-12] MEDS: CLOPIDOGREL BISULFATE 75 MG TAB PO SCH (12:50)
--- NOTE | 2025-05-12 12:52 | Hospitalist Progress Note ---
Date of Service May 12, 2025 Assessment & Plan (1) Dizziness: Plan: 69-year-old male with past med history significant for dyslipidemia, prediabetes, hypertension, prostate cancer, generalized osteoarthritis, cervicalgia, history of TIA, history of lumbar fusion surgery comes with persistent dizziness since he had right shoulder surgery on May 01, 2025 (reattachment of long head of the biceps, repair of full-thickness rotator cuff tear and removal of lipoma) Dizziness Persistent since his right shoulder surgery May 01 CTA head no acute findings except for focal stenosis of left COIN COLLECTOR P1 segment CTA neck no acute findings MRI brain noted no acute ischemia. 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 Ambulate Full code I spent a total of 45 minutes coordinating, documenting and providing care for this patient excluding time spent in performance of separately billed services Admission and Anticipated Discharge Date Admission Date: May 11, 2025 Subjective Patient seen and examined Reports dizziness since Right shoulder surgery Reports feeling better at this time Has some pain on Rt shoulder surgical site which is well controlled Denied other complaints on ROS Physical Exam Constitutional: + well hydrated; no acute distress Eyes: PERRL, conjunctivae normal, anicteric sclerae ENMT: external ear and nose normal, oropharynx normal Respiratory: normal respiratory effort, lungs clear to auscultation Cardiovascular: Rate/Rhythm: regular rate and regular rhythm Gastrointestinal (Abdomen): normal bowel sounds, soft, nontender, no hepatosplenomegaly Musculoskeletal: RUE in sling RLE edema (reports this is chronic) Neurologic: PERRL, EOMI, accommodation nl, no face palsy, no dysarthria Psychiatric: A+Ox3, euthymic affect Results & Data Results & Data Vital Signs (Past 12 Hours) Vital Signs Temp Pulse Pulse Resp BP Pulse Ox O2 Del Method 05/12/25 12:49 36.8 C 74 18 158/91 H 94 Room Air 05/12/25 09:59 86 05/12/25 08:57 36.8 C 93 H 17 153/91 H 93 Room Air Laboratory Results Abnormal lab results 05/11/25 05/11/25 05/12/25 Range/Units 17:24 17:31 01:19 WBC 11.83 H (4.8-10.8) K/ul RBC 4.61 L (4.70-6.10) M/uL Hgb (14.0-18.0) g/dL Hct (42.0-52.0) % RDW Std Deviation 50.5 H (36.4-46.3) fL RDW Coeff of Jay (11.5-14.5) % Plt Count 420 H (130-400) K/uL MPV 8.9 L (9.4-12.4) fL Neut # (Auto) 8.51 H (1.40-6.50) K/uL Butts # (Auto) 1.06 H (0.11-0.59) K/uL D-Dimer (0-500) ug/L FEU BUN/Creatinine Ratio 21.1 H (10-20) Glucose 115 H (70-99(Fasting)) mg/dl POC Glucose (other) 115 H (70-99) mg/dl Hemoglobin A1c (4.5-5.6) % Alkaline Phosphatase 142 H (34-104) U/L Ur Specific [place] > 1.045 H (1.000-1.030) Urine Blood Trace H (Negative) 05/12/25 Range/Units 06:49 WBC 11.43 H (4.8-10.8) K/ul RBC 4.01 L (4.70-6.10) M/uL Hgb 12.7 L (14.0-18.0) g/dL Hct 38.8 L (42.0-52.0) % RDW Std Deviation 53.1 H (36.4-46.3) fL RDW Coeff of Jay 14.9 H (11.5-14.5) % Plt Count (130-400) K/uL MPV 8.8 L (9.4-12.4) fL Neut # (Auto) 7.48 H (1.40-6.50) K/uL Butts # (Auto) 1.09 H (0.11-0.59) K/uL D-Dimer 4880 H* (0-500) ug/L FEU BUN/Creatinine Ratio (10-20) Glucose 126 H (70-99(Fasting)) mg/dl POC Glucose (other) (70-99) mg/dl Hemoglobin A1c 6.3 H (4.5-5.6) % Alkaline Phosphatase (34-104) U/L Ur Specific [place] (1.000-1.030) Urine Blood (Negative)
--- NOTE | 2025-05-12 12:55 | Electrocardiogram Report ---
Test Reason : Blood Pressure : */* mmHG Vent. Rate : 89 BPM Atrial Rate : 89 BPM P-R Int : 174 ms QRS Dur : 78 ms QT Int : 380 ms P-R-T Axes : 64 32 46 degrees QTcB Int : 462 ms Poor data quality, interpretation may be adversely affected Sinus rhythm with occasional Premature ventricular complexes Otherwise normal ECG When compared with ECG of 11-May-2025 17:39, (unconfirmed) Nonspecific T wave abnormality has replaced inverted T waves in Inferior leads Confirmed by Bladimir Ramírez ([id number]) on 05/12/2025 12:54:50 PM Referred By: Demetrio Guzman Confirmed By: Bladimir Ramírez
--- NOTE | 2025-05-12 16:43 | XCELERA ---
[id number] \\[id number]
[2025-05-12] MEDS: ATORVASTATIN 40 MG TAB PO SCH (20:14)
[2025-05-12] MEDS: METOPROLOL SUCC 50MG EXT REL TAB PO SCH (20:14)
[2025-05-13 07:04] VITALS: BP 158/98; RESP 18; TEMP 97.3
[2025-05-13 07:18] LABS: Hematocrit (blood only) 34.5 % (42.0-52.0); Hemoglobin 11.7 g/dL (14.0-18.0); Mean Corpuscular Hemoglobin 32.1 pg (25.0-34.0); Mean Corpuscular Volume 94.8 fL (80.0-100.0); Platelet Count 342 K/uL (130-400); RDW Standard Deviation 51.3 fL (36.4-46.3); Red Blood Count 3.64 M/uL (4.70-6.10); White Blood Count 8.56 K/ul (4.8-10.8)
[2025-05-13 07:28] VITALS: PULSE 75
[2025-05-13 07:33] LABS: Anion Gap 7.0 (3-11); Blood Urea Nitrogen 17.0 mg/dl (6-23); Calcium 8.5 mg/dl (8.6-10.3); Carbon Dioxide 28.0 mmol/L (21-32); Chloride 106.0 mmol/L (98-107); Creatinine Clr Calc Pharmacy 93.8 ml/min; Glucose 99.0 mg/dl (70-99(Fasting)); Potassium 4.1 mmol/L (3.5-5.1); Sodium 141.0 mmol/L (136-145)
--- NOTE | 2025-05-13 11:09 | Discharge Summary ---
Date of Service May 13, 2025 Admission HPI Per Admitting Provider 69-year-old male with past med history significant for dyslipidemia, prediabetes, hypertension, prostate cancer, generalized osteoarthritis, cervicalgia, history of TIA, history of lumbar fusion surgery comes with pe rsistent dizziness. Patient had right shoulder surgery on May 01, 2025 including reattachment of long head of the biceps, repair of full-thickness rotator cuff tear and removal of lipoma. Patient states since his right shoulder surgery he is feeling dizziness. States dizziness has been persistent. Associated with nausea. Sometimes he is unsteady while walking. As he is not getting better he came to the ER today. Denies any headache. Vision is okay. No runny nose or sore throat. No difficulty swallowing. Appetite is okay. Denies chest pain or shortness of breath. No cough. No fevers. No abdominal pain. Normal bladder movements. He was constipated from Oxy but that has been resolved. Hemodynamics are okay currently. Past medical history. As mentioned above. Past surgical history. Right total knee arthroplasty. Drainage of pilonidal cyst. Fragmentation of kidney stone by shockwave. Injection of lumbosacral spine. Left knee revision. Left knee replacement. Tonsillectomy and adenoidectomy. Social history. No smoking. No alcohol use. No drug use. Family history. Father had lymphocytic leukemia. Diabetes. Sister had basal cell cancer. Mother has hypertension. Admission Exam Per Admitting Provider General- Not in acute distress Head- atraumatic Eyes- PERRL, EOMI, no nystagmus ENT- oropharynx clear Neck- supple, no JVD. Lungs- clear to auscultation no wheezing or crackles Heart- regular rhythm; no murmur, no gallop. Abdomen- normal bowel sounds, soft, nontender, no distension Extremities- no pretibial edema, no erythema seen. Neuro- alert, oriented PERRL, no facial palsy; no dysarthria; motor 5/5 bilaterally; coordination of movements normal, sensations intact Principal Diagnosis Dizziness Discharge Exam Constitutional + well hydrated; no acute distress Eyes PERRL, conjunctivae normal, anicteric sclerae ENMT external ear and nose normal, oropharynx normal Respiratory normal respiratory effort, lungs clear to auscultation Cardiovascular Rate/Rhythm: regular rate and regular rhythm Gastrointestinal (Abdomen) normal bowel sounds, soft, nontender, no hepatosplenomegaly Neurologic PERRL, EOMI, accommodation nl, no face palsy, no dysarthria Psychiatric A+Ox3, euthymic affect Discharge Data Allergies Allergy/AdvReac Type Severity Reaction Status Date / Time No Known Allergies Allergy Verified 05/01/25 09:12 Consultations 05/11/25 20:15 ED Decision to Admit Stat 05/12/25 08:00 Consult Neurology Routine Ordered Studies 05/11/25 17:21 CT angio head wo/w Stat CT angio neck with con Stat 05/11/25 17:43 US venous doppler LE RT Stat 05/11/25 23:23 MRI Brain [MR brain wo/w con] Urgent 05/12/25 08:02 CT angio chest PE protocol Urgent Hospital Course (1) Dizziness: 69-year-old male with past med history significant for dyslipidemia, prediabetes, hypertension, prostate cancer, generalized osteoarthritis, cervicalgia, history of TIA, history of lumbar fusion surgery comes with persistent dizziness since he had right shoulder surgery on May 01, 2025 (reattachment of long head of the biceps, repair of full-thickness rotator cuff tear and removal of lipoma) Dizziness Persistent since his right shoulder surgery May 01 CTA head no acute findings except for focal stenosis of left FLASK HANDLER P1 segment CTA neck no acute findings MRI brain noted no acute ischemia. Noted chronic small vessel ischemic disease Neuro recommends continued stroke workup, DAPT for 3 weeks, outpatient ziopatch and outpt neuro f/u TTE noted mild conc LVH, EF 60-65% Patient to continue outpatient PT Lower extreme edema Right lower extremity Doppler negative for DVT Elevated DDimer 4880 CT PE was negative for PE Prediabetes HbA1c 6.3 History of TIA On aspirin and statin Shoulder pain From surgery Chronic back pain Educated patient regarding opioids side effects as this can be contributing to dizziness Hyperlipidemia On statin Hypertension On amlodipine and metoprolol succinate and Aldactone Total Time Total Time Spent Total Time Spent (In Minutes): 35 Total Time Includes: Examination of the Patient, Discharge Planning and Medication Reconciliation Discharge Plan Discharge Items Patient Disposition: Home - Self-Care Reason For Visit: PERSISTENT DIZZINESS Discharge Diagnosis: Dizziness Condition on Discharge: Good Activity: Resume your previous activity Non-emergency contact: Primary Care Provider Call non-emergency contact if: you have any medication questions Follow-up/Referrals: Braden Zamora MD [Primary Care Provider] - (Date & Time 05/20/2025 10:20 AM Provider: Braden Zamora MD [facility], [facility] ) Cheikh Mcbride DO [Physician] - 05/30/25 1:00 pm Diet: Heart Healthy Addtl Attending Provider Instructions: Mr Florian You hospitalized for the above listed diagnosis. You were started on plavix for 3 weeks as recommended by Neurology. Please continue your Aspirin 81mg daily Please ensure follow up with your Primary Doctor and Neurology It was a pleasure taking care of you Pending Studies at Discharge: No Stand-Alone Forms: My [facility], Smoking Cessation Medications and DC Order Prescriptions: New clopidogrel 75 mg Tablet 75 mg PO QAM 20 Days Qty: 20 0RF Continued oxycodone 5 mg tablet 5 - 10 mg PO Q6H MDD 6 tablets PRN (Reason: post operative pain) Qty: 18 0RF ondansetron 4 mg tablet,disintegrating 4 mg PO Q6H PRN (Reason: nausea and vomiting) Qty: 10 0RF tramadol 50 mg tablet 50 mg PO Q6H PRN (Reason: Pain) Hold Instructions: Resume on 06/13/25. sending in Oxy for post op pain aspirin 81 mg Tablet,Delayed Release (Dr/Ec) 81 mg PO QAM Qty: 30 0RF atorvastatin 40 mg tablet 80 mg PO HS Qty: 60 0RF spironolactone 50 mg tablet 50 mg PO QAM metoprolol succinate 50 mg tablet extended release 24 hr 50 mg PO HS lisinopril-hydrochlorothiazide 20-25 mg Tablet 1 tab PO QAM ibuprofen 800 mg tablet 800 mg PO TID PRN (Reason: pain) Qty: 30 0RF Rx Instructions: with food gabapentin 600 mg tablet 600 mg PO TID amlodipine 10 mg tablet 10 mg PO QAM Discharge Orders: Discharge Order (Routine); Ordered 05/13/25 Ordered By: Lizbet Vicente/Other Patient Handouts: Prediabetes, 5 Steps for Eating Healthier Admission Data Admit Date/Time: 05/11/25 22:40 Attending Provider: Lizbet Coats I. Admit Provider: Will Mercedes Primary Care Provider: Braden Zamora Other Providers: Will Mercedes; Ni Richardson; Maximo De Leon; Ni Mcdaniel; Kolton Hirsch; Masood Belcher; Cheikh Mcbride; Felix Fish; Adwoa Garcia; Magdi Panda; Kailash Miner; Justin Page; Zackery Donis; Mariella George; Felix Gonzalez; Emi Melendez; Olinda Crockett; Melania Newby Other Interventions: Discharge Summary Assessment (RN) Last Done: 05/13/25 11:21
[2025-05-13 11:45] VITALS: O2SAT 94
[2025-05-13] MEDS: PNEUMOCOCCAL VACCINE (PCV20) 20-VAL CONJ-DIP CRM/PF 0.5 ML SYR IM ONE (12:49)
== END 2025-05-13 12:53 | disposition home or self-care (01) | DRG 149 ==
LOC: ED 17:04 → 2W 22:40